=== PATIENT | female | born 1940 | race Caucasian/White ===

== ENCOUNTER 2023-08-23 18:06 | Emergency (ER) | payer OTHER, SELFPAY ==
[2023-08-23 18:08] VITALS: BP 171/94
--- NOTE | 2023-08-23 20:11 | ED.GENMED ---
History of Present Illness
General
Chief Complaint: Fall
Source: patient
Exam Limitations: none
Time Seen by Provider: 08/23/23 18:52
Nursing documentation reviewed up to this point in time: agreed with
Travel History
Have you had any contact with someone who has COVID-19?: No
Do you have any symptoms of coronavirus? Fever > 100 degrees, chills, cough, shortness of breath, sore throat, loss of taste or smell, muscle aches, or headache?: No
History of Present Illness
History of Present Illness:
83-year-old female with past ministry of hypertension hyperlipidemia presenting to the emergency department today after a trip and fall over a curb prior to arrival she did not lose consciousness but did hit the left side of her face and her left
wrist as well as in her right hand. Denies any current symptoms no neck pain no numbness weakness no chest pain no abdominal pain no low back pain. Patient is not on thinners.
Review of Systems
Review of Systems
Allergies reviewed?: Yes
All Other Systems: ROS reviewed and negative except as documented in HPI and ROS
Phy Exam
Physical Exam
Physical Exam:
GENERAL: Alert , in no apparent distress
EYE: pupils equal and reactive
NECK: Supple, no significant adenopathy.
ENT: Swelling to her left eye but otherwise normal appearing eye normal extraocular movements. Laceration to left upper lip is very superficial no gaping no foreign body seen normal posterior pharynx o/p clr, mmm.
CARDIAC: Regular rate and rhythm .
LUNGS: Clear breath sounds bilaterally, no acute respiratory distress, no wheezes/rales/rhonchi
ABDOMEN: Soft, without focal tenderness, no r/g, no cvat
NEUROLOGICAL: Alert and oriented, no focal neuro deficits 5-5 upper and lower extremity strength normal sensation were palpated bilaterally normal finger-nose and [id number] no pronator
SKIN: Warm and dry, skin intact. Superficial scrapes and abrasions throughout the hands bilaterally with a hematoma to the left wrist on the palmar aspect roughly 5 cm in diameter.
MUSCULOSKELETAL: No edema, well perfused.
PSYCH: Normal and appropriate interaction.
Course
Orders/Labs/Results
Orders:
Orders
08/23/23 18:18
[address] Bones wo Contrast CT [CT Facial Bones W/o Iv Contras] Urgent
Comment:
Reason For Exam: fall, head injury
Head wo Contrast CT [CT Head W/o Iv Contrast] Urgent
Comment:
Reason For Exam: fall with head injury
Vital Signs
Initial and Last Documented VS:
Initial Vital Signs
Temp Pulse Resp BP Pulse Ox
97.8 F 70 18 171/94 97
08/23/23 18:08 08/23/23 18:08 08/23/23 18:08 08/23/23 18:08 08/23/23 18:08
Last Documented Vital Signs
Temp Pulse Resp BP Pulse Ox
97.8 F 70 18 171/94 97
08/23/23 18:08 08/23/23 18:08 08/23/23 18:08 08/23/23 18:08 08/23/23 18:08
MDM/Problems Addressed
MDM/Problems Addressed:
83-year-old female presenting to the emergency department today with concerns of a fall where she did her face and her wrist bilaterally. Here had a CT scan of her head and face without signs of emergent findings. No signs of significant
lacerations requiring closure no signs of emergent injuries on exam from head to toe normal neurologic evaluation no neck pain. Patient appears stable for discharge return precautions given.
*Critical Care Note
Total Time (30-74mins, 75-104mins- exclusive of procedures): Not Applicable
ED Attending Note
-
Portions of this chart may have been created with voice recognition software.� Occasional wrong word or��sound alike� substitutions may have occurred due to the inherent limitations of voice recognition software.
Discharge Plan
Departure
Patient Disposition: Home (Routine Discharge)
Date of Disposition: 08/23/23
Time of Disposition: 20:11
Patient with high blood pressure during this ER visit?: No
Condition: Good
Covid-19: Not Applicable
Discharge Problem:
Fall, Laceration of lip, Abrasion of left eyebrow, Contusion of face, Hematoma of left wrist
Instructions: Wound Care (DC), Preventing falls in adults, Skin Abrasions (DC)
Activity Restrictions/Additional Instructions:
You came to the emergency department today after a fall. Here you had a reassuring examination and CT scans of the face and head without signs of emergent injury. Please rest and ice areas that are swollen and in pain over the next 2 to 3 days.
You can use warm compresses after this. Return to the emergency department immediately for any worsening, new or concerning symptoms.
Interventions
Interventions:
*Risk Screen - Suicide Last Done: 08/23/23 20:16
*General Assessment Last Done: 08/23/23 20:16
*Neglect/Abuse Screening Last Done: 08/23/23 20:16
ED- Fall Risk Assessment Last Done: 08/23/23 20:16
*ED COVID-19 Vaccine History Last Done: 08/23/23 19:25
*Nursing Disposition Last Done: 08/23/23 20:16
ED-Musculoskeletal Assessment Last Done: 08/23/23 19:25
ED- Neurological Assessment Last Done: 08/23/23 19:25
ED-Skin Assessment Last Done: 08/23/23 19:25
Discharge Date and Time
Discharge Date/Time: 08/23/23 20:18
== END 2023-08-23 20:18 | disposition home or self-care (01) ==
LOC: EMR 18:06
PROVIDERS: EMERGENCY PHYSICIAN Emergency Medicine; FAMILY PHYSICIAN Family Medicine
DX: S01.511A Laceration without foreign body of lip, initial encounter (principal); S60.812A Abrasion of left wrist, initial encounter; S60.212A Contusion of left wrist, initial encounter; W01.0XXA Fall on same level from slipping, tripping and stumbling without subsequent striking against object, initial encounter
CPT/HCPCS: 99284; 70450; 70486

== ENCOUNTER 2023-09-25 16:30 | Inpatient (IN) | payer OTHER, SELFPAY ==
[2023-09-25] VITALS (7 sets, daily range): BP systolic 138–191; BP diastolic 68–109; BMI 25.4; BMI 22.1
[2023-09-25 14:39] LABS: Glucose - Point of Care 92 mg/dl (70-99)
--- NOTE | 2023-09-25 14:43 | ED.CVA ---
History of Present Illness
General
Chief Complaint: CVA/TIA Symptoms
Source: patient and ambulance crew
Exam Limitations: none
Time Seen by Provider: 09/25/23 14:41
Onset of Stroke Symptoms
Onset of symptoms known: Yes
Date of onset of symptoms: 09/25/23
Time of onset of symptoms: 04:00
History of Present Illness
History of Present Illness:
83-year-old female got up at 3 AM for unknown reason. At 4 AM noted a change in mental status difficulty with speech and weakness. She collapsed to the floor at around noon time. No thinners.
Past History
Past History
ED Past Medical History: HTN and Hypothyroidism
Social History
Tobacco: Non-smoker
Personal:
Living: with family
Employment: Retired
Phy Exam
Physical Exam
Physical Exam:
GENERAL: Alert and oriented in no apparent distress
EYE: Orbits normal.
NECK: Supple
CARDIAC: Regular rate and rhythm without any obvious murmurs.
LUNGS: Clear breath sounds,normal
ABDOMEN: Soft, without focal tenderness or distention
NEUROLOGICAL: Alert and oriented , mild slurred speech. Mild right facial droop. Mild right arm drift. Mild lower right leg drift. Poor [id number] on the right.
SKIN: Warm and dry, no rash or lesion, no discoloration, skin intact.
MUSCULOSKELETAL: No edema,no deformity.Good color
PSYCH: Normal and appropriate interaction.
Course
Orders/Labs/Results
Orders:
Orders
09/25/23 14:37
Electrocardiogram (*1) Urgent
Reason for Study: Other
Other Reason for Exam: Possible Stroke
Bedside Glucose- Treatment ONCE
Cardiac Monitoring- Treatment ONCE
EKG- Treatment ONCE
IV Insert/Care/Rem.- Treatment PRN
Vital Signs As Directed
Frequency: Other
Weight As Directed
Frequency: Once
Comment: ZERO STRETCHER SCALE FOR ACCURATE WEIGHT
O2 Therapy [RESP] Urgent
Titrate/Wean O2 to maintain O2 sat greater than (%): 93
Special Instructions: MAINTAIN CONTINUOUS O2 SATS > OR = 93%
09/25/23 14:41
CT Head W/o Cont STROKE ALERT Urgent
Comment:
Reason For Exam: Right facial droop/slurred speech/right-sided weak
CT Head/Neck Ang STROKE ALERT Urgent
Comment:
Reason For Exam: Right facial droop/weakness/slurred speech
IV Insert/Care/Rem.- Treatment PRN
09/25/23 14:44
Complete Blood Count/With Diff Urgent
Comprehensive Metabolic Panel Urgent
PTT Urgent
Prothrombin Time Urgent
Troponin I Urgent
09/25/23 15:25
Aspirin Chewable [Low Strength Aspirin] 324 mg PO NOW STA
Clopidogrel Bisulfate [Plavix] 300 mg PO NOW STA
09/25/23 15:32
Clopidogrel Bisulfate [Plavix] 300 mg .ROUTE .STK-MED ONE
09/25/23 16:13
Admit/Transfer Patient As Directed
Co-Sign Provider:
Level of Care: Inpatient admission
Assign to:: Telemetry
Physician / Group: hospitalist-Andres
Diagnosis: cva
Reason for Telemetry: CVA/TIA
Date to Stop Telemetry: 09/28/23
Time to Stop Telemetry: 11:00
Reason for Hospitalization: needs neuro, asa/plavix, studies, therapy etc
Expected length of stay greater than two midnights?: Yes
ELOS- Estimated Length of Stay in days: 3
I certify the patient meets the requirements for IP care: Yes
09/25/23 16:20
Code Status As Directed
Resuscitation Status: Full Code
09/25/23 17:17
Acetaminophen [Tylenol/Feverall] 650 mg RECTAL Q4HPRN PRN
Acetaminophen [Tylenol] 650 mg PO Q4HPRN PRN
09/25/23 17:17
Echo 2D MMode Color/Doppler Routine
Reason for Study: stroke/TIA
Case Management Consult ONCE
Case Management Consult: Discharge Planning
Comment: stroke/tia
DIETARY CONSULT Routine
Reason for Consult: stroke/TIA
NEUROLOGY CONSULT Urgent
Consulting Provider: Aleksey Narayan
Was physician already notified: Yes
Medical Lab Technologist Urgent
Comprehensive Metabolic Panel Routine
MR Brain Without Contrast Routine
Comment:
Reason For Exam: stroke/TIA
Recent pill cam endoscopy?: No
Activity As Directed
Activity Level: As Tolerated
NIH Stroke Scale As Directed
Directions: Per protocol
Comment: every shift and with any change in condition or mental status
Neurological Checks As Directed
Frequency: q4h
Additional Instructions:: q4h x 24h upon admission to the floor, then qshift & with any change in condition
and mental status
Patient Education As Directed
Type: Stroke education packet
Comment: provide to patient and family
Pneumatic Compression Sleeves As Directed
Type: Knee high
Swallow Screening CVA/TIA ONLY As Directed
Comment: NPO until swallowing screening completed
If patient FAILS swallow screening:: NPO, Speech Therapy consult, Aspiration Precautions
If patient PASSES swallow screening, diet:: Cholesterol Lowering
Vital Signs As Directed
Frequency: Per unit guidelines
Ot Eval And Treat Routine
Pt Eval And Treat Routine
Activity Level: As Tolerated
Speech Therapy Eval & Treat Routine
US Cerebrovascular Routine
Comment:
Reason For Exam: stroke/TIA
DX Deep Vein Thrombosis Video Routine
09/25/23 18:00
Rosuvastatin Calcium [Crestor] 20 mg PO QPM
09/26/23 06:00
Cardiovascular Evaluation IN AM
Complete Blood Count/No Diff IN AM
Magnesium IN AM
Levothyroxine [Synthroid] 12.5 mcg PO DAILY @ 0600
Levothyroxine [Synthroid] 50 mcg PO DAILY@0600
09/26/23 08:00
Aspirin Chewable [Low Strength Aspirin] 81 mg PO DAILY
Citalopram [Celexa] 20 mg PO DAILY
Clopidogrel Bisulfate [Plavix] 75 mg PO DAILY
Losartan [Cozaar] 100 mg PO DAILY
Metoprolol Xl [Toprol Xl] 25 mg PO DAILY
09/28/23 11:00
DC Protocol for Telemetry ONCE
Abnormal Lab Results
09/25/23
14:44
Absolute Monos (auto) 0.7 H 10^3/uL
(0.1-0.6)
Lymphocytes % 16.1 L %
(20.5-51.1)
Sodium 132 L mmol/L
(135-145)
09/25/23 14:44
09/25/23 14:44
Vital Signs
Initial and Last Documented VS:
Initial Vital Signs
Pulse Resp
71 15
09/25/23 14:38 09/25/23 14:38
Last Documented Vital Signs
Temp Pulse Resp BP Pulse Ox
97.7 F 71 16 156/91 97
09/25/23 17:26 09/25/23 17:26 09/25/23 17:26 09/25/23 17:26 09/25/23 17:26
*Radiology
Radiology exam reviewed: radiology read reviewed (CT head negative. No retrievable clot. No M1 M2 70% left proximal internal carotid stenosis)
*Pulse Oximetry
Patient hypoxic: no
*EKG
Interpreted by ED Provider?: Yes
Interpretation: abnormal
Comparison EKG: no comparison EKG present
Heart Rate: 76
Rate: normal
Rhythm: sinus
[place]: normal axis
Interval: normal interval
QRS Pattern: left bundle branch block
Ischemia: no ischemia
*Bankruptcy Assistant Interpretation
Rate: normal
Interpretation: normal
Heart Rate: 77
Rhythm: sinus
*Critical Care Note
Total Time (30-74mins, 75-104mins- exclusive of procedures): 45
Update Note
Update Note:
1500... states that she was fine at 4 AM. He went back to bed. At 730 he came down she was in the chair and had inability to stand up or walk. She did try to walk after that was able to get up the stairs but had difficulties. She had
difficulties in the shower and difficulty moving after that. She then was placed into bed but tried to go to the bathroom and could not get off the floor. Clearly the symptoms started at the latest 7:30 in the morning at some point between 4 AM
and 730. Not a thrombolytic candidate. Discussed with neurology. If she has a retrievable clot we will send her for perfusion scan. Family updated.
1530.... Family updated. 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 No retrievable clot. CT head negative. Discussed with neurology. Dual antiplatelet therapy. Hospitalist notified.
ED Attending Note
-
Portions of this chart may have been created with voice recognition software.� Occasional wrong word or��sound alike� substitutions may have occurred due to the inherent limitations of voice recognition software.
Discharge Plan
Departure
Patient Disposition: Admit
Date of Disposition: 09/25/23
Time of Disposition: 15:28
Presentation/result/management discussed w/ accepting MD/DO: Neurology
Discharge Problem:
Acute CVA
Interventions
Interventions:
*Risk Screen - Suicide Last Done: 09/25/23 14:51
*General Assessment Last Done: 09/25/23 14:51
*Neglect/Abuse Screening Last Done: 09/25/23 14:51
ED- Fall Risk Assessment Last Done: 09/25/23 15:02
*ED COVID-19 Vaccine History Last Done: 09/25/23 14:49
*Nursing Disposition Last Done: 09/25/23 17:06
ED- Pulmonary Assessment Last Done: 09/25/23 15:02
ED- Neurological Assessment Last Done: 09/25/23 14:38
ED- Cardiac Assessment Last Done: 09/25/23 15:02
ED Swallowing Screen Last Done: 09/25/23 15:25
Discharge Date and Time
Discharge Date/Time: 09/25/23 17:10
[2023-09-25 14:56] LABS: % Basophils 0.9 % (0-2); % Eosinophils 0.7 % (0-6); % Immature Granulocytes 0.3 % (0-0.5); % Lymphocytes 16.1 % (20.5-51.1); % Monocytes 8.5 % (1.7-9.3); % Neutrophils 73.5 % (42.2-75.2); Absolute Basophils 0.1 10^3/uL (0-0.2); Absolute Eosinophils 0.1 10^3/uL (0-0.7); Absolute Lymphocytes 1.4 10^3/uL (1.2-3.4); Absolute Monocytes 0.7 10^3/uL (0.1-0.6); Absolute Neutrophils 6.4 10^3/uL (1.4-6.5); Hematocrit 39.2 % (37.0-47.0); Hemoglobin 13.6 g/dL (12.0-16.0); Mean Corp Hgb Conc. 34.7 g/dL (33.0-37.0); Mean Corpuscular Hgb 29.8 pg (27.0-31.0); Mean Corpuscular Volume 85.8 fL (81.0-99.0); Mean Platelet Volume 8.9 fL (7.4-10.4); Nucleated Red Blood Cells % 0 %; Platelet Count 179 10^3/uL (130-400); Red Blood Cell Count 4.57 10^6/uL (4.20-5.40); Red Cell Dist. Width 13.3 % (11.5-14.5); White Blood Cell Count 8.7 10^3/uL (4.8-10.8)
[2023-09-25 15:02] LABS: INR 1.02; PT 13.2 Sec (11.4-14.6)
[2023-09-25 15:03] LABS: ALT (SGPT) 19 U/L (0-35); APTT 29.4 Sec (23.4-35.0); AST (SGOT) 34 U/L (14-36); Albumin 4.2 g/dl (3.5-5.0); Alkaline Phosphatase 91 U/L (38-126); Blood Urea Nitrogen 15 mg/dl (7-17); Calcium 9.4 mg/dl (8.4-10.2); Carbon Dioxide 25 mmol/L (22-30); Chloride 103 mmol/L (98-107); Estimated Creatinine Clearance 48 ml/min; Glucose 99 mg/dl (70-99); Potassium 4.1 mmol/L (3.5-5.1); Sodium 132 mmol/L (135-145); Total Bilirubin 0.7 mg/dl (0.2-1.3); Total Protein 6.7 g/dl (6.3-8.2); eGFR > 60.00
[2023-09-25 15:15] LABS: Troponin I < 0.012 ng/ml
[2023-09-25] MEDS: PLAVIX 300 MG PO (15:30)
[2023-09-25] MEDS: LOW STRENGTH ASPIRIN 324 MG PO (15:33)
--- NOTE | 2023-09-25 16:24 | HPS.HSE ---
Family Physician
-
Family Physician: Brunilda Childress
Chief Complaint
-
found on floor, facial droop
History of Present Illness
Patient is an 83-year-old female who history has been obtained through her . Patient said she could not move her right leg earlier today approximately 7:30 in the morning so her gave her 2 Tylenol and Job wrap to the leg and she does
have chronic issues with that. She was doing okay and had no issues swallowing to Tylenol that he gave her and he put her or kept her in bed. Around 1130 he went upstairs and found her on the floor in the bathroom. He stated that she was sitting
on her but trying to scoot out from the bathroom. He he said she told him that she had trouble getting up from the toilet. He noticed a facial droop at that time. EMS was called and the patient was brought to the emergency room.
Medical History
Past Medical History
Past Medical History: Reports Other
Additional Past Medical History:
Essential hypertension
Hypothyroidism
Depression/anxiety
Past Surgical History: Reports Other
Additional Past Surgical History:
Total hysterectomy
Social History
Tobacco: Non-smoker
Alcohol: Daily (1 drink per day)
Drug: None
Personal:
Living: With Family
Family History
Family History: Not pertinent
Allergies / Home Medications
Allergies reflects when Allergies were last updated in [facility].
Home Medications with original date entered in [facility]
Allergy/Medication List:
Allergies
Allergy/AdvReac Type Severity Reaction Status Date / Time
No Known Allergies Allergy Verified 08/23/23 18:08
Home Medications
acetaminophen 325 mg tablet (Tylenol) 650 mg PO Q4HPRN PRN knee pains 09/25/23
citalopram 20 mg tablet (Celexa) 20 mg PO DAILY 09/25/23
levothyroxine 50 mcg tablet (Synthroid) 50 mcg PO DAILY 09/25/23 --in addition, patient takes 12.5 mcg of Synthroid along with the 50 daily
losartan 100 mg tablet 100 mg PO DAILY 09/25/23
metoprolol succinate 25 mg tablet,extended release 24 hr (Toprol XL) 25 mg PO DAILY 09/25/23
Review of Systems
-
History Source: Patient
A 12 point ROS was completed and negative except as noted: Yes
Constitutional: Denies Fever or Chills
EENT: Reports No Symptoms
Respiratory: Denies Cough or Trouble Breathing
Cardiac: Denies Chest Pain or Palpitations
Abdomen/GI: Denies Abdominal Pain, Nausea, Vomiting, Diarrhea or Constipated
: Reports No Symptoms
Musculoskeletal: Reports Other (Trouble moving right leg)
Neurological: Reports Weakness (Trouble moving right leg); Denies Dizzy, Headache or Numbness
Endocrine: Reports No Symptoms
Hematologic/Lymphatic: Reports No Symptoms
Psych: Reports No Symptoms
Physical Exam
Vital Signs
Vital Signs
Temp Pulse Resp BP Pulse Ox
98.2 F 66 20 164/82 97
09/25/23 15:07 09/25/23 16:15 09/25/23 16:15 09/25/23 16:00 09/25/23 16:15
Physical Exam
General: Well Developed, Well Nourished and No Apparent Distress
HEENT: NormoCephalic and Anicteric; No Oxygen
Respiratory: Clear; No Wheezes, Rales, Rhonchi or Crackles
Cardiac: S1/S2 and Regular Rhythm; No Murmur
GI: Soft, Non Tender, Non Distended and Normal Bowel Sounds
Musculoskeletal: No Clubbing, No Cyanosis and No Edema
Skin: Warm and Dry
Neuro: Awake, Alert, Oriented, Nonfocal/grossly intact and Facial Droop
Psych: Calm
Laboratory Results
-
09/25/23 14:44
09/25/23 14:44
Laboratory Results
PT 13.2 Sec (11.4-14.6) 09/25/23 14:44
INR 1.02 09/25/23 14:44
APTT 29.4 Sec (23.4-35.0) 09/25/23 14:44
Total Bilirubin 0.7 mg/dl (0.2-1.3) 09/25/23 14:44
AST 34 U/L (14-36) 09/25/23 14:44
ALT 19 U/L (0-35) 09/25/23 14:44
Alkaline Phosphatase 91 U/L (38-126) 09/25/23 14:44
Troponin I < 0.012 ng/ml 09/25/23 14:44
Impression/Plan
-
Patient is an 83-year-old female
Acute CVA--given her right facial droop and complaints of right leg trouble along with a 70% left proximal internal carotid artery stenosis, this is likely an acute stroke--ADMIT to tele--consult neurology--continue aspirin and Plavix--start 20 mg
Crestor--check lipids--check MRI--consult PT/OT/speech
Hypothyroidism--continue 62.5 mg of Synthroid--check TSH
Essential hypertension-- states blood pressure usually runs 120s over 70s or 80s--continue losartan and metoprolol to start tomorrow with parameters--permissive hypertension to be allowed today--keep systolic blood pressure less than
200/diastolic blood pressure less than 110
Depression/anxiety--continue Celexa
Alcohol use--patient drinks 1 drink per day--watch for DTs
DVT prophylaxis--sequential teds
CODE STATUS--full code
[2023-09-25] MEDS: CRESTOR 20 MG PO (18:41)
[2023-09-25 18:42] LABS: ALT (SGPT) 17 U/L (0-35); AST (SGOT) 33 U/L (14-36); Albumin 3.8 g/dl (3.5-5.0); Alkaline Phosphatase 87 U/L (38-126); Blood Urea Nitrogen 13 mg/dl (7-17); Calcium 9.2 mg/dl (8.4-10.2); Carbon Dioxide 24 mmol/L (22-30); Chloride 104 mmol/L (98-107); Estimated Creatinine Clearance 55 ml/min; Glucose 98 mg/dl (70-99); Potassium 3.7 mmol/L (3.5-5.1); Sodium 131 mmol/L (135-145); Total Bilirubin 0.7 mg/dl (0.2-1.3); Total Protein 6.3 g/dl (6.3-8.2); eGFR > 60.00
[2023-09-26 04:01] VITALS: BP 171/95
[2023-09-26] MEDS: SYNTHROID 12.5 MCG PO (06:13)
[2023-09-26] MEDS: SYNTHROID 50 MCG PO (06:15)
[2023-09-26 07:23] LABS: Hematocrit 39.5 % (37.0-47.0); Hemoglobin 13.7 g/dL (12.0-16.0); Mean Corp Hgb Conc. 34.7 g/dL (33.0-37.0); Mean Corpuscular Hgb 29.8 pg (27.0-31.0); Mean Corpuscular Volume 86.1 fL (81.0-99.0); Mean Platelet Volume 9.9 fL (7.4-10.4); Platelet Count 176 10^3/uL (130-400); Red Blood Cell Count 4.59 10^6/uL (4.20-5.40); Red Cell Dist. Width 13.2 % (11.5-14.5)
--- NOTE | 2023-09-26 08:09 | CON.NEURO4 ---
Addendum entered and electronically signed by Aleksey Narayan MD 09/26/23 11:00:
I saw and evaluated the patient I reviewed note by Funmilayo White and agree with the findings the following comments:
83-year-old right-handed woman with a past medical history of hypertension presented to hospital as a stroke alert due to right-sided arm and face weakness along with aphasia. She was outside the time window for thrombolytic symptoms seem to have
an onset by 730 at the latest, last known completely normal around 4 AM. No recent illnesses no history of TIA or stroke or taking any antithrombotics at baseline. CTA of the head neck shows no large vessel occlusion and patient was given aspirin
and clopidogrel loading doses and admitted for stroke work up.
Patient currently denies any pain or headache but has limited ability to give history due to aphasia. Spoke with over phone who related no history of neurologic deficits at baseline not taking any antithrombotics.
Neurologic examination shows a mild to moderate mixed expressive and receptive aphasia patient can obey two-step commands and can repeat simple phrases decreased fluency and decrease in spontaneous verbal output. Minor dysarthria is present, mild
right tongue deviation, mild right facial droop and right arm and leg drift.
CT head noncontrast not showing any acute infarct aspect score of 10 no hemorrhage or masses seen
CTA of the head and neck images reviewed no large vessel intracranial occlusion I do appreciate left-sided internal carotid stenosis in the range of 60 to 70%, no dissection seen in the carotids or vertebral arteries.
Carotid ultrasound supportive of 50 to 69% stenosis on the left
Assessment: High degree of suspicion for symptomatic left carotid stenosis given right face arm and leg weakness along with aphasia indicating a likely left MCA territory infarct.
Recommendations
-Pursue goal normotension would aim for systolic blood pressure less than 180
-Neurologic checks and NIH stroke scale
-Monitor on cardiac telemetry and check transthoracic echocardiogram
-Check MRI of the brain without contrast
-Continue aspirin and clopidogrel DAPT therapy for 21 days then aspirin 81 mg thereafter
-Continue rosuvastatin 20 mg daily
-Vascular surgery consultation given suspicion for symptomatic left carotid stenosis as cause of stroke
Discussed with patient, discussed with patient's over the phone
Will follow
Original Note:
Documented by User: Funmilayo Levy NP 09/26/23 10:45
Consultation - Neurology 4
-
CONSULTING PHYSICIAN: Tasia Narayan MD
REFERRING PHYSICIAN: Hospitalists/Dr. Campos
DICTATED BY: SHELL Hernandez
DATE/TIME OF REQUEST: 09/25/23
DATE/TIME OF CONSULTATION: 09/26/23
Reason for Consultation: CVA, carotid stenosis
History of Present Illness:
This is an 83-year-old right-handed female who has presented to the hospital on 09/25/23 with report of right-sided weakness, right facial drooping, and slurred speech. Patient is unable to provide a history and reports not remembering the events of
yesterday, so the majority of this information is obtained from medical records. Patient notes that yesterday morning (09/25/23) she woke up around 0400 to use the bathroom and seemed at her normal baseline, so her went back to sleep.
He woke up at 0730 and found her in a chair. She was unable to stand up or walk without assistance and had difficulty taking a shower. He attributed her right leg weakness to her chronic RLE issues and wrapped her leg in an blu wrap and gave her two
Tylenol. She laid back down in bed and around 1130 he went upstairs to check on her and found her on the floor in the bathroom. At that time he noticed that her right face was drooping and he called EMS. On arrival in the ER, CT head was obtained
and was negative for any acute abnormalities. CTA head/neck was also obtained and demonstrates L ICA 70% stenosis. She was not a candidate for TNK/IAT due to outside of the time window and no LVO. She was loaded with DAPT in the ER. Currently,
patient reports feeling 'funny.' She notes that her speech feels 'fuzzy.' She is unable to provide answers to questioning on if she has had any loss of vision or diplopia in the past. She denies any history of TIA, stroke, or symptoms similar to
this in the past and she was not taking any blood-thinning medications.
Past Medical History: HTN, hypothyroidism, depression, anxiety
Surgical History: DEREK
Family History: Reviewed and noncontributory.
Social History: Denies tobacco and illicit drug use. One alcoholic beverage daily.
Allergies: No known allergies.
Home Medications: See below.
Review of Symptoms:
Patient denies any fever, headache, chest pain, shortness of breath, GI or symptoms.
�Per the HPI.�All systems are reviewed negative except above.
Physical Exam:
The patient is afebrile, abdomen is nondistended, breathing is unlabored, skin is warm and dry, no edema.
NIH Stroke Scale:
I performed the NIH stroke scale on the patient on 09/26/23 at 0900. The patient scored 6 points on the NIH stroke scale assessment, which were assigned as follows: See below.
Neurologic Examination:
The patient is awake, alert and oriented x 3. She is able to follow two-step commands and answer simple questions appropriately. There is mild aphasia in attempting to provide answers to questions. There is mild dysarthria. On cranial nerve
assessment, pupils are 3 mm bilateral, round and reactive to light and accommodation. Visual johnson are full. Extraocular movements are intact. There is a right facial droop, tongue appears mildly deviated to the right. Hearing is intact bilaterally
to normal conversation volume. Motor strengths are 5/5 left upper, 5-/5 right upper, 5/5 left lower, and 5-/5 right lower extremities on medical research [place] scale. There is very slight drift in the RUE and RLE. No involuntary movement noted.
Deep tendon reflexes are 2+ bilateral upper and lower extremities and Babinski is absent bilaterally. Sensations of touch, temperature and vibration are intact and bilaterally symmetrical. There was no extinction noted on double simultaneous
stimulation. Coordination is ataxic in the RUE.
Lab Results: See below.
Neuro Imaging:
1. CT Head 09/25/23: No acute intracranial abnormality noted. Minimal nonacute sinusitis. Aspects score 10.
2. CTA Head/Neck 09/25/23: No evidence of M1 nor M2 occlusion. No carotid dissection. 70% left proximal internal carotid artery stenosis. 50% distal left common carotid artery stenosis.
3. Carotid ultrasound 09/26/23: RIGHT: Plaque is identified in the carotid bulb and internal carotid artery. Carotid velocity profile is consistent with less than 50% stenosis. Vertebral artery flow is antegrade. Low end-diastolic velocities may
indicate more distal occlusive disease. LEFT: Calcified plaque is identified in the proximal internal carotid artery. Acoustic shadowing limits complete evaluation of the proximal internal carotid artery. Carotid velocity profile is consistent 50
to 69% stenosis by IC/CCA ratio only (measured peak systolic velocity and end-diastolic velocity are consistent with less than 50% stenosis). Vertebral artery flow is antegrade
Differentials for the patient's presentation include:
1. Likely symptomatic left ICA stenosis causing an acute left-hemisphere ischemic infarct.
2. Left ICA stenosis.
3. Hyponatremia
Patient has the following risk factors for their symptoms: L ICA stenosis, HTN, HLD, age
IV Tenecteplase/IAT candidacy: She was not a candidate for TNK/IAT due to outside of the time window and no LVO.
Recommendations:
-Continue DAPT for 21 days. After 21 days, discontinue Plavix and continue aspirin 81mg daily only, indefinitely.
-Goal normotension as it is greater than 24 hours from symptom onset.
-MRI brain noncontrast ordered/pending.
-Vascular surgery consult placed.
-LDL goal <70. LDL is 106. Rosuvastatin 20mg daily initiated.
-Goal normoglycemia, hbA1c is pending.
-NIHSS and neurological checks per unit guidelines.
-Patient/family provided with a stroke education packet.
-PT/OT/ST evaluations.
-DVT prophylaxis.
-Will follow pending results.
Discussed patient care with: Dr. Narayan, the patient
Vital Signs and Labs
-
Vital Signs and Labs:
Vital Signs
Temp Pulse Resp BP Pulse Ox
98 F 73 14 175/96 98
09/26/23 08:26 09/26/23 08:26 09/26/23 08:26 09/26/23 08:26 09/26/23 08:26
Lab Results
09/26/23 06:27
09/25/23 18:00
PT 13.2 Sec (11.4-14.6) 09/25/23 14:44
INR 1.02 09/25/23 14:44
APTT 29.4 Sec (23.4-35.0) 09/25/23 14:44
Sodium 131 mmol/L (135-145) L 09/25/23 18:00
Potassium 3.7 mmol/L (3.5-5.1) 09/25/23 18:00
BUN 13 mg/dl (7-17) 09/25/23 18:00
Glucose 98 mg/dl (70-99) 09/25/23 18:00
Calcium 9.2 mg/dl (8.4-10.2) 09/25/23 18:00
LDL Cholesterol, Calc 106 mg/dl 09/26/23 06:27
Medications
-
Active Medications
Generic Name Dose Route Start Last Admin
Trade Name Freq PRN Reason Stop Dose Admin
Acetaminophen 650 mg 09/25/23 17:17
Acetaminophen 650 Mg Rectal Suppository RECTAL 10/23/23 17:16
Q4HPRN PRN
JOSEPH, mild pain, or temp >100.4F
Acetaminophen 650 mg 09/25/23 17:17
Acetaminophen 325 Mg Tablet PO 10/23/23 17:16
Q4HPRN PRN
JOSEPH, mild pain, or temp >100.4F
Aspirin 81 mg 09/26/23 08:00 09/26/23 09:28
Aspirin 81 Mg Chewable Tablet PO 10/24/23 07:59 81 mg
DAILY LUDMILA Administration
Citalopram Hydrobromide 20 mg 09/26/23 08:00 09/26/23 09:28
Citalopram 20 Mg Tablet PO 10/24/23 07:59 20 mg
DAILY LUDMILA Administration
Clopidogrel Bisulfate 75 mg 09/26/23 08:00 09/26/23 09:28
Clopidogrel 75 Mg Tablet PO 10/24/23 07:59 75 mg
DAILY LUDMILA Administration
Levothyroxine Sodium 50 mcg 09/26/23 06:00 09/26/23 06:15
Levothyroxine 50 Mcg Tablet PO 10/24/23 05:59 50 mcg
DAILY@0600 LUDMILA Administration
Levothyroxine Sodium 12.5 mcg 09/26/23 06:00 09/26/23 06:13
Levothyroxine 25 Mcg Tablet PO 10/24/23 05:59 12.5 mcg
DAILY @ 0600 LUDMILA Administration
Losartan Potassium 100 mg 09/26/23 08:00 09/26/23 09:28
Losartan 100 Mg Tablet PO 10/24/23 07:59 100 mg
DAILY LUDMILA Administration
Metoprolol Succinate 25 mg 09/26/23 08:00 09/26/23 09:28
Metoprolol 25 Mg Extended Release Tablet PO 10/24/23 07:59 25 mg
DAILY LUDMILA Administration
Rosuvastatin Calcium 20 mg 09/25/23 18:00 09/25/23 18:41
Rosuvastatin (Crestor) 20 Mg Tablet PO 10/23/23 17:59 20 mg
QPM LUDMILA Administration
Sodium Chloride 0 flush 09/25/23 18:00
Sodium Chloride 0.9% (Flush) Syringe IV 10/23/23 17:59
PER PROTOCOL LUDMILA
Home Medications
�Medication �Instructions �Recorded
acetaminophen 325 mg tablet 650 mg PO Q4HPRN PRN knee pains 09/25/23
(Tylenol)
citalopram 20 mg tablet (Celexa) 20 mg PO DAILY depression/anxiety 09/25/23
levothyroxine 50 mcg tablet 50 mcg PO DAILY Thyroid 09/25/23
(Synthroid)
losartan 100 mg tablet 100 mg PO DAILY Blood Pressure 09/25/23
metoprolol succinate 25 mg 25 mg PO DAILY Blood Pressure 09/25/23
tablet,extended release 24 hr
(Toprol XL)
NIH Stroke Score
Subsequent NIH Scale
Date of Subsequent NIH Scale: 09/26/23
Time of Subsequent NIH Scale: 09:00
NIH Stroke Score
Level of Consciousness: 0 - Alert
LOC Questions: 0-Answers both correctly
LOC Commands: 0-Performs both correctly
Best Horizontal Gaze: 0-Normal
Visual Johnson: 0=Normal, no visual loss
Facial Palsy: 1=Minor paralysis
Motor - Right Arm: 1=Drift < 10 seconds
Motor - Left Arm: 0=No drift 10 seconds
Motor - Right Le-Drift < 5 seconds
Motor - Left Le-No drift 5 seconds
Limb Ataxia: 1-Present in one limb
Sensation: 0-Normal
Best Language: 1-Mild aphasia
Dysarthria: 1-Mild slurring
Extinction and Inattention: 0-No abnormality
Total Score:: 6
Modified Moca (mRS) Score
Modified [place] Scale (mRS): Moderately severe disability. Unable to attend to bodily needs/walk.
Score: 4

Documented by User: Aleksey Narayan MD 09/26/23 10:56
NIH Stroke Score
NIH Stroke Score
Total Score:: 6
Modified Moca (mRS) Score
Score: 4
[2023-09-26 08:10] LABS: HDL Cholesterol 93 mg/dl; LDL Cholesterol, Calculated 106 mg/dl; Total Cholesterol 225 mg/dl (50-199); Triglyceride 131 mg/dl (10-149); Very Low Density Lipoprotein 26 mg/dl (0-30)
[2023-09-26 08:26] VITALS: BP 175/96
[2023-09-26] MEDS: PLAVIX 75 MG PO (09:28)
[2023-09-26] MEDS: COZAAR 100 MG PO (09:28)
[2023-09-26] MEDS: TOPROL XL 25 MG PO (09:28)
[2023-09-26] MEDS: CELEXA 20 MG PO (09:28)
[2023-09-26] MEDS: LOW STRENGTH ASPIRIN 81 MG PO (09:28)
[2023-09-26 12:15] LABS: Glycohemoglobin (HgbA1c) 5.9 % (4.0-5.6)
[2023-09-26 12:22] LABS: TSH Reflex To Free T4 2.57 uIU/ml (0.47-4.68)
[2023-09-26 12:43] VITALS: BP 145/72
[2023-09-26 12:57] LABS: Folate > 20.0 ng/ml (2.76-20); Vitamin B12 472 pg/ml (239-931)
--- NOTE | 2023-09-26 13:26 | W.PN.HOSP.TC ---
Today's Communication/Plan
-
Continue on dual antiplatelet therapy/continue support stroke protocol
Monitor BP is now past course of permissive hypertension
Statin therapy initiated although has history of statin induced myalgias unclear which specific
Consult vascular surgery in regards to internal carotid stenosis
Consult to physiatry for eventual rehab
Assessment / Plan
Assessment / Plan
Patient is an 83-year-old female who history has been obtained through her . Patient said she could not move her right leg earlier today approximately 7:30 in the morning so her gave her 2 Tylenol and Job wrap to the leg and she does
have chronic issues with that. She was doing okay and had no issues swallowing to Tylenol that he gave her and he put her or kept her in bed. Around 1130 he went upstairs and found her on the floor in the bathroom. He stated that she was sitting
on her but trying to scoot out from the bathroom. He he said she told him that she had trouble getting up from the toilet. He noticed a facial droop at that time. EMS was called and the patient was brought to the emergency room.
Patient is an 83-year-old female
Acute CVA--given her right facial droop and complaints of right leg trouble along with a 70% left proximal internal carotid artery stenosis, this is likely an acute stroke-
-also noted on carotid ultrasound
-ADMIT to tele-
-consult neurology--continue aspirin and Plavix--start 20 mg Crestor(describes prior statin induced myalgias)--check lipids-
-check MRI-focal nonhemorrhagic acute infarct in the left denson radiata.
-consult PT/OT/speech
-Consult placed to vascular surgery
-Also placed consult for PMNR
Hypothyroidism--continue 62.5 mg of Synthroid--check TSH
Essential hypertension-- states blood pressure usually runs 120s over 70s or 80s--continue losartan and metoprolol to start tomorrow with parameters--permissive hypertension to be allowed today--keep systolic blood pressure less than
200/diastolic blood pressure less than 110
Depression/anxiety--continue Celexa
Alcohol use--patient drinks 1 drink per day--watch for DTs
DVT prophylaxis--sequential teds
CODE STATUS--full code
Anticipated Discharge: 24 - 48 hours
Subjective/Interval History
-
Date of Service: September 26, 2023
Some return of function in right upper extremity and leg mild cough and tries to clear her throat. Speech slurred
Objective Data
-
Labs:
Laboratory Results
09/26/23
06:27
WBC 9.0
Hgb 13.7
Hct 39.5
Plt Count 176
Vital Signs:
Vital Signs
Temp Pulse Resp BP Pulse Ox
98.3 F 70 18 145/72 96
09/26/23 12:43 09/26/23 12:43 09/26/23 12:43 09/26/23 12:43 09/26/23 12:43
I&O
09/25/23 09/26/23 09/27/23
06:59 06:59 06:59
Intake Total 100 / 100
Balance 100 / 100
Review of Systems
-
History Source: Patient and Family
Constitutional: Reports Weakness
Respiratory: Reports No Symptoms
Cardiac: Reports No Symptoms
Abdomen/GI: Reports No Symptoms
Physical Exam
-
General: Well Developed
HEENT: Normocephalic and Other (Nasolabial droop)
Respiratory: Clear to Auscultation
Cardiac: Regular Rhythm
GI: Soft
Neuro: Awake and Slurred Speech; Negative No Motor Deficits (Right arm drift) or Nonfocal/Grossly Intact (Nasolabial droop/dysarthria)
Psych: Calm
Data Reviewed
-
Total Time Spent with Patient (in minutes): 56
CT Scan: Report Reviewed by me
Ultrasound: Report Reviewed by me
Medical Tests (Nuc Med, Echo etc): Image personally visualized and interpreted
--- NOTE | 2023-09-26 13:27 | CM ---
Addendum entered by Nicky Riley 09/26/23 14:50:
Plan; [place] [facility] at [facility] when stable.
Original Note:
guest house manager reviewed patient's chart and met with patient and patient lives with her spouse in a condo with 15 steps to enter, patient is independent with adl's and ambulation, no dme, patient drives, patient has a prescription plan and uses [facility]. guest house manager reviewed with spouse and patient possible discharge planning options and patient may require acute rehab, paateint and patient's spouse are agreeable to [place] [facility] at [facility], referral sent and PM&R consult
requested.
PCP: Brunilda Childress.
Plan [place] [facility] at [facility] when stable.
--- NOTE | 2023-09-26 13:46 | W.PN.UPDATE ---
Update Note
Progress Note Update
Seen and examined with MANUELITO Lim. Full consultation to follow. Briefly 83-year-old female who yesterday morning at 7:30 AM had acute episode of right leg (possible right arm as well) weakness as well as expressive aphasia. Her also noted
facial asymmetry. Was brought to emergency room and worked up. We were asked to evaluate regarding left carotid stenosis in the setting. Per patient and family, her symptoms have improved somewhat but have not resolved to baseline. She still
notes some expressive difficulty. She does not feel as bothered in terms of right upper or lower extremity weakness. Denies any prior antecedent episodes of weakness unilaterally or speech dysarthria/expressive aphasia or amaurosis. No prior
strokes. She does note family history of her father having undergone carotid endarterectomy. Denies any history of coronary disease. Denies any tobacco use.
On exam/she is awake and alert. Head is normocephalic and atraumatic. Eyes are anicteric. Neck is soft no jugular venous distention. Breathing is unlabored. Neurologically moves all extremities. Right upper and right lower extremity appears to
have 5 out of 5 strength, but may be 5 - versus 5 on the other side. Noted persistent mild facial asymmetry. She also does have slight persistent expressive difficulty.
MRI report reviewed. Nonhemorrhagic left denson radiata acute infarct.
CT angiogram images from yesterday reviewed. Carotid duplex reviewed from today. Consistent with greater than 70% left carotid stenosis. Mixed/soft plaque noted in proximal internal carotid artery.
Plan/ Symptomatic left carotid artery stenosis. Left hemispheric infarct is noted. Discussed with patient and her family (her and her granddaughter at bedside) findings and recommendations. Discussed management of symptomatic carotid
stenosis. Discussed recommendation for revascularization for further stroke prevention. Discussed revascularization modalities. Discussed alternatives of carotid endarterectomy versus carotid stenting (would favor TCAR if stenting pursued).
Discussed my recommendation for left carotid endarterectomy given reasonable anatomy and suitable candidacy. Discussed procedure as well as expected outcomes. Discussed risk including but not limited to bleeding, infection, cardiac
complications/MD, cranial nerve injury, stroke (on the order of about 2% in the symptomatic setting). She and her understand all and likely wish for us to proceed. Will schedule tentatively surgery for Tuesday (09/28/2023) LEFT carotid
endarterectomy. I had reached out to neurologist earlier. He was in agreement with timeline in terms of revascularization (felt should be fine to proceed by Tuesday).
--- NOTE | 2023-09-26 13:52 | CON.VAS ---
Consultation
Consultation Request
Performing Provider: Abdifatah
Reason for Consultation: Carotid stenosis
Medical History
-
Chief Complaint: Aphasia and right-sided weakness
History of Present Illness:
83-year-old female who yesterday morning at 7:30 AM had acute episode of right leg (possible right arm as well) weakness as well as expressive aphasia. Her also noted facial asymmetry. Was brought to emergency room and worked up. We were
asked to evaluate regarding left carotid stenosis in the setting. Per patient and family, her symptoms have improved somewhat but have not resolved to baseline. She still notes some expressive difficulty. She does not feel as bothered in terms of
right upper or lower extremity weakness. Denies any prior antecedent episodes of weakness unilaterally or speech dysarthria/expressive aphasia or amaurosis. No prior strokes. She does note family history of her father having undergone carotid
endarterectomy. Denies any history of coronary disease. Denies any tobacco use.
On exam/she is awake and alert. Head is normocephalic and atraumatic. Eyes are anicteric. Neck is soft no jugular venous distention. Breathing is unlabored. Neurologically moves all extremities. Right upper and right lower extremity appears to
have 5 out of 5 strength, but may be 5 - versus 5 on the other side. Noted persistent mild facial asymmetry. She also does have slight persistent expressive difficulty.
MRI report reviewed. Nonhemorrhagic left denson radiata acute infarct.
CT angiogram images from yesterday reviewed. Carotid duplex reviewed from today. Consistent with greater than 70% left carotid stenosis. Mixed/soft plaque noted in proximal internal carotid artery.
Past Medical History
Past Medical History: HTN, Hypothyroidism and Psychiatric (depression/anxiety)
Past Surgical History: None
Social History
Tobacco: Non-Smoker
Alcohol: None
Drug: None
Personal:
Living: With Family
Family History
Family History: Reviewed & Not Pertinent
Allergies / Home Medications
Allergy/AdvReac Type Severity Reaction Status Date / Time
No Known Allergies Allergy Verified 08/23/23 18:08
�Medication �Instructions �Recorded �Confirmed �Type
acetaminophen 325 mg tablet 650 mg PO Q4HPRN PRN knee pains 09/25/23 09/25/23 History
(Tylenol)
citalopram 20 mg tablet (Celexa) 20 mg PO DAILY depression/anxiety 09/25/23 09/25/23 History
levothyroxine 50 mcg tablet 50 mcg PO DAILY Thyroid 09/25/23 09/25/23 History
(Synthroid)
losartan 100 mg tablet 100 mg PO DAILY Blood Pressure 09/25/23 09/25/23 History
metoprolol succinate 25 mg 25 mg PO DAILY Blood Pressure 09/25/23 09/25/23 History
tablet,extended release 24 hr
(Toprol XL)
Review of Systems
-
History Source: Patient and Family
All other systems: Negative unless noted
Constitutional: Reports No Symptoms
EENT: Reports No Symptoms
Respiratory: Reports No Symptoms
Cardiac: Reports No Symptoms
Vascular: Denies Leg Pain / Claudication
Abdomen/GI: Reports No Symptoms
: Reports No Symptoms
Musculoskeletal: Reports No Symptoms
Skin: Reports No Symptoms
Neurological: Reports Weakness and Other (speaking difficulty)
Endocrine: Reports No Symptoms
Physical Exam
Vital Signs
Temp Pulse Resp BP Pulse Ox
98.3 F 70 18 145/72 96
09/26/23 12:43 09/26/23 12:43 09/26/23 12:43 09/26/23 12:43 09/26/23 12:43
Lab Results
09/26/23 06:27
09/25/23 18:00
Troponin I < 0.012 ng/ml 09/25/23 14:44
Physical Exam
General: No Apparent Distress
HEENT: Normocephalic and Atraumatic
Respiratory: Non Labored Respirations
Cardiac: Negative JVD
Breast: Deferred by me
GI: Soft and Non Tender
Musculoskeletal: No Clubbing, No Cyanosis and No Edema
Skin: Warm
Neuro: Awake, Alert, Oriented and Other (mild right sided weakness, mild facial asymmetry, slight persistent expressive difficulty)
Psych: Calm
Assessment / Plan
-
Plan/ Symptomatic left carotid artery stenosis. Left hemispheric infarct is noted.
-Will schedule tentatively surgery for Tuesday (09/28/2023)
-Team aware and in agreement
-NPO after midnight Tuesday
Data Reviewed
-
CT Scan: Discussed with Patient
Ultrasound: Discussed with Patient
[2023-09-26 16:07] VITALS: BP 163/80
[2023-09-26] MEDS: CRESTOR 20 MG PO (16:33)
--- NOTE | 2023-09-26 17:42 | CON.MD ---
Documented by User: Odalys Eid PA-C 09/27/23 16:50
Consultation - Medical
-
Referring Provider:
Chief Complaint: CVA wit right sided weakness and aphasia
History of Present Illness: 83-year-old right-handed woman with PMH of ( hypertension, depression, anxiety, hypothyroidism presented to hospital as a stroke alert due to right-sided arm and face weakness along with aphasia. She was outside the time
window for thrombolytic symptoms. No recent illnesses, no history of TIA or stroke. Not on any antithrombotics from home. CTA of the head neck shows no large vessel occlusion and patient was given aspirin and clopidogrel loading doses and admitted
for stroke work up.MRI of brain shows -a focal nonhemorrhagic acute infarct in the left denson radiata. Carotid ultrasound: 50 to 69% stenosis on the left and less than 50% on the right. Tentatively surgery for symptomatic stenosis is for Tuesday
(09/28/2023)
MRI of Head. Nonhemorrhagic left denson radiata acute infarct.
CT head noncontrast: no acute infarct, no hemorrhage or masses seen
CTA of the head and neck: no large vessel intracranial occlusion. left-sided internal carotid stenosis in the range of 60 to 70%, no dissection seen in the carotids or vertebral arteries.
Carotid ultrasound: 50 to 69% stenosis on the left and less than 50% on the right
Past Medical History: hypertension, depression, anxiety, hypothyroidism
Procedure History: Total hysterectomy
Family History: non contributory
Social History:
Functional Level Premorbidly: Independent with all activities
Functional Level Currently: Transfers�min assist, ambulated 40 feet with rolling walker and min assist,Lower extremity care�max assist, grooming�min assist, toileting�max assist.
Tobacco: Denies
Alcohol: Denies
Drug use: Denies
Lives with: Family
24-hour assistance available:
Number of floors:1 story home - condo
# steps to enter: 12-15
# steps to second floor: 0
Potential First floor set up:yes
Driving: yes
Occupation: retired
�
Allergies:
Allergy/AdvReac Type Severity Reaction Status Date / Time
No Known Allergies Allergy Verified 08/23/23 18:08
Review of Systems:
Constitutional: (x) Normal _
Eye: (x) Normal _
Ear/Nose/Throat: (x) Normal _
Respiratory: (x) Normal _
Cardiovascular: (x) carotid stenosis
Gastrointestinal: (x) Normal _
Genitourinary: (x) Normal _
Musculoskeletal: (x) Normal _
Integumentary: (x) Normal _
Neurologic: (x) CVA, Right leg and arm weakness, facial droop, aphasia
Psychiatric: (x) Normal _
Endocrine: (x) Normal _
Hematologic/Lymphatic: (x) Normal _
Allergic/Immunologic: (x) Normal _
Medications:
Active Current Visit Medication List
Category Date Time Status
Acetaminophen [Tylenol/Feverall] Med 09/25/23 17:17 Active
650 mg RECTAL Q4HPRN PRN
Acetaminophen [Tylenol] Med 09/25/23 17:17 Active
650 mg PO Q4HPRN PRN
Aspirin Chewable [Low Strength Aspirin] Med 09/26/23 08:00 Active
81 mg PO DAILY
CeFAZolin 2 GRAM [Ancef] Med 09/28/23 06:03 Active
2 grams in 10 ml IV PRE PROCEDURE
Chlorhexidine Oral Rinse 0.12% [Peridex 0.12% Oral Med 09/28/23 06:03 Once
Rinse]
15 ml PO ONCE ONE
Citalopram [Celexa] Med 09/26/23 08:00 Active
20 mg PO DAILY
Clopidogrel Bisulfate [Plavix] Med 09/26/23 08:00 Active
75 mg PO DAILY
Flush (0.9% Sodium Chloride) [Flush (Nss)] Med 09/25/23 18:00 Active
See Dose Instructions IV PER PROTOCOL
Levothyroxine [Synthroid] Med 09/26/23 06:00 Active
12.5 mcg PO DAILY @ 0600
Levothyroxine [Synthroid] Med 09/26/23 06:00 Active
50 mcg PO DAILY@0600
Losartan [Cozaar] Med 09/26/23 08:00 Active
100 mg PO DAILY
Metoprolol Xl [Toprol Xl] Med 09/26/23 08:00 Active
25 mg PO DAILY
Mupirocin [Bactroban 2% Ointment] Med 09/28/23 06:03 Once
See Dose Instructions NASAL ONCE ONE
Rosuvastatin Calcium [Crestor] Med 09/25/23 18:00 Active
20 mg PO QPM
Vitals:
Temp Pulse Resp BP Pulse Ox
98.3 F 75 18 159/94 98
09/27/23 08:02 09/27/23 08:02 09/27/23 08:02 09/27/23 08:02 09/27/23 08:02
Height 5 ft 5 in
Actual Weight 60.328 kg
Body Mass Index (BMI) 22.1
Physical Exam:
General Appearance/Observation: Well-developed, well-nourished individual in no apparent distress.
Pain/Comfort Assessment: Denies
Mood/Affect:flat affect
Integumentary/Operative Site:
�� Pressure Ulcer Evaluation: Did not assess
�� Other Type of Wound:
�
Eyes: Conjunctiva/Lids: normal ��� Pupils: pupils equal round
Ears/Nose/Throat: oral mucosa moist,� throat clear.������������ Lips/Teeth/Gums: normal
Neck: No muscle spasm or tenderness
Cardiovascular: Heart: regular, no murmur
Pulses: dorsalis pedis
Respiratory: Respiratory Effort/Chest Expansion: normal ������� Auscultation:
Gastrointestinal: abdomen not tender, no distension,
Genitourinary: No Hubbard
Extremities: Edema: None Cyanosis: None Trophic changes: None
Neurology Exam:
Orientation: Alert, Oriented to self, Not to Time, Place. Patient answered some questions then declined to continue interview or be examined
Memory: Impaired
Higher cortical function
Repetition:
Comprehension: Impaired
Two step command:Impaired
Naming: Impaired
Cranial Nerves:
�� CNII: Pupillary light reflex: �� Visual Field:
�� CN III, IV, : Extraocular muscles: Intact
�� CN V: Facial Sensation Forehead: Maxilla: Mandible: Not able to assess. Patient refuses to be examined
�� CN VII: Facial movement: Symmetric
�� CN VIII: Hearing: Normal
�� CN IX/X: Speech & swallow: dysarthria, hypophonia, aphasia Position of Uvula: Midline
�� CN XI: Shoulder shrug:
�� CN XII: Tongue protrusion:
Sensory:
�� Light touch: Refuses
Reflexes:
�� Biceps:
�� Brachioradialis:
�� Triceps:
�� Patellar:
�� Achilles:
�� Babinski:
�� Clonus:
�� Martir:
Cerebellar:
Musculoskeletal:
Motor
Sensory: Unable to assess. Refuses
Tone:
Range of Motion:
Lab Results
Labs
WBC 9.0 10^3/uL (4.8-10.8) 09/26/23 06:27
RBC 4.59 10^6/uL (4.20-5.40) 09/26/23 06:27
Hgb 13.7 g/dL (12.0-16.0) 09/26/23 06:27
Hct 39.5 % (37.0-47.0) 09/26/23 06:27
MCV 86.1 fL (81.0-99.0) 09/26/23 06:27
MCH 29.8 pg (27.0-31.0) 09/26/23 06:27
MCHC 34.7 g/dL (33.0-37.0) 09/26/23 06:27
RDW 13.2 % (11.5-14.5) 09/26/23 06:27
Plt Count 176 10^3/uL (130-400) 09/26/23 06:27
MPV 9.9 fL (7.4-10.4) 09/26/23 06:27
Abs Immat Gran (auto) 0.0 10^3/uL (0-0.05) 09/25/23 14:44
Absolute Neuts (auto) 6.4 10^3/uL (1.4-6.5) 09/25/23 14:44
Absolute Lymphs (auto) 1.4 10^3/uL (1.2-3.4) 09/25/23 14:44
Absolute Monos (auto) 0.7 10^3/uL (0.1-0.6) H 09/25/23 14:44
Absolute Eos (auto) 0.1 10^3/uL (0-0.7) 09/25/23 14:44
Absolute Basos (auto) 0.1 10^3/uL (0-0.2) 09/25/23 14:44
Immature Gran % 0.3 % (0-0.5) 09/25/23 14:44
Neutrophils % 73.5 % (42.2-75.2) 09/25/23 14:44
Lymphocytes % 16.1 % (20.5-51.1) L 09/25/23 14:44
Monocytes % 8.5 % (1.7-9.3) 09/25/23 14:44
Eosinophils % 0.7 % (0-6) 09/25/23 14:44
Basophils % 0.9 % (0-2) 09/25/23 14:44
Nucleated RBC % 0 % 09/25/23 14:44
PT 13.2 Sec (11.4-14.6) 09/25/23 14:44
INR 1.02 09/25/23 14:44
APTT 29.4 Sec (23.4-35.0) 09/25/23 14:44
Sodium 131 mmol/L (135-145) L 09/25/23 18:00
Potassium 3.7 mmol/L (3.5-5.1) 09/25/23 18:00
Chloride 104 mmol/L (98-107) 09/25/23 18:00
Carbon Dioxide 24 mmol/L (22-30) 09/25/23 18:00
BUN 13 mg/dl (7-17) 09/25/23 18:00
Creatinine 0.7 mg/dL (0.6-1.0) 09/25/23 18:00
Estimated Creat Clear 55 ml/min 09/25/23 18:00
eGFR > 60.00 09/25/23 18:00
Glucose 98 mg/dl (70-99) 09/25/23 18:00
Hemoglobin A1c 5.9 % (4.0-5.6) H 09/26/23 06:27
Calcium 9.2 mg/dl (8.4-10.2) 09/25/23 18:00
Magnesium 2.0 mg/dl (1.6-2.3) 09/26/23 06:27
Ferritin 190.0 ng/ml (11.1-264.0) 09/26/23 06:27
Total Bilirubin 0.7 mg/dl (0.2-1.3) 09/25/23 18:00
AST 33 U/L (14-36) 09/25/23 18:00
ALT 17 U/L (0-35) 09/25/23 18:00
Alkaline Phosphatase 87 U/L (38-126) 09/25/23 18:00
Troponin I < 0.012 ng/ml 09/25/23 14:44
Total Protein 6.3 g/dl (6.3-8.2) 09/25/23 18:00
Albumin 3.8 g/dl (3.5-5.0) 09/25/23 18:00
Triglycerides 131 mg/dl (10-149) 09/26/23 06:27
Total Cholesterol 225 mg/dl (50-199) H 09/26/23 06:27
LDL Cholesterol, Calc 106 mg/dl 09/26/23 06:27
VLDL Cholesterol, Calc 26 mg/dl (0-30) 09/26/23 06:27
HDL Cholesterol 93 mg/dl 09/26/23 06:27
Vitamin B12 472 pg/ml (239-931) 09/26/23 06:27
Folate > 20.0 ng/ml (2.76-20) H 09/26/23 06:27
TSH (Reflex) 2.57 uIU/ml (0.47-4.68) 09/26/23 06:27
POC Glucose 92 mg/dl (70-99) 09/25/23 14:38
Blood Type A POS 09/27/23 04:38
Blood Type Confirm A POS 09/27/23 07:36
Antibody Screen Negative (Negative) 09/27/23 04:38
�
Diagnostic Results: as per HPI
Assessment
83-year-old right-handed woman with PMH of ( hypertension, depression, anxiety, hypothyroidism presented to hospital as a stroke alert due to right-sided arm and face weakness along with aphasia. She was outside the time window for thrombolytic
symptoms.MRI of brain shows -a focal nonhemorrhagic acute infarct in the left denson radiata. Carotid ultrasound: 50 to 69% stenosis on the left and less than 50% on the right. Right carotid endarterectomy scheduled for Tuesday (09/28/2023)
Plan
PT/OT to increase independence with ADLs, improve balance, coordination, endurance, strength, mobility, community reintegration, decreased burden of care on others and family education.
CVA: Continue aspirin and clopidogrel DAPT therapy for 21 days then aspirin 81 mg thereafter. Continue aspirin, statin, and blood pressure control (SBP less than 180 and diastolic less than 100 to participate with therapy for ischemic stroke).
Continue to monitor neurologic status.
right dominant hemiparesis: High risk for falls and sliding out of chair/bed. Safety reinforced.
- Avoid using affected arm to help lift or pull patient as this will cause trauma to the shoulder.
Right Neglect: makes patient at increased risk for falls.� Will need therapy to work on scanning of environment for safe navigation.
Dysphagia: speech evaluation, oral care protocol, chlorhexidine rinse after meals and HS, aspiration precautions.� Advance diet as tolerated.
Dysarthria: speech evaluation
Aphasia: speech evaluation
HTN: , Metoprolol, Losartan 100 mg. monitor closely
HLD: Rosuvastatin
Hypothyroidism: levothyroxine 50mcg and 12.5mg
Psych: Psychology consult.�Celexa 20 mg daily. Monitor mood, adjust medications as needed.
Skin: monitor for pressure sores/rashes/lesions.
Pain: acetaminophen as needed.
Bowel: Colace and Senna, PRN bisacodyl.
Bladder: Time void, PVRs, PRN straight cath.
Alcohol use--patient drinks 1 drink per day--watch for DTs
GI Prophylaxis: Pantoprazole
DVT Prophylaxis: Mechanical.
Pulmonary: Incentive spirometry
Safety: Continue to reinforce assistance with all transfers.
Code Status:� Full code
Dispo (date/plan/equipment needs): Home with family care.� Social history reviewed.
Functional and Medical Goals: Modified Independent with ADL�s, ambulation, transfers
Discharge Destination:Acute inpatient rehabilitation
Summary of recommendations:Patient with right-sided weakness,right -sided inattention, expressive aphasia, dysarthria, carotid stenosis currently functioning at min assist for transfer, max assist for lower extremity dressing, toileting�max assist,
ambulates 40 feet with rolling walker with min assist, would benefit from acute inpatient rehabilitation for PT/OT to increase independence with ADLs, improve balance, coordination, endurance, strength, mobility, community reintegration, decreased
burden of care on others and family education Once Medically stable
CVA: Continue aspirin and clopidogrel DAPT therapy for 21 days then aspirin 81 mg thereafter. Continue aspirin, statin, and blood pressure control (SBP less than 180 and diastolic less than 100 to participate with therapy for ischemic stroke).
Continue to monitor neurologic status.
right dominant hemiparesis: High risk for falls and sliding out of chair/bed. Safety reinforced.
- Avoid using affected arm to help lift or pull patient as this will cause trauma to the shoulder.
Right Neglect: makes patient at increased risk for falls.� Will need therapy to work on scanning of environment for safe navigation.
Dysphagia: speech evaluation, oral care protocol, chlorhexidine rinse after meals and HS, aspiration precautions.� Advance diet as tolerated.
Dysarthria: speech evaluation
Aphasia: speech evaluation
HTN: , Metoprolol, Losartan 100 mg. monitor closely
Skin: monitor for pressure sores/rashes/lesions.
Pain: acetaminophen as needed.
Bowel: Colace and Senna, PRN bisacodyl.
Bladder: Time void, PVRs, PRN straight cath.
Alcohol use--patient drinks 1 drink per day--watch for DTs
GI Prophylaxis: Pantoprazole
DVT Prophylaxis: Mechanical.
Pulmonary: Incentive spirometry
Safety: Continue to reinforce assistance with all transfers.
Will re-evaluate patient after surgery.
Thank you for allowing me to care for your patient. Please contact me with any questions or concerns.
This note was dictated using a voice recognition system. Please excuse any typographical errors from [email or web address]. If you believe there are any discrepancies, please notify our office.

Documented by User: Herb Hudson MD 09/27/23 17:43
Consultation - Medical
-
Referring Provider:
Chief Complaint: CVA with right sided weakness and aphasia
History of Present Illness: 83-year-old right-handed woman with PMH of ( hypertension, depression, anxiety, hypothyroidism presented to hospital as a stroke alert due to right-sided arm and face weakness along with aphasia. She was outside the time
window for thrombolytic symptoms. No recent illnesses, no history of TIA or stroke. Not on any antithrombotics from home. CTA of the head neck shows no large vessel occlusion and patient was given aspirin and clopidogrel loading doses and admitted
for stroke work up.MRI of brain shows -a focal nonhemorrhagic acute infarct in the left denson radiata. Carotid ultrasound: 50 to 69% stenosis on the left and less than 50% on the right. Tentatively surgery for symptomatic stenosis is for Tuesday
(09/28/2023)
MRI of Head. Nonhemorrhagic left denson radiata acute infarct.
CT head noncontrast: no acute infarct, no hemorrhage or masses seen
CTA of the head and neck: no large vessel intracranial occlusion. left-sided internal carotid stenosis in the range of 60 to 70%, no dissection seen in the carotids or vertebral arteries.
Carotid ultrasound: 50 to 69% stenosis on the left and less than 50% on the right
Patient seen by me (Dr. Hudson) today on 09/26 at bedside. at bedside as well. Patient denies any pain or headache or dizziness. No other chest pain or SOB, no GI complaints. Denies any numbness or paresthesias in the upper or lower
limbs.
Past Medical History: hypertension, depression, anxiety, hypothyroidism
Procedure History: Total hysterectomy
Family History: non contributory
Social History:
Functional Level Premorbidly: Independent with all activities
Functional Level Currently: Transfers�min assist, ambulated 40 feet with rolling walker and min assist,Lower extremity care�max assist, grooming�min assist, toileting�max assist.
Tobacco: Denies
Alcohol: Denies
Drug use: Denies
Lives with: Family
24-hour assistance available:
Number of floors:1 story home - condo
# steps to enter: 12-15
# steps to second floor: 0
Potential First floor set up:yes
Driving: yes
Occupation: retired
�
Allergies:
Allergy/AdvReac Type Severity Reaction Status Date / Time
No Known Allergies Allergy Verified 08/23/23 18:08
Review of Systems:
Constitutional: (x) Normal _
Eye: (x) Normal _
Ear/Nose/Throat: (x) Normal _
Respiratory: (x) Normal _
Cardiovascular: (x) carotid stenosis
Gastrointestinal: (x) Normal _
Genitourinary: (x) Normal _
Musculoskeletal: (x) Normal _
Integumentary: (x) Normal _
Neurologic: (x) CVA, Right leg and arm weakness, facial droop, aphasia
Psychiatric: (x) Normal _
Endocrine: (x) Normal _
Hematologic/Lymphatic: (x) Normal _
Allergic/Immunologic: (x) Normal _
Medications:
Active Current Visit Medication List
Category Date Time Status
Acetaminophen [Tylenol/Feverall] Med 09/25/23 17:17 Active
650 mg RECTAL Q4HPRN PRN
Acetaminophen [Tylenol] Med 09/25/23 17:17 Active
650 mg PO Q4HPRN PRN
Aspirin Chewable [Low Strength Aspirin] Med 09/26/23 08:00 Active
81 mg PO DAILY
CeFAZolin 2 GRAM [Ancef] Med 09/28/23 06:03 Active
2 grams in 10 ml IV PRE PROCEDURE
Chlorhexidine Oral Rinse 0.12% [Peridex 0.12% Oral Med 09/28/23 06:03 Once
Rinse]
15 ml PO ONCE ONE
Citalopram [Celexa] Med 09/26/23 08:00 Active
20 mg PO DAILY
Clopidogrel Bisulfate [Plavix] Med 09/26/23 08:00 Active
75 mg PO DAILY
Flush (0.9% Sodium Chloride) [Flush (Nss)] Med 09/25/23 18:00 Active
See Dose Instructions IV PER PROTOCOL
Levothyroxine [Synthroid] Med 09/26/23 06:00 Active
12.5 mcg PO DAILY @ 0600
Levothyroxine [Synthroid] Med 09/26/23 06:00 Active
50 mcg PO DAILY@0600
Losartan [Cozaar] Med 09/26/23 08:00 Active
100 mg PO DAILY
Metoprolol Xl [Toprol Xl] Med 09/26/23 08:00 Active
25 mg PO DAILY
Mupirocin [Bactroban 2% Ointment] Med 09/28/23 06:03 Once
See Dose Instructions NASAL ONCE ONE
Rosuvastatin Calcium [Crestor] Med 09/25/23 18:00 Active
20 mg PO QPM
Vitals:
Temp Pulse Resp BP Pulse Ox
98.3 F 75 18 159/94 98
09/27/23 08:02 09/27/23 08:02 09/27/23 08:02 09/27/23 08:02 09/27/23 08:02
Height 5 ft 5 in
Actual Weight 60.328 kg
Body Mass Index (BMI) 22.1
Physical Exam:
General Appearance/Observation: Well-developed, well-nourished individual in no apparent distress.
Pain/Comfort Assessment: Denies
Mood/Affect:flat affect
Integumentary/Operative Site:
�� Pressure Ulcer Evaluation: Did not assess
�� Other Type of Wound:
�
Eyes: Conjunctiva/Lids: normal ��� Pupils: pupils equal round
Ears/Nose/Throat: oral mucosa moist,� throat clear.������������ Lips/Teeth/Gums: normal
Neck: No muscle spasm or tenderness
Cardiovascular: Heart: regular, no murmur
Pulses: dorsalis pedis
Respiratory: Respiratory Effort/Chest Expansion: normal ������� Auscultation:
Gastrointestinal: abdomen not tender, no distension,
Genitourinary: No Hubbard
Extremities: Edema: None Cyanosis: None Trophic changes: None
Neurology Exam:
Orientation: Alert, Oriented to self, Not to Time, Place. Patient answered some questions then declined to continue interview or be examined
Memory: Impaired
Higher cortical function
Repetition:
Comprehension: Impaired
Two step command:Impaired
Naming: Impaired
Cranial Nerves:
�
�� CN III, IV, : Extraocular muscles: decreased right attention and tracking
�� CN V: Facial Sensation Forehead: intact
�� CN VII: Facial movement: R sided facial weakness, droop
�� CN VIII: Hearing: some hard of hearing
�� CN IX/X: Speech & swallow: dysarthria, hypophonia, aphasia Position of Uvula: Midline
�� CN XI: Shoulder shrug:
�� CN XII: Tongue protrusion:
Sensory:
�� Light touch: intact to light touch hands and feet
Reflexes:
�� Biceps: 1+
�� Achilles: 1+
�� Babinski: negative
�� Clonus: negative
�� Martir: negaitve
Cerebellar: Negative pronator drift, but difficulty with rapid alternating movements right and with finger nose finger on the right
Musculoskeletal:
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 4/5 bilateral hip flexor, but 5/5 lower limbs elsewhere.
Tone: none
Range of Motion: mild shoulder limitation bilateral.
Lab Results
Labs
WBC 9.0 10^3/uL (4.8-10.8) 09/26/23 06:27
RBC 4.59 10^6/uL (4.20-5.40) 09/26/23 06:27
Hgb 13.7 g/dL (12.0-16.0) 09/26/23 06:27
Hct 39.5 % (37.0-47.0) 09/26/23 06:27
MCV 86.1 fL (81.0-99.0) 09/26/23 06:27
MCH 29.8 pg (27.0-31.0) 09/26/23 06:27
MCHC 34.7 g/dL (33.0-37.0) 09/26/23 06:27
RDW 13.2 % (11.5-14.5) 09/26/23 06:27
Plt Count 176 10^3/uL (130-400) 09/26/23 06:27
MPV 9.9 fL (7.4-10.4) 09/26/23 06:27
Abs Immat Gran (auto) 0.0 10^3/uL (0-0.05) 09/25/23 14:44
Absolute Neuts (auto) 6.4 10^3/uL (1.4-6.5) 09/25/23 14:44
Absolute Lymphs (auto) 1.4 10^3/uL (1.2-3.4) 09/25/23 14:44
Absolute Monos (auto) 0.7 10^3/uL (0.1-0.6) H 09/25/23 14:44
Absolute Eos (auto) 0.1 10^3/uL (0-0.7) 09/25/23 14:44
Absolute Basos (auto) 0.1 10^3/uL (0-0.2) 09/25/23 14:44
Immature Gran % 0.3 % (0-0.5) 09/25/23 14:44
Neutrophils % 73.5 % (42.2-75.2) 09/25/23 14:44
Lymphocytes % 16.1 % (20.5-51.1) L 09/25/23 14:44
Monocytes % 8.5 % (1.7-9.3) 09/25/23 14:44
Eosinophils % 0.7 % (0-6) 09/25/23 14:44
Basophils % 0.9 % (0-2) 09/25/23 14:44
Nucleated RBC % 0 % 09/25/23 14:44
PT 13.2 Sec (11.4-14.6) 09/25/23 14:44
INR 1.02 09/25/23 14:44
APTT 29.4 Sec (23.4-35.0) 09/25/23 14:44
Sodium 131 mmol/L (135-145) L 09/25/23 18:00
Potassium 3.7 mmol/L (3.5-5.1) 09/25/23 18:00
Chloride 104 mmol/L (98-107) 09/25/23 18:00
Carbon Dioxide 24 mmol/L (22-30) 09/25/23 18:00
BUN 13 mg/dl (7-17) 09/25/23 18:00
Creatinine 0.7 mg/dL (0.6-1.0) 09/25/23 18:00
Estimated Creat Clear 55 ml/min 09/25/23 18:00
eGFR > 60.00 09/25/23 18:00
Glucose 98 mg/dl (70-99) 09/25/23 18:00
Hemoglobin A1c 5.9 % (4.0-5.6) H 09/26/23 06:27
Calcium 9.2 mg/dl (8.4-10.2) 09/25/23 18:00
Magnesium 2.0 mg/dl (1.6-2.3) 09/26/23 06:27
Ferritin 190.0 ng/ml (11.1-264.0) 09/26/23 06:27
Total Bilirubin 0.7 mg/dl (0.2-1.3) 09/25/23 18:00
AST 33 U/L (14-36) 09/25/23 18:00
ALT 17 U/L (0-35) 09/25/23 18:00
Alkaline Phosphatase 87 U/L (38-126) 09/25/23 18:00
Troponin I < 0.012 ng/ml 09/25/23 14:44
Total Protein 6.3 g/dl (6.3-8.2) 09/25/23 18:00
Albumin 3.8 g/dl (3.5-5.0) 09/25/23 18:00
Triglycerides 131 mg/dl (10-149) 09/26/23 06:27
Total Cholesterol 225 mg/dl (50-199) H 09/26/23 06:27
LDL Cholesterol, Calc 106 mg/dl 09/26/23 06:27
VLDL Cholesterol, Calc 26 mg/dl (0-30) 09/26/23 06:27
HDL Cholesterol 93 mg/dl 09/26/23 06:27
Vitamin B12 472 pg/ml (239-931) 09/26/23 06:27
Folate > 20.0 ng/ml (2.76-20) H 09/26/23 06:27
TSH (Reflex) 2.57 uIU/ml (0.47-4.68) 09/26/23 06:27
POC Glucose 92 mg/dl (70-99) 09/25/23 14:38
Blood Type A POS 09/27/23 04:38
Blood Type Confirm A POS 09/27/23 07:36
Antibody Screen Negative (Negative) 09/27/23 04:38
�
Diagnostic Results: as per HPI
Assessment
83-year-old right-handed woman with PMH of ( hypertension, depression, anxiety, hypothyroidism presented to hospital as a stroke alert due to right-sided arm and face weakness along with aphasia. She was outside the time window for thrombolytic
symptoms.MRI of brain shows -a focal nonhemorrhagic acute infarct in the left denson radiata. Carotid ultrasound: 50 to 69% stenosis on the left and less than 50% on the right. Right carotid endarterectomy scheduled for Tuesday (09/28/2023)
Plan
PT/OT to increase independence with ADLs, improve balance, coordination, endurance, strength, mobility, community reintegration, decreased burden of care on others and family education.
CVA: Continue aspirin and clopidogrel DAPT therapy for 21 days then aspirin 81 mg thereafter. Continue aspirin, statin, and blood pressure control (SBP less than 180 and diastolic less than 100 to participate with therapy for ischemic stroke).
Continue to monitor neurologic status.
right dominant hemiparesis, apraxia: High risk for falls and sliding out of chair/bed. Safety reinforced.
- Avoid using affected arm to help lift or pull patient as this will cause trauma to the shoulder.
Right Neglect: makes patient at increased risk for falls.� Will need therapy to work on scanning of environment for safe navigation.
Dysphagia: speech evaluation, oral care protocol, chlorhexidine rinse after meals and HS, aspiration precautions.� Advance diet as tolerated.
Dysarthria: speech evaluation
Aphasia: speech evaluation
HTN: , Metoprolol, Losartan 100 mg. monitor closely
HLD: Rosuvastatin
Hypothyroidism: levothyroxine 50mcg and 12.5mg
Psych: Psychology consult.�Celexa 20 mg daily. Monitor mood, adjust medications as needed.
Skin: monitor for pressure sores/rashes/lesions.
Pain: acetaminophen as needed.
Bowel: Colace and Senna, PRN bisacodyl.
Bladder: Time void, PVRs, PRN straight cath.
Alcohol use--patient drinks 1 drink per day--watch for DTs
GI Prophylaxis: Pantoprazole
DVT Prophylaxis: Mechanical.
Pulmonary: Incentive spirometry
Safety: Continue to reinforce assistance with all transfers.
Code Status:� Full code
Dispo (date/plan/equipment needs): Home with family care.� Social history reviewed.
Functional and Medical Goals: Modified Independent with ADL�s, ambulation, transfers
Discharge Destination:Acute inpatient rehabilitation
Summary of recommendations:Patient with right-sided weakness,right -sided inattention, expressive aphasia, dysarthria, carotid stenosis currently functioning at min assist for transfer, max assist for lower extremity dressing, toileting�max assist,
ambulates 40 feet with rolling walker with min assist, would benefit from acute inpatient rehabilitation for PT/OT to increase independence with ADLs, improve balance, coordination, endurance, strength, mobility, community reintegration, decreased
burden of care on others and family education Once Medically stable
CVA: Continue aspirin and clopidogrel DAPT therapy for 21 days then aspirin 81 mg thereafter. Continue aspirin, statin, and blood pressure control (SBP less than 180 and diastolic less than 100 to participate with therapy for ischemic stroke).
Continue to monitor neurologic status.
right dominant hemiparesis: High risk for falls and sliding out of chair/bed. Safety reinforced.
- Avoid using affected arm to help lift or pull patient as this will cause trauma to the shoulder.
Right Neglect: makes patient at increased risk for falls.� Will need therapy to work on scanning of environment for safe navigation.
Dysphagia: speech evaluation, oral care protocol, chlorhexidine rinse after meals and HS, aspiration precautions.� Advance diet as tolerated.
Dysarthria: speech evaluation
Aphasia: speech evaluation
HTN: , Metoprolol, Losartan 100 mg. monitor closely
Skin: monitor for pressure sores/rashes/lesions.
Pain: acetaminophen as needed.
Bowel: Colace and Senna, PRN bisacodyl.
Bladder: Time void, PVRs, PRN straight cath.
Alcohol use--patient drinks 1 drink per day--watch for DTs
GI Prophylaxis: Pantoprazole
DVT Prophylaxis: Mechanical.
Pulmonary: Incentive spirometry
Safety: Continue to reinforce assistance with all transfers.
Will re-evaluate patient after surgery later this week to assess stability and continued appropriateness for acute rehabilitation.
Thank you for allowing me to care for your patient. Please contact me with any questions or concerns.
This note was dictated using a voice recognition system. Please excuse any typographical errors from meringuer. If you believe there are any discrepancies, please notify our office.
[2023-09-26 19:00] VITALS: BP 144/96
[2023-09-26 23:00] VITALS: BP 137/85
[2023-09-27] VITALS (7 sets, daily range): BP systolic 127–162; BP diastolic 61–94; PULSE 71; O2SAT 98
--- NOTE | 2023-09-27 05:32 | PTCARENOTE ---
20:00 [facility] [place] 9. 09/24 first NIH 6. Notified SHELL Willett and On-call Neurology. No new orders placed at this time. Plan of care ongoing.
[2023-09-27] MEDS: SYNTHROID 12.5 MCG PO (06:19)
[2023-09-27] MEDS: SYNTHROID 50 MCG PO (06:19)
--- NOTE | 2023-09-27 07:34 | PTCARENOTE ---
04:00 pt arousable and drowsy. neuro check unchanged. This RN asked pt to repeat themselves multiples times due to slurred speech but can't understand. Pt's slurred speech was understandable prior to 04:00 neuro check. NIH completed. Pt answered
month and age. This RN asked pt to repeat themselves 2 times to understand pt's answer. Pt answered month correct. Pt stopped answering any questions verbally after answering month and age. Pt followed verbal instructions. Notified On-call
Neurology. Per neurology, continue to monitor. Plan of care ongoing.
06:19 pt arousable and answering pt identifiers (name and ) to administer medications. Slurred speech but can understand. Notified On-call Neurology. Plan of care ongoing.
--- NOTE | 2023-09-27 08:47 | W.PN.NEURO.1 ---
Today's Communication / Plan
-
Recommendations
-Pursue goal normotension would aim for systolic blood pressure less than 180
-Neurologic checks and NIH stroke scale
-Monitor on cardiac telemetry and check transthoracic echocardiogram
-Continue aspirin and clopidogrel DAPT therapy for 21 days then aspirin 81 mg thereafter
-Continue rosuvastatin 20 mg daily
Neuro Assessment/Plan
Assessment
Assessment: High degree of suspicion for symptomatic left carotid stenosis given right face arm and leg weakness along with aphasia leading to left MCA territory infarct.
Plan
Recommendations
-Pursue goal normotension would aim for systolic blood pressure less than 180
-Neurologic checks and NIH stroke scale
-Monitor on cardiac telemetry and check transthoracic echocardiogram
-Continue aspirin and clopidogrel DAPT therapy for 21 days then aspirin 81 mg thereafter
-Continue rosuvastatin 20 mg daily
We will follow as needed
Subjective/Objective
Subjective Data
Date of Service: September 27, 2023
Speech difficulty last night. Continued word finding issues.
Objective Data
Vital Signs
Temp Pulse Resp BP Pulse Ox
36.8 C 75 18 159/94 98
09/27/23 08:02 09/27/23 08:02 09/27/23 08:02 09/27/23 08:02 09/27/23 08:02
Lab Results
09/26/23 06:27
09/25/23 18:00
PT 13.2 Sec (11.4-14.6) 09/25/23 14:44
INR 1.02 09/25/23 14:44
APTT 29.4 Sec (23.4-35.0) 09/25/23 14:44
Sodium 131 mmol/L (135-145) L 09/25/23 18:00
Potassium 3.7 mmol/L (3.5-5.1) 09/25/23 18:00
BUN 13 mg/dl (7-17) 09/25/23 18:00
Glucose 98 mg/dl (70-99) 09/25/23 18:00
Calcium 9.2 mg/dl (8.4-10.2) 09/25/23 18:00
LDL Cholesterol, Calc 106 mg/dl 09/26/23 06:27
Vitamin B12 472 pg/ml (239-931) 09/26/23 06:27
Patient Allergies
No Known Allergies Allergy (Verified 08/23/23 18:08)
Review of Systems
-
Unable to obtain full review of systems at this time due to: Aphasia
History Source: Patient
All other systems: Reviewed and negative
Musculoskeletal: Negative Back Pain or Neck Pain
Neuro: Negative Dizzy or Headache
Physical Exam
-
General: No Apparent Distress and Appears Stated Age
Eyes: Round OU, [place] Conjunctivae and No Ptosis
HEENT: Anicteric and Moist Mucous Membranes
Neck: Full Range of Motion
Respiratory: No Dyspnea
Cardiac: No JVD
GI: Non-distended
Skin: Unremarkable
Extremities: No Clubbing, No Cyanosis and No Edema
Psych: Intact Judgement/Insight
Extended Neurological Exam
Mood & Affect: Mood Unremarkable and Affect Unremarkable
Attention Span & Concentration: Awake, Alert and Interactive
Memory: Reduced (For events overnight)
Tremor: Hand Tremor Absent and Head Tremor Absent
Speech: Quality Unremarkable and Mildly Reduced Output
Cranial Nerve II: Left Eye: Pupillary Size Unremarkable and Visual Johnson Grossly Intact
Cranial Nerve II: Right Eye: Pupillary Size Unremarkable and Visual Johnson Grossly Intact
Cranial Nerves III, IV, : Extraocular Movement: Grossly Intact
Cranial Nerve VII: Facial Symmetry: Reduced (Right)
Cranial Nerve VIII: Hearing: Unremarkable Hearing to Normal Conversational Volume
Muscle Strength, Overall: Spontaneously Moves
Muscle Bulk & Tone: Bulk Unremarkable and Tone Unremarkable
Pronator Drift: Drift in Right Upper Extremity; Negative Drift in Left Upper Extremity
Coordination: [id number] Testing Unremarkable
Data Reviewed
-
MRI Head: Report Reviewed
Labs: Report Reviewed
Reviewed with: Physician, Nurse Practioner and Patient
Old Records: Summarized
Past History
Past History
ED Past Medical History: CVA, HTN, Hypothyroidism, Psychiatric (Major depression) and Other (left internal carotid stenosis)
Social History
Tobacco: Non-smoker
Personal:
Living: with family
Employment: Retired
Family History
Family History: Other (Reviewed and noncontributory)
Medications
-
Medications:
Generic Name Dose Route Start Last Admin
Trade Name Freq PRN Reason Stop Dose Admin
Acetaminophen 650 mg 09/25/23 17:17
Acetaminophen 650 Mg Rectal Suppository RECTAL 10/23/23 17:16
Q4HPRN PRN
JOSEPH, mild pain, or temp >100.4F
Acetaminophen 650 mg 09/25/23 17:17
Acetaminophen 325 Mg Tablet PO 10/23/23 17:16
Q4HPRN PRN
JOSEPH, mild pain, or temp >100.4F
Aspirin 81 mg 09/26/23 08:00 09/26/23 09:28
Aspirin 81 Mg Chewable Tablet PO 10/24/23 07:59 81 mg
DAILY LUDMILA Administration
Chlorhexidine Gluconate 15 ml 09/28/23 06:03
Chlorhexidine Oral Rinse 0.12% 15 Ml Cup PO 09/28/23 06:04
ONCE ONE
Citalopram Hydrobromide 20 mg 09/26/23 08:00 09/26/23 09:28
Citalopram 20 Mg Tablet PO 10/24/23 07:59 20 mg
DAILY LUDMILA Administration
Clopidogrel Bisulfate 75 mg 09/26/23 08:00 09/26/23 09:28
Clopidogrel 75 Mg Tablet PO 10/24/23 07:59 75 mg
DAILY LUDMILA Administration
Cefazolin Sodium 2 grams in 10 mls @ 120 mls/hr 09/28/23 06:03
Ancef IV 09/28/23 06:07
PRE PROCEDURE ONE
Levothyroxine Sodium 50 mcg 09/26/23 06:00 09/27/23 06:19
Levothyroxine 50 Mcg Tablet PO 10/24/23 05:59 50 mcg
DAILY@0600 LUDMILA Administration
Levothyroxine Sodium 12.5 mcg 09/26/23 06:00 09/27/23 06:19
Levothyroxine 25 Mcg Tablet PO 10/24/23 05:59 12.5 mcg
DAILY @ 0600 LUDMILA Administration
Losartan Potassium 100 mg 09/26/23 08:00 09/26/23 09:28
Losartan 100 Mg Tablet PO 10/24/23 07:59 100 mg
DAILY LUDMILA Administration
Metoprolol Succinate 25 mg 09/26/23 08:00 09/26/23 09:28
Metoprolol 25 Mg Extended Release Tablet PO 10/24/23 07:59 25 mg
DAILY LUDMILA Administration
Mupirocin 0 applic 09/28/23 06:03
Mupirocin 2% (Ointment) 22 Gram Tube NASAL 09/28/23 06:04
ONCE ONE
Rosuvastatin Calcium 20 mg 09/25/23 18:00 09/26/23 16:33
Rosuvastatin (Crestor) 20 Mg Tablet PO 10/23/23 17:59 20 mg
QPM LUDMILA Administration
Sodium Chloride 0 flush 09/25/23 18:00
Sodium Chloride 0.9% (Flush) Syringe IV 10/23/23 17:59
PER PROTOCOL LUDMILA
[2023-09-27] MEDS: TOPROL XL 25 MG PO (09:04)
[2023-09-27] MEDS: CELEXA 20 MG PO (09:04)
[2023-09-27] MEDS: PLAVIX 75 MG PO (09:05)
[2023-09-27] MEDS: LOW STRENGTH ASPIRIN 81 MG PO (09:05)
[2023-09-27] MEDS: COZAAR 100 MG PO (09:05)
--- NOTE | 2023-09-27 10:54 | PTOTSP ---
Speech Therapy Assessment
Patient presents with a moderate expressive greater than receptive language impairment characterized by sound distortions and paraphasias and dysfluency with increased length and complexity of utterances. Breakdown of receptive language noted with
complex yes/no question. Patient also presents with a moderate dysarthria. Oral/pharyngeal swallow deemed wfl.
Recommend
1. Maintain current diet of regular solids and thin liquids
2. Follow up speech therapy with comprehensive testing of all areas of language in next level of care.
3. Resume speech orders after planned endarterectomy 09/27.
--- NOTE | 2023-09-27 11:24 | W.PN.HOSP.TC ---
Today's Communication/Plan
-
For carotid endarterectomy in a.m.
N.p.o. after midnight
Continue dual antiplatelet therapy and statin
Present BPs acceptable on losartan and metoprolol
Assessment / Plan
Assessment / Plan
Patient is an 83-year-old female who history has been obtained through her . Patient said she could not move her right leg earlier today approximately 7:30 in the morning so her gave her 2 Tylenol and Job wrap to the leg and she does
have chronic issues with that. She was doing okay and had no issues swallowing to Tylenol that he gave her and he put her or kept her in bed. Around 1130 he went upstairs and found her on the floor in the bathroom. He stated that she was sitting
on her but trying to scoot out from the bathroom. He he said she told him that she had trouble getting up from the toilet. He noticed a facial droop at that time. EMS was called and the patient was brought to the emergency room.
Patient is an 83-year-old female
Acute CVA--given her right facial droop and complaints of right leg trouble along with a 70% left proximal internal carotid artery stenosis, this is likely an acute stroke-
-also noted on carotid ultrasound
-ADMIT to tele-
-consult neurology--continue aspirin and Plavix--start 20 mg Crestor(describes prior statin induced myalgias)--check lipids-
-check MRI-focal nonhemorrhagic acute infarct in the left denson radiata.
-consult PT/OT/speech
-Consult placed to vascular surgery/based on symptomatic left internal carotid stenosis and left-sided infarct will undergo CEA on September 27
-Also placed consult for PMNR
Hypothyroidism--continue 62.5 mg of Synthroid--check TSH
Essential hypertension-- states blood pressure usually runs 120s over 70s or 80s--continue losartan and metoprolol to/now past. Of permissive hypertension--keep systolic blood pressure less than 180/
Depression/anxiety--continue Celexa
Alcohol use--patient drinks 1 drink per day--watch for DTs
DVT prophylaxis--sequential teds
CODE STATUS--full code
Anticipated Discharge: 24 - 48 hours
Subjective/Interval History
-
Date of Service: September 27, 2023
Patient little emotionally labile this morning some persisting drift in her right arm and nasolabial droop no respiratory issues
Objective Data
-
Vital Signs:
Vital Signs
Temp Pulse Resp BP Pulse Ox
98.3 F 75 18 159/94 98
09/27/23 08:02 09/27/23 08:02 09/27/23 08:02 09/27/23 08:02 09/27/23 08:02
I&O
09/26/23 09/27/23 09/28/23
06:59 06:59 06:59
Intake Total 100 / 100
Balance 100 / 100
Review of Systems
-
History Source: Patient
EENT: Reports No Symptoms Reported
Respiratory: Reports No Symptoms
Cardiac: Reports No Symptoms
Physical Exam
-
General: Well Developed
HEENT: Normocephalic
Respiratory: Clear to Auscultation
Cardiac: Regular Rhythm
GI: Soft
Neuro: Awake, Alert, AO x 3, Slurred Speech and Facial Droop; Negative No Motor Deficits
Psych: Calm
Data Reviewed
-
Total Time Spent with Patient (in minutes): 56
CT Scan: Report Reviewed by me
Ultrasound: Report Reviewed by me
MRI: Report Reviewed by me
Medical Tests (Nuc Med, Echo etc): Report Reviewed by me
Labs: Labs Reviewed by me
[2023-09-27] MEDS: CRESTOR 20 MG PO (17:24)
[2023-09-28] VITALS (14 sets, daily range): BP systolic 115–167; BP diastolic 63–95; BMI 22.1
[2023-09-28] MEDS: SYNTHROID 50 MCG PO (05:54)
[2023-09-28] MEDS: SYNTHROID 12.5 MCG PO (05:54)
--- NOTE | 2023-09-28 08:45 | PTOTSP ---
Pt going to OR for CEA. Will hold PT. She will need new orders for PT and OT post-op, when stable to resume activity.
[2023-09-28] MEDS: BACTROBAN 2% OINTMENT 1 APPLIC NASAL (08:50)
[2023-09-28] MEDS: PERIDEX 0.12% ORAL RINSE 15 ML PO (10:08)
--- NOTE | 2023-09-28 10:29 | W.PN.HOSP.TC ---
Today's Communication/Plan
-
For CEA this morning
Will be transferred to ICU for postop management and vascular follow-up
Continue to monitor neurochecks
Continue dual antiplatelet therapy/statin watch for prior history of myalgias on statins
BP is stabilized continue losartan and metoprolol
Assessment / Plan
Assessment / Plan
Patient is an 83-year-old female who history has been obtained through her . Patient said she could not move her right leg earlier today approximately 7:30 in the morning so her gave her 2 Tylenol and Job wrap to the leg and she does
have chronic issues with that. She was doing okay and had no issues swallowing to Tylenol that he gave her and he put her or kept her in bed. Around 1130 he went upstairs and found her on the floor in the bathroom. He stated that she was sitting
on her but trying to scoot out from the bathroom. He he said she told him that she had trouble getting up from the toilet. He noticed a facial droop at that time. EMS was called and the patient was brought to the emergency room.
Patient is an 83-year-old female
Acute CVA--given her right facial droop and complaints of right leg trouble along with a 70% left proximal internal carotid artery stenosis, this is likely an acute stroke-
-also noted on carotid ultrasound
-ADMIT to tele-
-consult neurology--continue aspirin and Plavix--start 20 mg Crestor(describes prior statin induced myalgias)--check lipids-
-check MRI-focal nonhemorrhagic acute infarct in the left denson radiata.
-consult PT/OT/speech
-Consult placed to vascular surgery/based on symptomatic left internal carotid stenosis and left-sided infarct will undergo CEA on Tuesday, September 27
-Also placed consult for PMNR/candidate for acute inpatient rehab but will be reevaluated after carotid surgery
Hypothyroidism--continue 62.5 mg of Synthroid--check TSH
Essential hypertension-- states blood pressure usually runs 120s over 70s or 80s--continue losartan and metoprolol to/now past. Of permissive hypertension--keep systolic blood pressure less than 180/
Depression/anxiety--continue Celexa
Alcohol use--patient drinks 1 drink per day--watch for DTs
DVT prophylaxis--sequential teds
CODE STATUS--full code
Anticipated Discharge: 24 - 48 hours
Subjective/Interval History
-
Date of Service: September 28, 2023
Patient was somewhat somnolent on morning rounds and overnight continues to exhibit expressive and receptive aphasia continued slurred speech but intelligible
Objective Data
-
Vital Signs:
Vital Signs
Temp Pulse Resp BP Pulse Ox
98.2 F 61 16 160/84 100
09/28/23 09:23 09/28/23 09:23 09/28/23 09:23 09/28/23 09:23 09/28/23 09:23
I&O
09/27/23 09/28/23 09/29/23
06:59 06:59 06:59
Intake Total 100 / 100
Balance 100 / 100
Review of Systems
-
Constitutional: Reports Fatigue and Weakness
Respiratory: Reports No Symptoms
Cardiac: Reports No Symptoms
Abdomen/GI: Reports No Symptoms
Neuro: Reports Weakness
Physical Exam
-
General: No Apparent Distress
HEENT: Normocephalic
Respiratory: Clear to Auscultation
Cardiac: Regular Rhythm
Neuro: Awake and Other (Side right arm drift/ongoing receptive and expressive aphasia/right-sided neglect)
Psych: Calm and Confused
Data Reviewed
-
Total Time Spent with Patient (in minutes): 56
Labs: Labs Reviewed by me
--- NOTE | 2023-09-28 10:49 | W.SUR.PREOP ---
Pre-Operative Surgical Note
-
I have examined this patient prior to the performance of the scheduled procedure.
The patient's condition is unchanged from the time of the current History and
Physical and the patient is able to undergo the scheduled procedure.
--- NOTE | 2023-09-28 10:52 | PTCARENOTE ---
Received patient this am, awake and alert. Family in to visit. Report called to cardiac services .
--- NOTE | 2023-09-28 12:34 | CM ---
gravity manager reviewed patient's chart and plan is for [facility] when stable, patient will PM&R evaluation. Patient for possible CEA today.
Plan; [facility].
--- NOTE | 2023-09-28 13:11 | W.SUR.POST ---
Surgical Immediate Post Op
Note
Pre Op Diagnosis: carotid stenosis
Post Op Diagnosis: carotid stenosis
Procedure Performed: Left carotid endarterectomy with bovine pericardial patch angioplasty and eeg monitoring
Primary Surgeon: Abdifatah
Assist: Jonathan GOFF
Anesthesia: general
Estimated Blood Loss: 200cc
Fluids: see anesthesia flow sheet
Drains/Shunts: none
Specimens/Cultures: carotid plaque
Doppler/Duplex/Angio (Y/N): Y
Complications: none
Operative Findings: woke from anesthesia and transferred to pacu
--- NOTE | 2023-09-28 13:13 | W.PV.INTER ---
VPI Note
Pre Admission Note
Functional Status: Assisted Care
Ambulation: Ambulate with Assistance
Pre Op Medications
Pre Op ASA: Yes
Pre Op Statin: Yes
Pre Op REBECCA Inhibitor/ARB: Yes
Pre Op P2y12 Antagonist: None
Pre Op Beta Blockers: Chronic > 30 Days
Pre Op Chronic Anticoagulant: None
Pre Op Cilostazol: No
Post Op Medications
Post Op ASA: Yes
Post Op Statin: Yes
Post Op REBECCA Inhibitor/ARB: Yes
Post Op P2y12 Antagonist: Clopidogrel
Post Op Beta Blockers: Chronic > 30 Days
Post Op Chronic Anticoagulant: None
Post Op Cilostazol: No
Modified [place]
Pre Op: 4
Post Op: 4
--- NOTE | 2023-09-28 14:25 | OR.RPT ---
Operative Report
Operative Report
PROCEDURE DATE: 09/28/2023
Preoperative diagnosis: Symptomatic critical left carotid artery stenosis.
Postoperative diagnosis: Same
Procedure: Left carotid endarterectomy with bovine pericardial patch angioplasty and intraoperative EEG/SSEP monitoring.
Surgeon: Abdifatah
Compensation Analyst: Elma Castillo, SIGN WRITER HAND required for all aspects of procedure including traction/countertraction, assistance with following suture line, assistance with closure.
Complications: None
Anesthesia: General
Indications for procedure:
Symptomatic left carotid stenosis with recent stroke. Risk/benefits/alternatives of revascularization with carotid endarterectomy were all extensively discussed with the patient/family/neurology team. All were in agreement with proceeding with
revascularization. Timing was discussed with neurology and they felt appropriate.
Description of procedure:
Patient was identified brought to the operating room placed on the table in supine position. After the adequate administration of anesthesia and perioperative antibiotics she was prepped and draped in the standard surgical fashion. A standard
preoperative timeout was undertaken and everybody was in agreement the plan. A standard longitudinal incision was made in the left neck that was carried through the skin subcutaneous tissue. Using the electrocautery dissection was carried through
the platysma muscle layer and then alongside the anterior medial border of the sternocleidomastoid muscle. Then using a combination of sharp dissection with the Metzenbaum scissors and electrocautery I dissected along the anterior medial border of
the internal jugular vein. The common facial vein branch was ligated between silk ties and then divided. I then deepened my retraction. The common carotid artery was identified and carefully dissected away from the surrounding structures take
great care to avoid any injury to the structures. A vessel loop was passed around it which was double looped, but not yet tightened. Note the vagus nerve was noted in its usual course posterior lateral to the common carotid artery, and care was
taken to avoid any dissection/injury to it. I then continued my dissection up the common carotid artery to the bulb staying only on the anterior surface of the carotid artery. Then I carried the dissection up to the internal carotid artery and
then to the distal internal carotid artery. I identified where it was soft and carefully circumferentially dissected the internal carotid artery with minimal mobilization and passed a vessel loop around it. Note the hypoglossal nerve was not
directly visualized in her field and was felt to be further cephalad. The patient was given an appropriate dose of heparin 6000 units. Next I dissected the anterior surface of the external carotid artery and superior thyroid branches. These were
then carefully circumferentially dissected with minimal mobilization and vessel loops passed around these which were double looped but not yet tightened. After 3 minutes of heparin circulation time and confirmation of optimization of the blood
pressure with my anesthesiology colleagues, I clamped the distal internal carotid artery where it was soft. There was no immediate EEG or SSEP changes. After 1 minute of test clamp time there was no changes noted. However, the patient was in and
out of burst suppression. Though the EEG's and SSEPs were able to be interpreted and did not show any changes. Initially I felt I likely would place a shunt regardless due to this fact. Therefore at this point, the vessel loops on the external
carotid artery and superior thyroid branches were tightened and the common carotid artery was clamped where it was soft proximally. An arteriotomy was made on the common carotid artery with an 11 blade and extended using a Marks scissor. I
extended the arteriotomy onto the mid to distal internal carotid artery. There was mixed plaque with soft central component noted at the proximal internal carotid artery/distal bulb. Resulted in severe stenosis. Butler likely to be the source of
her recent stroke. A Hazen was then used to endarterectomized the plaque. An endarterectomy plane was created, and the plaque was then endarterectomized. Distally I feathered the plaque out to a nice clean endpoint in the distal internal carotid
artery. Next I endarterectomized the intima back to normal intima in the common carotid artery, and the intima was cut flush there. I then grasped the plaque and everted plaque out of the origin of the external carotid artery. The plaque was then
sent off for specimen. However, I noted that the intima proximally on the common carotid artery initially appeared nicely adherent, and now appeared somewhat folded over. I therefore then grasped this and pulled out a donut like ring of intima.
This then extended near to the clamp and I could not see the endpoint. I therefore then had to move my clamp more proximally. I then reclamped more proximally and then extended my arteriotomy. Again the intima here looked somewhat from
the deeper layers. However, I could see the true lumen I elected at this point that I could place a shunt as I had originally planned. However, I tried to pass the [place] shunt distally in the internal carotid artery, but it only passed about a
centimeter. There was tortuosity noted on CT scan I felt that this was hitting the area of tortuosity. In addition, given the stability of EEG/SSEP tracings at this point, and better interpretability, I felt that the risk of shunting here
outweighed the benefit. At this point I had to extend my incision more proximally, and expose the common carotid artery more proximally and move my clamp. I then was able to extend my arteriotomy proximally and get to much better adherent intima.
It was just a very fragile intima and therefore I handled with great care. It looks nicely adherent at this point. The origin of the external carotid artery was carefully visualized and any fine debris were removed with fine forceps. Proximal
and distal endpoints were then carefully inspected. Any fine debris was removed with fine forceps, and the intima was noted to be nicely adherent proximally and distally. Next any fine debris were removed throughout the endarterectomy bed with
fine forceps. I then flushed heparinized saline. I was very satisfied. Then, I used a bovine pericardial patch to sew a patch angioplasty with a running 6-0 Prolene suture. This proved to be a long patch secondary to the extent of the
arteriotomy onto the common carotid artery. Prior to completing and tying down my suture line, I backbled sequentially each branch and reclamped each branch prior to unclamping the next branch. I then irrigated with heparinized saline. Then I
completed and tied down my suture line. We then restored flow in the common carotid and external carotid arteries. Finally, we released flow in the internal carotid artery. There was excellent pulsatile flow in all 3 vessels. There was an
excellent Doppler signal in the internal carotid artery distal to the patch with a good normal low resistance Doppler signal. There was a good Doppler signal in the external carotid artery as well. A few 6-0 Prolene [id number] sutures were
placed along any bleeding points along the suture line. Protamine was given to reverse the heparin. There was still a couple suture line bleeders that were initially repaired with [id number] type sutures. However the needle holes continue to
bleed. I noted that the patient's blood pressure was significantly high again. The anesthesiology team was having difficulty with lability of the blood pressure (either too high or too low). Therefore I meticulously achieved hemostasis. The
blood pressure was better stabilized. Now I was satisfied with full hemostasis and confirmed. I irrigated and again confirmed full hemostasis. I then closed in layers with 2-0 Vicryl layer to reapproximate the sternocleidomastoid muscle,
followed by 3-0 Vicryl platysma muscle running layer, followed by 4 Monocryl subcuticular stitch. Dermabond was applied. The patient tolerated procedure well. She was slow to emerge from anesthesia, but she awoke moving all extremities at
baseline to command with tongue in the midline.
[2023-09-28 14:29] LABS: Hematocrit 37.7 % (37.0-47.0); Mean Corp Hgb Conc. 34.5 g/dL (33.0-37.0); Mean Corpuscular Hgb 30.4 pg (27.0-31.0); Mean Corpuscular Volume 88.3 fL (81.0-99.0); Mean Platelet Volume 9.5 fL (7.4-10.4); Platelet Count 164 10^3/uL (130-400); Red Blood Cell Count 4.27 10^6/uL (4.20-5.40); Red Cell Dist. Width 13.2 % (11.5-14.5); White Blood Cell Count 10.3 10^3/uL (4.8-10.8)
[2023-09-28 14:42] LABS: Blood Urea Nitrogen 16 mg/dl (7-17); Calcium 8.1 mg/dl (8.4-10.2); Carbon Dioxide 22 mmol/L (22-30); Chloride 107 mmol/L (98-107); Estimated Creatinine Clearance 64 ml/min; Glucose 151 mg/dl (70-99); Potassium 3.7 mmol/L (3.5-5.1); Sodium 134 mmol/L (135-145); eGFR > 60.00
[2023-09-28 14:47] LABS: INR 1.13; PT 14.5 Sec (11.4-14.6)
[2023-09-28 14:48] LABS: APTT 27.2 Sec (23.4-35.0)
[2023-09-28] MEDS: NSS 1000 IV (14:59)
--- NOTE | 2023-09-28 16:03 | SUR.PHASEI ---
difficult neuro assess - changes each assess, speech at some times clear and appropriate, other times garbled. repeats ' all his kids' repeats. Moves all extremities now, gives , denies pain facial droop on right and tongue deviates to right.
echymosis unchanged, await ultrasound of left forearm - discharge to [facility] - hand off at bedside.
--- NOTE | 2023-09-28 16:15 | PTCARENOTE ---
Assumed care of patient. Pt rec'd drowsy but arousable to verbal stimuli. Pupils 2/brisk. Able to ROSAS's...varying levels of strength noted. NIHSS 10...see intervention. Able to let needs be known but occasionally difficult to understand.
Follows commands. Anxious at times. Denies pain. S1 S2 reg w/ NSR/BBC/1st degree AVB and prolonged QT on monitor. +DP/PT/RP's by doppler. Left wrist ultrasound done at bedside. 2L N/C...sats 99%. Lungs clear...diminished in bases. Abdomen
round...+BS. Incontinent of yellow urine. Bladder scan done....700mls post void noted. Hubbard placed for acute retention. Skin pale in color....scattered forearm ecchymosis. Left forearm w/ purple ecchymosis and +1 edema....blu wrap applied.
Left neck w/ approximated incision...ASHELY w/ glue. 18P RFA w/ IVF's infusing. Right radial gómez...flushed and zeroed...positional. (2) LFA INT's noted. VS documented. Goal to maintain SBP b/t 100-160. Able to take sips of water w/o issue.
Call polk within reach. Will continue to monitor closely.
[2023-09-28] MEDS: COZAAR PO (16:17)
[2023-09-28] MEDS: CELEXA PO (16:17)
[2023-09-28] MEDS: LOW STRENGTH ASPIRIN PO (16:17)
[2023-09-28] MEDS: PLAVIX PO (16:18)
[2023-09-28] MEDS: TOPROL XL PO (16:18)
--- NOTE | 2023-09-28 16:20 | CON.INTV ---
Consultation
Consultation Request
Date/Time Consultation Requested: 09/28/2023
Date/Time Consultation Performed: 09/28/2023
Requesting Provider: Dr. Gardiner
Performing Provider: Dr. Giovani Marin
Reason for Consultation: Status post carotic endarterectomy
Medical History
-
History of Present Illness:
83-year-old woman with past medical history significant for type pretension, hypothyroidism, depression anxiety initially admitted to the hospital on 09/25/2023 with facial droop and right leg weakness.
Diagnosed with acute CVA., Found to have a 70% left proximal internal carotid artery stenosis.
Subsequent MRI showed focal nonhemorrhagic acute infarct of the left denson radiata. Evaluated by vascular surgery and deemed candidate for carotic endarterectomy.
Surgery underwent on 09/28/2023.
Now transferred to the critical care unit for further care
Past Medical History
Past Medical History: Other (See assessment and plan section)
Family History
Family History: Reviewed & Not Pertinent
Allergies / Home Medications
Allergies
Allergy/AdvReac Type Severity Reaction Status Date / Time
No Known Allergies Allergy Verified 08/23/23 18:08
Home Medications
�Medication �Instructions �Recorded �Confirmed �Last Taken �Type
acetaminophen 325 mg tablet 650 mg PO Q4HPRN PRN knee pains 09/25/23 09/25/23 09/25/23 History
(Tylenol)
citalopram 20 mg tablet (Celexa) 20 mg PO DAILY depression/anxiety 09/25/23 09/25/23 Unknown History
levothyroxine 50 mcg tablet 50 mcg PO DAILY Thyroid 09/25/23 09/25/23 Unknown History
(Synthroid)
losartan 100 mg tablet 100 mg PO DAILY Blood Pressure 09/25/23 09/25/23 Unknown History
metoprolol succinate 25 mg 25 mg PO DAILY Blood Pressure 09/25/23 09/25/23 Unknown History
tablet,extended release 24 hr
(Toprol XL)
Review of Systems
-
History Source: Patient
All other systems: Negative unless noted
Vitals / Labs / Diagnostic Testing
Vital Signs
Temp Pulse Resp BP Pulse Ox
98 F 86 15 135/89 99
09/28/23 15:15 09/28/23 15:55 09/28/23 15:55 09/28/23 14:43 09/28/23 15:55
Lab Data
09/28/23 14:14
09/28/23 14:14
Laboratory Results
09/28/23
14:14
PT 14.5
INR 1.13
APTT 27.2
Diagnostic Testing:
Physical Exam
-
HEENT: Normocephalic
Cardiovascular: S1/S2
Respiratory: Clear and Non-Labored Respirations
GI: Soft and Non Distended
Neurology: Awake, Other (Facial drooping.) and Other (Alert, following commands. Dysarthria noted)
Skin: Warm and Other (Left wrist bruised. Pulses are present. Discoloration of fingers distally, not tender. Feels warm)
General: Respiratory Distress (n)
Assessment
-
83-year-old woman with history of hypertension, hypothyroidism, admitted with right facial drooping and right leg weakness. Diagnosed with acute CVA. Found to have significant left carotid artery stenosis. Underwent left carotid endarterectomy
and transferred to the critical care unit on 09/28/2023.
Status post Left carotid endarterectomy with bovine pericardial patch angioplasty and intraoperative EEG/SSEP monitoring. 09/28/2023
Acute CVA: Right facial droop/right leg weakness.
70% left proximal internal carotid artery stenosis.
Left wrist bruising: Post arterial line attempts-strong radial pulse present.
Conditions present prior admission:
Hypothyroidism
Hypertension
Depression/anxiety
Alcohol use-1 drink per day
Assessment and plan:
Postoperative surgical intensive care unit monitoring
Supplemental oxygen as needed
Incentive spirometry encouraged.
Aspiration precautions
Left cervical incision is intact.
No stridor on exam per
No hematoma
Continue with analgesia: Monitor respiratory status closely
Neuro and vascular checks per protocol
Vascular surgery following-correspondence and operative notes reviewed
Antiplatelet
Monitor blood pressure
Arterial line on right wrist.
Cardene drip if needed
Restart outpatient antihypertensive.
Left wrist/hand bruising: Likely from arterial line placement.
Distal pulse present.
Continue to monitor.
Postoperative anemia.
Follow hemoglobin-will transfused as necessary.
Hubbard will be placed overnight. Patient has some degree of urinary retention.
Follow blood sugars
Insulin supplementation as needed
DVT prophylaxis-SCDs for now.
[2023-09-28] MEDS: CRESTOR 20 MG PO (17:54)
--- NOTE | 2023-09-28 20:16 | PTCARENOTE ---
Pt received at 19:00. Handoff NIH = 12. Pt drowsy but easily arousable. Ox2--disoriented to time. Pupils 2mm and brisk. R UE & LE weak. R sided facial droop. Expressive aphasia noted intermittently, slurred speech. SR w/ 1st degree AVB, BBB,
prolonged QT. +1 edema to L FA, bruising noted--unchanged. L radial and ulnar pulses present w/ doppler. R radial pulse palpable. B/L DP and PT pulses present with doppler. R radial a-line zeroed and transduced, correlating with cuff pressure.
A-line previously positional, redressed--wave form improved. 2L NC, pulse ox 96%, breath sounds diminished at the bases. Occasional weak, dry, non productive cough. Abdomen soft/non-tender, +BS, poor PO intake at this time. No BM noted at this time.
Hubbard in place for retention, clear yellow urine. 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 Small amount of ecchymosis around incision--no change. Pt denies pain, requesting ice for incision--iced as per order. Safe environment
maintained, call polk within reach.
[2023-09-29] VITALS (9 sets, daily range): BP systolic 117–173; BP diastolic 55–82; PULSE 65–70; O2SAT 96–97; BMI 22.4
--- NOTE | 2023-09-29 00:11 | PTCARENOTE ---
Speech intermittently more clear. Remains disoriented to time, forgetful. L radial and ulnar pulses present with doppler, L FA bruising unchanged. Pt repositioned q2h.
[2023-09-29 03:25] LABS: Hematocrit 33.5 % (37.0-47.0); Hemoglobin 11.2 g/dL (12.0-16.0); Mean Corp Hgb Conc. 33.4 g/dL (33.0-37.0); Mean Corpuscular Hgb 30.3 pg (27.0-31.0); Mean Corpuscular Volume 90.5 fL (81.0-99.0); Mean Platelet Volume 9.7 fL (7.4-10.4); Platelet Count 154 10^3/uL (130-400); Red Cell Dist. Width 13.2 % (11.5-14.5); White Blood Cell Count 12.5 10^3/uL (4.8-10.8)
[2023-09-29 03:35] LABS: INR 1.11; PT 14.4 Sec (11.4-14.6)
[2023-09-29 03:36] LABS: APTT 27.3 Sec (23.4-35.0)
[2023-09-29 03:40] LABS: Blood Urea Nitrogen 19 mg/dl (7-17); Calcium 8.4 mg/dl (8.4-10.2); Carbon Dioxide 23 mmol/L (22-30); Chloride 109 mmol/L (98-107); Estimated Creatinine Clearance 55 ml/min; Glucose 148 mg/dl (70-99); Magnesium 1.9 mg/dl (1.6-2.3); Sodium 137 mmol/L (135-145); eGFR > 60.00
[2023-09-29] MEDS: NSS 1000 IV (03:55)
--- NOTE | 2023-09-29 05:55 | PTCARENOTE ---
Pt more alert. Improved strength noted to RLE, able to lift R leg against some resistance. Safe environment maintained, pt bathed and repositioned.
[2023-09-29] MEDS: SYNTHROID 12.5 MCG PO (06:16)
[2023-09-29] MEDS: SYNTHROID 50 MCG PO (06:16)
--- NOTE | 2023-09-29 06:50 | W.PN.HOSP.TC ---
Today's Communication/Plan
-
Advance diet as per vascular surgery
Increase activity out of bed
Encourage incentive spirometry
Continue to monitor neurologic status
Continue dual antiplatelet therapy and prior antihypertensives
PMNR to reevaluate after out of ICU for acute rehab placement
Assessment / Plan
Assessment / Plan
Patient is an 83-year-old female who history has been obtained through her . Patient said she could not move her right leg earlier today approximately 7:30 in the morning so her gave her 2 Tylenol and Job wrap to the leg and she does
have chronic issues with that. She was doing okay and had no issues swallowing to Tylenol that he gave her and he put her or kept her in bed. Around 1130 he went upstairs and found her on the floor in the bathroom. He stated that she was sitting
on her but trying to scoot out from the bathroom. He he said she told him that she had trouble getting up from the toilet. He noticed a facial droop at that time. EMS was called and the patient was brought to the emergency room.
Patient is an 83-year-old female
Acute CVA--given her right facial droop and complaints of right leg trouble along with a 70% left proximal internal carotid artery stenosis, this is likely an acute stroke-
-also noted on carotid ultrasound
-ADMIT to tele-
-consult neurology--continue aspirin and Plavix--start 20 mg Crestor(describes prior statin induced myalgias)--check lipids-
-check MRI-focal nonhemorrhagic acute infarct in the left denson radiata.
-consult PT/OT/speech
-PM and R consultation noted and awaiting postop recovery
Underwent left carotid endarterectomy/September 27
-symptomatic left internal carotid stenosis and left-sided infarct/appreciate vascular surgery input
-Left forearm ecchymosis presumed from arterial line placement/distal pulses noted/no signs of bleeding or pseudoaneurysm on arterial Doppler imaging.
-Advancing diet as per vascular presently on clears
-Encourage incentive spirometry
-Postop urine retention had Hubbard catheter inserted overnight with postvoid residuals of 700 cc/see how she does with increase activity and eventual void trial
-Also placed consult for PMNR/candidate for acute inpatient rehab but will be reevaluated after carotid surgery
Hypothyroidism--continue 62.5 mg of Synthroid--check TSH
Essential hypertension-- states blood pressure usually runs 120s over 70s or 80s--continue losartan and metoprolol to/now past. Of permissive hypertension--keep systolic blood pressure less than 180/
Depression/anxiety--continue Celexa
Alcohol use--patient drinks 1 drink per day--watch for DTs
DVT prophylaxis--sequential teds
CODE STATUS--full code
Anticipated Discharge: Within 24 hours
Subjective/Interval History
-
Date of Service: September 29, 2023
Is some increased slurring and right-sided weakness after surgery and then postop but now with improved speech also noted to have ecchymosis of the left forearm denies any pain at rest or throughout arm and able to move it
Objective Data
-
Labs:
Laboratory Results
09/29/23
03:16
WBC 12.5 H
Hgb 11.2 L
Hct 33.5 L
Plt Count 154
PT 14.4
INR 1.11
APTT 27.3
Sodium 137
Potassium 4.0
Chloride 109 H
Carbon Dioxide 23
BUN 19 H
Creatinine 0.7
Glucose 148 H
Calcium 8.4
Vital Signs:
Vital Signs
Temp Pulse Resp BP Pulse Ox
97.0 F 72 17 133/62 96
09/29/23 03:29 09/29/23 05:30 09/29/23 05:30 09/29/23 02:27 09/29/23 05:30
I&O
09/27/23 09/28/23 09/29/23
06:59 06:59 06:59
Intake Total 100 / 100 1630 / 1630
Output Total 1005 / 1005
Balance 100 / 100 625 / 625
Review of Systems
-
History Source: Patient
Constitutional: Reports Fatigue and Weakness
EENT: Reports No Symptoms Reported
Respiratory: Reports No Symptoms
Cardiac: Reports No Symptoms
Abdomen/GI: Reports No Symptoms
Physical Exam
-
General: Well Developed
HEENT: Neck Non Tender (Left neck incision well opposed/)
Respiratory: Clear to Auscultation
Cardiac: Regular Rhythm
GI: Soft
Musculoskeletal: Edema, Left Upper Extrem (Some ecchymosis in the forearm left radialis site intact)
Skin: Warm
Neuro: Awake, Alert, Oriented (Oriented to time place and person this morning) and No Motor Deficits (Right-sided weakness but able to elevate right arm and right/slurred speech back to her baseline prior to surgery)
Psych: Calm
Data Reviewed
-
Total Time Spent with Patient (in minutes): 67
Labs: Labs Reviewed by me (White count up to 12.5/hemoglobin stable at 11.2/BMP stable glucose 148/platelets 154,000)
--- NOTE | 2023-09-29 07:26 | W.PN.VS ---
Addendum entered and electronically signed by Dennis Gardiner MD 09/29/23 08:55:
Seen and examined with PURCHASING INTERN. Agree with findings as noted below. Left neck incision is clean dry and intact, no hematoma. Neurologically moves all extremities. Speech and facial asymmetry at baseline preoperatively. Plan/as discussed and noted
below.
Original Note:
Today's Communication / Plan
-
Seen and assessed with Dr. Gardiner
Assessment/Plan
-
POD1 left CEA
Plan:
-DC A-line
-DC Hubbard, void trial
-Out of bed/ambulate as tolerated
-PT/OT
-Okay to downgrade later today
Subjective Data
-
Date of Service: September 29, 2023
Patient seen at bedside this a.m. with Dr. Gardiner. Patient offers no complaints at this time. She states she feels better than preop. No events overnight. No drips needed.
Objective Data
-
Vital Signs
Temp Pulse Resp BP Pulse Ox
97.0 F 72 17 133/62 96
09/29/23 03:29 09/29/23 05:30 09/29/23 05:30 09/29/23 02:27 09/29/23 05:30
Intake and Output
09/28/23 09/29/23 09/30/23
06:59 06:59 06:59
Intake Total 1630 / 1630
Output Total 1005 / 1005
Balance 625 / 625
Intake:
Oral fluids 100 / 100
IV fluids (Total) 1530 / 1530
Nss 1,000 ml @ 80 mls/hr IV . 1280 / 1280
[id number] [id number] Rx#:[id number]
nss 250 / 250
Output:
Urine, Hubbard 1005 / 1005
Other:
Number of approximated MODERATE 1
amounts of urine
How many times incontinent 1
SMALL amount urine
How many times incontinent 2 1
MODERATE amount urine
Lab Results
09/29/23 03:16
09/29/23 03:16
Calcium 8.4 mg/dl (8.4-10.2) 09/29/23 03:16
Magnesium 1.9 mg/dl (1.6-2.3) 09/29/23 03:16
Total Bilirubin 0.7 mg/dl (0.2-1.3) 09/25/23 18:00
AST 33 U/L (14-36) 09/25/23 18:00
ALT 17 U/L (0-35) 09/25/23 18:00
Alkaline Phosphatase 87 U/L (38-126) 09/25/23 18:00
Total Protein 6.3 g/dl (6.3-8.2) 09/25/23 18:00
Albumin 3.8 g/dl (3.5-5.0) 09/25/23 18:00
Physical Exam
-
Alert, awake
No tachypnea
No tachycardia
Neck site clean dry and intact, soft, no drainage
Moves all extremities
Continues with facial asymmetry, same as preop
Moderate expressive aphasia
--- NOTE | 2023-09-29 07:48 | PTCARENOTE ---
Right Patricia removed, pressure dressing applied no bleeding at site
[2023-09-29] MEDS: TOPROL XL 25 MG PO (07:59)
[2023-09-29] MEDS: LOW STRENGTH ASPIRIN 81 MG PO (07:59)
--- NOTE | 2023-09-29 08:00 | PTCARENOTE ---
Handoff NIH = 7 Pt drowsy but easily arousable. Ox2--disoriented to time. Pupils 2mm and brisk. R UE & LE weak. R sided facial droop. Expressive aphasia noted intermittently, slurred speech. SR w/ 1st degree AVB, BBB, prolonged QT. +1 edema to L
FA, bruising noted. L radial and ulnar pulses present w/ doppler. R radial pulse palpable. B/L DP and PT pulses present with doppler Room air pulse ox 96%, breath sounds diminished at the bases. Occasional weak, dry, non productive cough. Abdomen
soft/non-tender, +BS Hubbard in place for retention, clear yellow urine. L neck incision sealed w/ glue, well approximated, ASHELY. Small amount of ecchymosis around incision Pt denies pain, requesting ice for incision, Safe environment maintained, call
polk within reach.
[2023-09-29] MEDS: PLAVIX 75 MG PO (08:01)
[2023-09-29] MEDS: COZAAR 100 MG PO (08:01)
--- NOTE | 2023-09-29 08:21 | W.PN.NEURO.1 ---
Today's Communication / Plan
-
-DAPT therapy with aspirin and clopidogrel total of 21 days then aspirin alone, end date of Plavix 10/13
-Rosuvastatin 20 mg monitor for myalgias
-NIH and neurologic checks
-Goal normotension would pursue SBP less than 180 maximum
-PT/OT speech therapies
-Evaluating for rehab candidacy
Will sign off call with questions and concerns
Neuro Assessment/Plan
Assessment
symptomatic left carotid stenosis given right face arm and leg weakness along with aphasia leading to left MCA territory infarct.
s/p left carotid endarterectomy 09/27
Subjective/Objective
Subjective Data
Date of Service: September 29, 2023
No acute events, this morning she is not having pain in the neck no headache, discussed the stroke, surgery and medications for prevention, recovery from stroke
Objective Data
Vital Signs
Temp Pulse Resp BP Pulse Ox
97.6 F 75 18 138/63 98
09/29/23 07:43 09/29/23 08:15 09/29/23 08:15 09/29/23 08:01 09/29/23 08:15
Lab Results
09/29/23 03:16
09/29/23 03:16
PT 14.4 Sec (11.4-14.6) 09/29/23 03:16
INR 1.11 09/29/23 03:16
APTT 27.3 Sec (23.4-35.0) 09/29/23 03:16
Sodium 137 mmol/L (135-145) 09/29/23 03:16
Potassium 4.0 mmol/L (3.5-5.1) 09/29/23 03:16
BUN 19 mg/dl (7-17) H 09/29/23 03:16
Glucose 148 mg/dl (70-99) H 09/29/23 03:16
Calcium 8.4 mg/dl (8.4-10.2) 09/29/23 03:16
LDL Cholesterol, Calc 106 mg/dl 09/26/23 06:27
Vitamin B12 472 pg/ml (562-101) 09/26/23 06:27
Patient Allergies
No Known Allergies Allergy (Verified 08/23/23 18:08)
LDL Level: >70, statin ordered
Review of Systems
-
History Source: Patient
All other systems: Reviewed and negative
Constitutional: No Symptoms
Respiratory: No Symptoms
Cardiac: No Symptoms
Abdomen/GI: No Symptoms
Genitourinary: No Symptoms
Musculoskeletal: No Symptoms
Skin: No Symptoms
Neuro: Speech Problem
Endocrine: No Symptoms
Hematologic / Lymphatic: No Symptoms
Allergy / Immunology: No Symptoms
Physical Exam
-
General: Comfortable
Eyes: No Ptosis
HEENT: Other (Left CEA clean dry intact no masses)
Neck: Full Range of Motion
Respiratory: No Dyspnea; Negative Wheezes
Cardiac: No Murmur
GI: Non-tender
Extremities: No Edema
Extended Neurological Exam
Attention Span & Concentration: Awake, Alert, Interactive and Mild Difficulty with 2 Step Request
Memory: Able to Recall
Tremor: Hand Tremor Absent
Involuntary Movement: None
Speech: Expressive Aphasia, Receptive Aphasia and Dysarthric
Cranial Nerve II: Left Eye: Pupillary Reactivity Unremarkable and Pupillary Size Unremarkable
Cranial Nerve II: Right Eye: Pupillary Reactivity Unremarkable and Pupillary Size Unremarkable
Cranial Nerves III, IV, : Extraocular Movement: Extraocular Movement Full in all Directions
Muscle Strength, Overall: Full Throughout
Pronator Drift: No Drift in Upper Extremities
Deep Tendon Reflexes: Trace Throughout
Data Reviewed
-
CT-A: Report Reviewed and Image Reviewed
CT Head: Report Reviewed and Image Reviewed
MRI Head: Report Reviewed and Image Reviewed
Echocardiogram: Report Reviewed
Labs: Report Reviewed
Lipid Profile: Report Reviewed
HgbA1C: Report Reviewed
--- NOTE | 2023-09-29 08:21 | PTOTSP ---
Pt status post L CEA on 09/28/23. Will need new OT and PT orders to resume therapy when stable for activity.
--- NOTE | 2023-09-29 08:50 | PTOTSP ---
Chart reviewed. Patient underwent CEA on 09/28/23. As per rehab protocol; PT/OT will require restart orders when patient is appropriate to participate. Will discuss with RN.
--- NOTE | 2023-09-29 08:58 | PTCARENOTE ---
2 person OOB assist to chair, PT set up and assisted, however PT brushed teeth and washed face independently after being set up, PT remains OOB in chair
[2023-09-29] MEDS: CELEXA 20 MG PO (09:33)
--- NOTE | 2023-09-29 09:53 | W.PN.UPDATE ---
Update Note
Progress Note Update
Patient during ST evaluation noted to have coughing with liquids and after dry solids. Recommendation is for VSE and L6 soft and bite-size diet
--- NOTE | 2023-09-29 10:06 | PTOTSP ---
Dysphagia Therapy
Patient presents with signs concerning for at least mild oral/pharyngeal dysphagia after stroke and POD #1 s/p L CEA. Intermittent signs concerning for aspiration noted with thin liquids. Objective swallowing assessment warranted. See patient
care note for details.
Recommend:
1. IDDSI Level 6 Soft and Bite Sized, IDDSI Level 0 Thin Liquids
2. Medications - in puree
3. Full supervision
4. Strategies - small single sips/bites, slow rate, take break if coughing
5. Oral care 3-5x daily
6. Video swallow study if patient willing
--- NOTE | 2023-09-29 10:38 | W.PN.INTV ---
Today's Communication / Plan
Recommendations
Continue postoperative care
Physical therapy/Occupational Therapy
Modified diet, will need barium swallow at some point
Continue antiplatelets
Analgesia
Hopefully can transfer out of the ICU later today.
Assessment
-
83-year-old woman with history of hypertension, hypothyroidism, admitted with right facial drooping and right leg weakness. Diagnosed with acute CVA. Found to have significant left carotid artery stenosis. Underwent left carotid endarterectomy
and transferred to the critical care unit on 09/28/2023.
Status post Left carotid endarterectomy with bovine pericardial patch angioplasty and intraoperative EEG/SSEP monitoring. 09/28/2023
Acute CVA: Right facial droop/right leg weakness.
70% left proximal internal carotid artery stenosis.
Left wrist bruising: Post arterial line attempts-strong radial pulse present.
Conditions present prior admission:
Hypothyroidism
Hypertension
Depression/anxiety
Alcohol use-1 drink per day
Assessment and plan:
Doing well postoperative day 1
Sitting out of the chair.
Following commands.
Continue to encourage incentive spirometry
Continue aspiration precautions
Speech evaluation noted. Recommending video barium swallow
Left cervical incision is intact.
No stridor on exam
No hematoma
Continue with analgesia: Monitor respiratory status closely
Neuro and vascular checks per protocol
Vascular surgery following
Continue antiplatelets
Arterial line discontinue
Monitor blood pressure
Restart outpatient antihypertensive.
Left wrist/hand bruising: Likely from arterial line placement.
On physical exam is stable
Pulses distally are present
Follow hemoglobin. Currently stable.
Discontinue Hubbard
Physical therapy/Occupational Therapy
Physiatry consultation
Follow blood sugars
Insulin supplementation as needed
DVT prophylaxis-SCDs for now.
-
Hopefully can transfer to telemetry later today.
If transferred to telemetry critical care team will sign off.
Subjective Dataa
Subjective Data
Date of Service:
Date of Service: September 29, 2023
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
Subjective:
Offers no complaints this morning.
Hemodynamically stable overnight
Denies blurry vision or headache.
Denies nausea or vomiting.
Review of Systems
GI: Abdominal Pain (n) and Nausea (n)
Neuro: Headache (n)
Objective Data
Data Reviewed
Vital Signs / I&O / Oxygen:
Vital Signs
Temp Pulse Resp BP Pulse Ox
97.6 F 75 18 138/63 96
09/29/23 07:43 09/29/23 08:15 09/29/23 08:15 09/29/23 08:01 09/29/23 08:22
Intake and Output
09/28/23 09/29/23 09/30/23
06:59 06:59 06:59
Intake Total 1630 / 1710 400 / 400
Output Total 1005 / 1005 60 / 60
Balance 625 / 705 340 / 340
SaO2 96
Nasal Cannula flow liters per 2
minute
Physical Exam
General: Respiratory Distress (n) and Comfortable
HEENT: Normocephalic
Cardiovascular: S1-S2
Respiratory: Clear and Non-Labored Respirations
GI: Soft and Non Distended
Neurology: Awake, Alert and Other (Facial drooping)
Skin: Other (Radial pulses present bilaterally) and Other (Left hand bruising-improved.)
Labs/Micro/Reports
Lab Data
09/29/23 03:16
09/29/23 03:16
Laboratory Results
09/28/23 09/29/23
14:14 03:16
PT 14.5 14.4
INR 1.13 1.11
APTT 27.2 27.3
--- NOTE | 2023-09-29 12:14 | PTCARENOTE ---
PT remains OOB in chair after PT/OT, family at bedside, denies any complaints at this time, assessment remains unchanged
--- NOTE | 2023-09-29 13:36 | PTCARENOTE ---
Assessment remains unchanged, PT continues with inability to track, right sided weakness/neglect, right sided gaze, PT/OT and nursing had long explanation with family to purposefully make PT use her neglected hand and sit on her right side to make
her use them, family verbalizes understanding, PT returned from Swallow Eval, no signs of aspiration noted, although noted that PT should take a break after chewing before next bite
--- NOTE | 2023-09-29 14:45 | PTCARENOTE ---
NO urine output since removal of Hubbard, bladder scanned, urine in bladder 22 ml, will continue to monitor, call polk in reach, bed in lowest position, safe environment provided
--- NOTE | 2023-09-29 15:03 | PTOTSP ---
Video Swallow Study
Summary: Patient presents with at least mild-moderate oral and mild pharyngeal dysphagia felt to be secondary to her CVA. No aspiration occurred. There was upper laryngeal penetration with thin liquids due to delay in swallow onset and which
persisted in upper laryngeal vestibule with cup sips (but did not progress) due to decreased laryngeal vestibule closure. There was significant esophageal retention which was only minimally reduced with a thin liquid wash. Please see patient care
note for full details of penetration/aspiration and swallowing physiology.
Recommend:
1. Regular (pick soft/moist foods), Thin Liquids
2. Medications - as best tolerated
3. Strategies: upright to 90 degrees, small single sips/bites, slow rate, alternate solids and liquids (to try and reduce esophageal residue), remain upright for 30 minutes after meals as a reflux precaution
4. Supervision with PO intake
5. Oral care 3x daily
6. Dysphagia therapy for patient education and instruction in compensations. Continue speech/language therapy for aphasia, dysphonia, dysarthria.
--- NOTE | 2023-09-29 15:56 | W.PN.UPDATE ---
Update Note
Progress Note Update
Stable hemodynamically.
Hubbard catheter has been discontinued
No acute complaints. Neurologically stable.
Transfer to telemetry.
Critical care team will sign off.
Please call pulmonary if any respiratory issues arise.
[2023-09-29] MEDS: CRESTOR 20 MG PO (17:21)
--- NOTE | 2023-09-29 17:25 | PTCARENOTE ---
Per son PT is prone to UTI's I explained that I understand and will pass on to the following nurse, however if there isnt at least 400 ml's we will not bladder scan, PT is feeding self in bed using weaker of 2 arms
--- NOTE | 2023-09-29 20:00 | PTCARENOTE ---
Received patient in bed, AAOx3, following commands, denying pain. Impulsive, bed alarm on, instructed not to get up without help from nursing staff. PEERLA 3 mm. Right facial droop and mild right sided weakness present, mild aphasia. NIH 7. Left
hand +1 edema, ecchymotic. Normal sinus with first degree block and BBB, 70s-80s. BP stable, 150s/80s. Pedal and doppler pulses weak on palpation bilaterally, radial pulses normal bilaterally. 97% on room air, diminished at the bases. No BM yet this
shift. Voids in bathroom/commode with assistance. Incision on left neck ecchymotic, surgiglue in place. PIVs WNL, intact, no gtt. Call polk within reach, able to make needs known.
--- NOTE | 2023-09-29 23:20 | PTCARENOTE ---
cannot verify vitals prior to 1900, previous shift.
--- NOTE | 2023-09-29 23:42 | PTCARENOTE ---
Addendum entered by Mindy Varma RN 09/30/23 00:17:
Neurology also aware of fall.
Original Note:
Patient bed alarm going off, this RN came into the room to help patient to the commode and instructed patient to use the call polk rather than attempting to get out of bed by herself. Patient verbalized understanding. Transferred patient to commode
without any issues, gave patient call polk and instructed her to call when she was finished so this RN could help her get cleaned up and back into bed. Patient verbalized understanding she should not attempt to get off the commode without assistance
and verbalized she will call when she's finished. This RN stepped out of the room, heard patient fall and found patient on the ground with the commode on the ground next to her and urine around her. Patient reports she hit her head and elbow. Skin
tear bleeding, held pressure and cleaned, foam on top. CHG bath done, gown changed, sheets changed. House provider notified of fall, stat head CT taken, no acute intracranial hemorrhage or extra-axial collection. Asked the patient if she is
forgetful, patient stated 'no, I thought it was close enough that I could get back to bed myself'. Patient education about falls and calling for assistance reinforced. Call polk within reach, safe environment maintained.
[2023-09-30] VITALS (9 sets, daily range): BP systolic 121–159; BP diastolic 52–87; PULSE 71; O2SAT 97; BMI 22.7
[2023-09-30 04:40] LABS: Hematocrit 32.3 % (37.0-47.0); Hemoglobin 11.1 g/dL (12.0-16.0); Mean Corp Hgb Conc. 34.4 g/dL (33.0-37.0); Mean Corpuscular Hgb 30.1 pg (27.0-31.0); Mean Corpuscular Volume 87.5 fL (81.0-99.0); Mean Platelet Volume 9.5 fL (7.4-10.4); Platelet Count 157 10^3/uL (130-400); Red Blood Cell Count 3.69 10^6/uL (4.20-5.40); Red Cell Dist. Width 13.2 % (11.5-14.5); White Blood Cell Count 12.5 10^3/uL (4.8-10.8)
[2023-09-30 05:08] LABS: Blood Urea Nitrogen 20 mg/dl (7-17); Carbon Dioxide 24 mmol/L (22-30); Chloride 107 mmol/L (98-107); Estimated Creatinine Clearance 55 ml/min; Glucose 101 mg/dl (70-99); Sodium 136 mmol/L (135-145); eGFR > 60.00
[2023-09-30] MEDS: SYNTHROID 12.5 MCG PO (06:08)
[2023-09-30] MEDS: SYNTHROID 50 MCG PO (06:09)
--- NOTE | 2023-09-30 07:18 | W.PN.HOSP.TC ---
Addendum entered and electronically signed by Carlos A Sheehan MD 09/30/23 13:41:
Spoke to patient's daughter and updated her on status and wanted to have some kind of treatment options offered after it was explained to her that patient changes in mental status today may be in relation to the fall she incurred overnight and did
explain that we have obtained [address] scans of the head since the fall without any evidence of any intracranial hemorrhage hematoma or changes from those noted at time of MRI noting her left-sided subacute infarct that remains unchanged and
probably changes at this time are related to concussive syndrome. She did relate to me that several weeks ago patient also fell and struck her head on a curb and may have been suffering from effects of a concussion at that time this was of course
predating her presentation of a CVA. She is concerned over the lack of sleep with the patient but I did explain to her my reticence to give the patient any sedating medications in the setting of her probable concussion in less than 24 hours will
take up this concern tomorrow with neurology otherwise. Probably best at this time not to transfer her out of her present location of care.
Original Note:
Today's Communication/Plan
-
Continue with PT/OT and ST
Okay for transition to telemetry
Awaiting PMNR reeval for acceptance to [facility]
Assessment / Plan
Assessment / Plan
Patient is an 83-year-old female who history has been obtained through her . Patient said she could not move her right leg earlier today approximately 7:30 in the morning so her gave her 2 Tylenol and Job wrap to the leg and she does
have chronic issues with that. She was doing okay and had no issues swallowing to Tylenol that he gave her and he put her or kept her in bed. Around 1130 he went upstairs and found her on the floor in the bathroom. He stated that she was sitting
on her but trying to scoot out from the bathroom. He he said she told him that she had trouble getting up from the toilet. He noticed a facial droop at that time. EMS was called and the patient was brought to the emergency room.
Patient is an 83-year-old female
Acute CVA--given her right facial droop and complaints of right leg trouble along with a 70% left proximal internal carotid artery stenosis, this is likely an acute stroke-
-also noted on carotid ultrasound
-ADMIT to tele-
-consult neurology--continue aspirin and Plavix--start 20 mg Crestor(describes prior statin induced myalgias)--check lipids-
-check MRI-focal nonhemorrhagic acute infarct in the left denson radiata.
-consult PT/OT/speech
-PM and R consultation noted and awaiting postop recovery
Underwent left carotid endarterectomy/September 27
-symptomatic left internal carotid stenosis and left-sided infarct/appreciate vascular surgery input
-Left forearm ecchymosis presumed from arterial line placement/distal pulses noted/no signs of bleeding or pseudoaneurysm on arterial Doppler imaging.
-Advancing diet as per vascular presently on clears
-Encourage incentive spirometry
-Postop urine retention had Hubbard catheter inserted overnight with postvoid residuals of 700 cc/see how she does with increase activity and eventual void trial
-Also placed consult for PMNR/candidate for acute inpatient rehab but will be reevaluated after carotid surgery
Dysphagia
-Initial question of aspiration component
-Video swallow eval did show mild penetration with thin liquids
-No significant dyspnea or respiratory congestion
-Transition from IDDSI 6 to regular diet
Night of September 28 had Fall trying to get off commode
-Mild head trauma and elbow
-No evidence of any intracranial bleed or skull fracture on CT imaging
-Evidence of cytotoxic edema from prior denson radiata ischemic infarct noted
Hypothyroidism--continue 62.5 mg of Synthroid--check TSH
Essential hypertension-- states blood pressure usually runs 120s over 70s or 80s--continue losartan and metoprolol to/now past. Of permissive hypertension--keep systolic blood pressure less than 180/
Depression/anxiety--continue Celexa
-May also be exhibiting some signs and symptoms of ICU delirium/lack of sleep
Alcohol use--patient drinks 1 drink per day--watch for DTs
DVT prophylaxis--sequential teds
CODE STATUS--full code
Anticipated Discharge: Within 24 hours
Subjective/Interval History
-
Date of Service: September 30, 2023
Noted to be impulsive and overnight nursing took the patient to the bedside commode and was instructed to seek help when getting back up did not and chose to try and get up on her own and fell to the floor striking her elbow and head she denies any
present headache but is exhibiting some confusion and impulsiveness still.
Objective Data
-
Labs:
Laboratory Results
09/30/23
04:28
WBC 12.5 H
Hgb 11.1 L
Hct 32.3 L
Plt Count 157
Sodium 136
Potassium 4.0
Chloride 107
Carbon Dioxide 24
BUN 20 H
Creatinine 0.7
Glucose 101 H
Calcium 9.0
Vital Signs:
Vital Signs
Temp Pulse Resp BP Pulse Ox
98.7 F 89 16 151/74 95
09/30/23 04:50 09/30/23 06:08 09/30/23 06:08 09/30/23 06:08 09/30/23 06:08
I&O
09/29/23 09/30/23 10/01/23
06:59 06:59 06:59
Intake Total 1630 / 1710 880 / 880
Output Total 1005 / 1005 510 / 510
Balance 625 / 705 370 / 370
Review of Systems
-
History Source: Patient
Constitutional: Reports Fatigue and Weakness
EENT: Reports Other (Droop)
Respiratory: Reports No Symptoms
Cardiac: Reports No Symptoms
Psych: Reports Depressed
Physical Exam
-
General: Well Developed
HEENT: Normocephalic
Respiratory: Clear to Auscultation
Cardiac: Regular Rhythm
GI: Soft and Nontender
Genito-urinary: Other (Void trial today catheter out)
Musculoskeletal: Edema, Right Upper Extrem (3-4 out of 5 strength)
Skin: Lesions (Skin tears ecchymoses) and IV Access / Catheter Site
Neuro: Awake
Psych: Confused
Data Reviewed
-
Total Time Spent with Patient (in minutes): 45
CT Scan: Report Reviewed by me (Head CT after fall last night noted no signs of hemorrhage or change from prior/did show evidence of cytotoxic edema from prior left periventricular denson radiata CVA), Discussed with Physician, Discussed with Nurse
and Discussed with Patient
Labs: Labs Reviewed by me (Leukocytosis 12.5 unchanged/chemistries okay)
--- NOTE | 2023-09-30 07:31 | W.PN.NEURO.1 ---
Addendum entered and electronically signed by Aleksey Narayan MD 09/30/23 10:00:
More dysarthria, not as brisk as yesterday. At this point it is highly likely these are effects of a mild concussion from the fall last night in addition to existing ischemic stroke. 2 CT head non contrast studies with no bleeding and stable area
of ischemic infarct.
Symptomatic care treating any headache, continued stroke rehabilitation care
Would continue the existing medication plan as below
Original Note:
Today's Communication / Plan
-
-Goal normotension
-NIH and neurologic checks
-DAPT therapy 21 days then aspirin alone
-Rosuvastatin 20 mg daily
Will sign off call with questions and concerns reconsult as needed
Neuro Assessment/Plan
Assessment
symptomatic left carotid stenosis given right face arm and leg weakness along with aphasia leading to left MCA territory infarct.
s/p left carotid endarterectomy 09/27
Fall the night of 09/29 without loss of consciousness, CT head non contrast no bleeding, saw the known ischemic stroke
Stable neurologic exam morning of 09/29
Subjective/Objective
Subjective Data
Date of Service: September 30, 2023
Had fall last night in trying to get off toilet on her own, did stroke her head and had elbow scrape, no loss of consciousness, CT head obtaindd showed no new findings, no hemorrhage
Objective Data
Vital Signs
Temp Pulse Resp BP Pulse Ox
98.7 F 89 16 151/74 95
09/30/23 04:50 09/30/23 06:08 09/30/23 06:08 09/30/23 06:08 09/30/23 06:08
Lab Results
09/30/23 04:28
09/30/23 04:28
PT 14.4 Sec (11.4-14.6) 09/29/23 03:16
INR 1.11 09/29/23 03:16
APTT 27.3 Sec (23.4-35.0) 09/29/23 03:16
Sodium 136 mmol/L (135-145) 09/30/23 04:28
Potassium 4.0 mmol/L (3.5-5.1) 09/30/23 04:28
BUN 20 mg/dl (7-17) H 09/30/23 04:28
Glucose 101 mg/dl (70-99) H 09/30/23 04:28
Calcium 9.0 mg/dl (8.4-10.2) 09/30/23 04:28
LDL Cholesterol, Calc 106 mg/dl 09/26/23 06:27
Vitamin B12 472 pg/ml (239-931) 09/26/23 06:27
Patient Allergies
No Known Allergies Allergy (Verified 08/23/23 18:08)
Review of Systems
-
History Source: Patient
All other systems: Reviewed and negative
Constitutional: No Symptoms
EENT: No Symptoms Reported
Respiratory: No Symptoms
Abdomen/GI: No Symptoms
Genitourinary: No Symptoms
Musculoskeletal: No Symptoms
Skin: No Symptoms
Neuro: Negative Headache
Endocrine: No Symptoms
Hematologic / Lymphatic: No Symptoms
Allergy / Immunology: No Symptoms
Physical Exam
-
General: Comfortable and Appears Stated Age
Eyes: No Ptosis
HEENT: Other (Left CEA incision clean dry intact)
Neck: No Bruits Bilaterally
Respiratory: Clear to Auscultation
Cardiac: Regular Rhythm
GI: Normal Bowel Sounds
Skin: Unremarkable
Extremities: No Clubbing
Psych: Unremarkable
Extended Neurological Exam
Mood & Affect: Mood Unremarkable
Attention Span & Concentration: Awake, Alert and Interactive
Memory: Unremarkable
Tremor: Hand Tremor Absent
Involuntary Movement: None
Speech: Expressive Aphasia, Receptive Aphasia and Dysarthric
Cranial Nerve II: Left Eye: Pupillary Reactivity Unremarkable and Pupillary Size Unremarkable
Cranial Nerve II: Right Eye: Pupillary Reactivity Unremarkable
Cranial Nerves III, IV, : Extraocular Movement: Extraocular Movement Full in all Directions
Cranial Nerve VIII: Hearing: Unremarkable Hearing to Normal Conversational Volume
Muscle Strength, Overall: Other (Right arm 4/5 arm flexion and shoulder abduction)
Pronator Drift: Drift in Right Upper Extremity
Deep Tendon Reflexes: Trace Throughout
Coordination: [id number] Testing Unremarkable
Data Reviewed
-
CT-A: Report Reviewed and Image Reviewed
CT Head: Report Reviewed and Image Reviewed
MRI Head: Report Reviewed and Image Reviewed
Carotid Ultrasound: Report Reviewed
Echocardiogram: Report Reviewed
[2023-09-30] MEDS: TOPROL XL 25 MG PO (07:54)
[2023-09-30] MEDS: PLAVIX 75 MG PO (07:57)
[2023-09-30] MEDS: LOW STRENGTH ASPIRIN 81 MG PO (07:57)
[2023-09-30] MEDS: COZAAR 100 MG PO (07:57)
[2023-09-30] MEDS: CELEXA 20 MG PO (07:57)
--- NOTE | 2023-09-30 11:08 | PTCARENOTE ---
PT received in bed drowsy, arousable to verbal stimuli, PT is disoriented to place and time, slurred speech, mild aphasia, ROSAS, right side weaker than left, NSR with BBBC, pulse + Doppler, room air 97%, B/L BS diminished, shallow effort, abdomen
soft NT, +BS, Pure wick in place and PT saturated, PT received full CHG bath, linen change, new purewick placed, PT repositioned, NIH at bedside 12, compare to yesterday's 7, notified Neurology, received order for CT scan, PT back in room and
repositioned for comfort, family at bedside, bed alarm on, call polk in place, safe environment provided
[2023-09-30] MEDS: TYLENOL 650 MG PO (13:13)
[2023-09-30] MEDS: ZOFRAN 4 MG IV (13:14)
--- NOTE | 2023-09-30 13:24 | PTCARENOTE ---
PT worked with PT/OT, assisted OOB to chair, chair alarm in place, PT c/o headache and also nausea, notified DR Sheehan, received order for Zofran, administered as ordered, Tylenol given for headache, lights dimmed and PT reclined in chair
attempting to nap, assessment remains unchanged from previous
--- NOTE | 2023-09-30 14:34 | CM ---
CM following rte: discharge planning.
Reviewed pt's chart, met with pt.
PT and OT continue to recommend acute rehab. A referral to [facility] noted. CM spoke to [facility] rehab manager and she confirmed that pt will be accepted as early as Tuesday
[facility]
Dr. King
D/C plan: [facility]. Pt will need an auth from [facility]
CM will follow to assist pt with discharge to [facility].
--- NOTE | 2023-09-30 15:55 | PTCARENOTE ---
Assessment remains unchanged, PT assisted x2 back to bed, incontinent of large amount of urine, Pure wick placed and PT cleaned and brief changed, long discussion with daughters concerning concussion and treatments for symptoms, ex headache, nausea,
explained in detail what a concussion is and steps to alleviate the symptoms of, PT resting in a dark room, no communications, no interactions, family verbalizes understanding
[2023-09-30] MEDS: CRESTOR 20 MG PO (16:35)
--- NOTE | 2023-09-30 16:46 | W.PN.UPDATE ---
Update Note
Progress Note Update
Seen and evaluated. Events of last night noted. Per family - patient with slight waning of overall status (she was more vibrant and lucid yesterday and today less vibrant, slightly confused, and possibly slightly weaker on right side). On exam/
patient is awake, alert, oriented to person/place (i didn't ask time). She was able to answer appropriately questions. Mild expressive aphasia/dysarthria at baseline. Slightly more lethargic. Moves all extremities. Raises right arm/hand to
level of head without assistance. Able to raise right leg off the bed, but perhaps slight weakness (4+/5-).
CT head x 2 negative for bleed.
Plan/ Slight waning of overall status following fall and injury to head overnight. Neurology note reviewed and discussed now via phone with Dr. Narayan. Agree likely a component of concussive injury. No gross/caty neurologic change -- still
intact overall -- to suggest occlusive event. Continue close monitoring. Repeat non contrast CT head in AM. If any further neurologic change, stat CTA head/neck. Discussed with patient family and with neurologist.
[2023-10-01] VITALS (19 sets, daily range): BP systolic 82–162; BP diastolic 49–89; BMI 21.5
[2023-10-01] MEDS: SYNTHROID 50 MCG PO (05:56)
[2023-10-01] MEDS: SYNTHROID 12.5 MCG PO (05:56)
--- NOTE | 2023-10-01 06:48 | W.PN.HOSP.TC ---
Addendum entered and electronically signed by Carlos A Sheehan MD 10/01/23 08:58:
Patient developed A-fib with RVR up to 180s with stable BP still/will give dose of metoprolol 5 mg IV now and then placed on diltiazem drip and await cardiology input had echocardiogram on 25 September was due for a CT of the head probably need to
stabilize rate prior to doing that but given improvement in her neurologic status and mentation this morning doubt CT imaging will be of any change from 2 done yesterday
Original Note:
Today's Communication/Plan
-
Continue with PT/OT
For repeat CT of the head this morning/concussive symptoms seem to be waning
Avoid significant stimulation and allow hours of sleep
Updated family members yesterday and explained concussive syndrome
Spoke to PMNR Dr. Bowers this morning and hope to have bed at [facility] Tuesday
Assessment / Plan
Assessment / Plan
Patient is an 83-year-old female who history has been obtained through her . Patient said she could not move her right leg earlier today approximately 7:30 in the morning so her gave her 2 Tylenol and Job wrap to the leg and she does
have chronic issues with that. She was doing okay and had no issues swallowing to Tylenol that he gave her and he put her or kept her in bed. Around 1130 he went upstairs and found her on the floor in the bathroom. He stated that she was sitting
on her but trying to scoot out from the bathroom. He he said she told him that she had trouble getting up from the toilet. He noticed a facial droop at that time. EMS was called and the patient was brought to the emergency room.
Patient is an 83-year-old female
Acute CVA--given her right facial droop and complaints of right leg trouble along with a 70% left proximal internal carotid artery stenosis, this is likely an acute stroke-
-also noted on carotid ultrasound
-ADMIT to tele-
-consult neurology--continue aspirin and Plavix--start 20 mg Crestor(describes prior statin induced myalgias)--check lipids-
-check MRI-focal nonhemorrhagic acute infarct in the left denson radiata.
-consult PT/OT/speech
-PM and R consultation noted and awaiting postop recovery
Underwent left carotid endarterectomy/September 27
-symptomatic left internal carotid stenosis and left-sided infarct/appreciate vascular surgery input
-Left forearm ecchymosis presumed from arterial line placement/distal pulses noted/no signs of bleeding or pseudoaneurysm on arterial Doppler imaging.
-Advancing diet as per vascular presently on clears
-Encourage incentive spirometry
-Postop urine retention had Hubbard catheter inserted overnight with postvoid residuals of 700 cc/see how she does with increase activity and eventual void trial
-Also placed consult for PMNR/candidate for acute inpatient rehab but will be reevaluated after carotid surgery
Dysphagia
-Initial question of aspiration component
-Video swallow eval did show mild penetration with thin liquids
-No significant dyspnea or respiratory congestion
-Transition from IDDSI 6 to regular diet
Night of September 2 had Fall trying to get off commode/mild concussion clinically
-AM of September 4 seems to be significantly better after some sleep
-Mild head trauma and elbow
-No evidence of any intracranial bleed or skull fracture on CT imaging X2
-Evidence of cytotoxic edema from prior denson radiata ischemic infarct noted
-Vascular surgery ordered another CT of the head this morning/should there be any new abnormality will obtain CTA of the head and neck
Hypothyroidism--continue 62.5 mg of Synthroid--check TSH
Essential hypertension-- states blood pressure usually runs 120s over 70s or 80s--continue losartan and metoprolol to/now past. Of permissive hypertension--keep systolic blood pressure less than 180/
Depression/anxiety--continue Celexa
-May also be exhibiting some signs and symptoms of ICU delirium/lack of sleep
Alcohol use--patient drinks 1 drink per day--watch for DTs
DVT prophylaxis--sequential teds
CODE STATUS--full code
Anticipated Discharge: 24 - 48 hours
Subjective/Interval History
-
Date of Service: October 01, 2023
Looks significantly better this morning she is oriented to time and place and speech is clear presently denies headache
Objective Data
-
Vital Signs:
Vital Signs
Temp Pulse Resp BP Pulse Ox
97.5 F 74 18 162/82 98
09/30/23 19:45 10/01/23 00:36 10/01/23 00:36 10/01/23 00:37 10/01/23 00:36
I&O
09/29/23 09/30/23 10/01/23
06:59 06:59 06:59
Intake Total 1630 / 1710 880 / 880 100 / 100
Output Total 1005 / 1005 510 / 510 1100 / 1100
Balance 625 / 705 370 / 370 -1000 / -1000
Review of Systems
-
History Source: Patient and Family
Constitutional: Reports Sleep Disturbance
Respiratory: Reports No Symptoms
Cardiac: Reports No Symptoms
Abdomen/GI: Reports No Symptoms
Neuro: Reports Headache (Improved)
Physical Exam
-
General: No Apparent Distress and Comfortable
HEENT: Normocephalic
Respiratory: Clear to Auscultation
Cardiac: Regular Rhythm
GI: Soft and Nontender
Neuro: Awake, Oriented, No Motor Deficits (Right arm drift 4 out of 5 strength) and Facial Droop
Psych: Calm and Intact Judgement/Insight
Data Reviewed
-
Total Time Spent with Patient (in minutes): 56
Diagnostic Radiology: Report Reviewed by me (Repeat CT scans of the head x 2 yesterday no evidence of an intracranial bleeding repeat CT head scheduled for this morning)
Labs: Labs Reviewed by me
--- NOTE | 2023-10-01 07:00 | PTCARENOTE ---
VS prior to 0700 cannot not be verified by this RN
--- NOTE | 2023-10-01 07:41 | W.PN.VS ---
Addendum entered and electronically signed by Dennis Gardiner MD 10/01/23 10:58:
Seen and examined. Agree with findings as noted below. Patient with her son-in-law at the bedside. She is without significant complaints this morning. Appears comfortable and more vibrant/awake. Left neck incision clean dry and intact. No
hematoma. Neurologically stable. Dysarthria improved compared to yesterday. Right upper and right lower extremity slightly weaker than left, appear stable overall. Plan/as discussed and noted below. CT scan still not completed.
Original Note:
Today's Communication / Plan
-
Discussed with Dr. Gardiner-he is operating at another hospital this morning and agrees with plan
Assessment/Plan
-
POD3 left CEA
Plan:
-CT noncontrast this morning to follow-up from fall/CVA
-Doing well overall
Subjective Data
-
Date of Service: October 01, 2023
Patient seen at bedside this a.m. currently with no complaints. Patient states she slept through the night and feels much better this morning. Denies nausea, headache, photosensitivity, and fatigue. She is having less trouble finding words this
morning. She was able to tell me where she is and who she is this morning.
Objective Data
-
Vital Signs
Temp Pulse Resp BP Pulse Ox
97.9 F 74 18 162/82 98
10/01/23 07:16 10/01/23 00:36 10/01/23 00:36 10/01/23 00:37 10/01/23 00:36
Intake and Output
09/30/23 10/01/23 10/02/23
06:59 06:59 06:59
Intake Total 880 / 880 100 / 100
Output Total 510 / 510 1100 / 1100
Balance 370 / 370 -1000 / -1000
Intake:
Oral fluids 720 / 720 100 / 100
IV fluids (Total) 160 / 160
Nss 1,000 ml @ 80 mls/hr IV . 160 / 160
[id number] [facility] Rx#:[id number]
Output:
Urine, Hubbard 60 / 60
Urine, Voided 450 / 450 1100 / 1100
Other:
Number of approximated MODERATE 1
amounts of urine
How many times incontinent 1
MODERATE amount urine
How many times incontinent 1
SATURATED amount urine
Lab Results
09/30/23 04:28
09/30/23 04:28
Calcium 9.0 mg/dl (8.4-10.2) 09/30/23 04:28
Magnesium 1.9 mg/dl (1.6-2.3) 09/29/23 03:16
Total Bilirubin 0.7 mg/dl (0.2-1.3) 09/25/23 18:00
AST 33 U/L (14-36) 09/25/23 18:00
ALT 17 U/L (0-35) 09/25/23 18:00
Alkaline Phosphatase 87 U/L (38-126) 09/25/23 18:00
Total Protein 6.3 g/dl (6.3-8.2) 09/25/23 18:00
Albumin 3.8 g/dl (3.5-5.0) 09/25/23 18:00
Physical Exam
-
AAOx3
No tachypnea
No tachycardia
Neck site stable, soft
Moving all extremities, right arm and leg mildly weaker than left
Following all commands easily
--- NOTE | 2023-10-01 08:00 | PTCARENOTE ---
PT received in bed sleeping, PT arousable to voice, slow to wake, once awake AAOx3 pleasant and cooperative, follows all commands, NIH-5, neurovascular checks equal strength, tongue deviated to right, however improved from yesterday, NSR on monitor,
+pulses by Doppler, room air, O2 95%, B/L BS diminished but clear an occasional dry hacking cough, abdomen soft NT, +BS, PT has been incontinent at times of urine and has purewick attached to suction, right FA INT flushed and patent
[2023-10-01] MEDS: TOPROL XL 25 MG PO ×2 (08:38→20:07)
[2023-10-01] MEDS: CELEXA 20 MG PO (08:39)
[2023-10-01] MEDS: LOW STRENGTH ASPIRIN 81 MG PO (08:39)
[2023-10-01] MEDS: COZAAR 100 MG PO (08:39)
[2023-10-01] MEDS: PLAVIX 75 MG PO (08:39)
[2023-10-01] MEDS: CARDIZEM 125 IV (09:13)
[2023-10-01] MEDS: LOPRESSOR 5 MG IV (09:13)
--- NOTE | 2023-10-01 09:43 | PTCARENOTE ---
PT spontaneously went into rapid Afib after getting OOB to Chair, HR as high as 194, notified Dr Guzman, received order Metoprolol % mg IV Now and Cardizem initial rate @ 5 mg/hr, PT denies any complaints at this time, no dizziness, CP,
Lightheadedness, Cardiology consult placed, PT remains OOB eating breakfast
--- NOTE | 2023-10-01 10:44 | CON.CAR ---
Addendum entered and electronically signed by Tiago Verdin MD 10/01/23 13:14:
Patient presented with change in mental status and was diagnosed with left CVA. She was found to have left internal carotid artery stenosis felt to be etiology of her stroke and underwent left CEA by vascular 09/28/2023. She had a fall the evening
of 09/28 with clinical mild concussion. She underwent head CT on 09/29 which did not show acute findings. On 09/30 AM around 8:30 AM patient went into atrial fibrillation with rapid ventricular response which is a new diagnosis for the patient.
Cardiology consulted for evaluation.
She was placed on intravenous Cardizem for heart rate control. Subsequently as she stood she became semiunresponsive, not following commands and with a fixed gaze. It was noted that she became hypotensive with systolic blood pressure of 85/45 and
a heart rate of 120. Subsequently improved to blood pressure of 97/55 in the supine position. Mental status slowly improved to where she was following commands again. Stat CT of the of the head found decreased attenuation in the left denson
radiata new in the interval since recent prior study suggesting late acute versus subacute nonhemorrhagic infarct. Reviewed this with neurology and there is no contraindication to initiating DOAC.
-[id number] score of at least 5 for age, female, HTN, vascular disease (7 if we include CVA). Discussed with vascular and neurology, okay to stop Plavix and start OAC. Continue aspirin. Will add Eliquis 2.5 mg twice daily given age, weight.
-Remains in A-fib with rapid ventricular response at this time.
Continue intravenous Cardizem as blood pressure tolerates, increase Toprol dose from 25 mg daily to 25 mg twice daily as well and follow blood pressure closely
If blood pressure remains an issue, may consider amiodarone instead of intravenous Cardizem.
She may benefit from IV fluids.
Original Note:
Consultation
Consultation Request
Date/Time Consultation Performed: 10/01/23
Requesting Provider: Dr. Sheehan
Performing Provider: Cora Hu PA-C for Dr. Yo Verdin
Reason for Consultation: afib with rvr
Medical History
-
Chief Complaint: change in mental status
History of Present Illness:
Patient is an 83-year-old female with past medical history of chronic left bundle branch block, hypertension, hyperlipidemia with history of statin intolerance, PACs/PVCs, mitral regurgitation who presented due to altered mental status noted by her
. She was found to have evidence of an acute left-sided stroke. By imaging was noted to have significant left internal carotid artery stenosis felt to be culprit of her stroke. She underwent left CEA by vascular on 09/28/2023. On 09/28 had
fall getting off commode with clinical signs of mild concussion. She is for repeat brain imaging this morning. She is on aspirin and Plavix. This morning around 830 she was noted to go into atrial fibrillation with rapid ventricular response,
which is a new diagnosis for patient. She had undergone outpatient awake overnight monitor 05/2022 with no arrhythmia of significance. Cardiology consulted for evaluation. She was started on IV Cardizem gtt. She does not feel palpitations, chest pain,
shortness of breath.
PMH:
Chronic left bundle branch block
Hypertension
Hyperlipidemia with history of statin intolerance
PACs/PVCs
Mitral regurgitation
Asthma
History of hyponatremia
History of DEREK, oophorectomy 2020
Past Medical History
Past Medical History: Other (in HPI)
Social History
Tobacco: Non-Smoker
Personal:
Living: With Family
Employment: Retired
Family History
Family History: Other (CVA)
Allergies / Home Medications
Allergy/AdvReac Type Severity Reaction Status Date / Time
No Known Allergies Allergy Verified 08/23/23 18:08
�Medication �Instructions �Recorded �Confirmed �Type
acetaminophen 325 mg tablet 650 mg PO Q4HPRN PRN knee pains 09/25/23 09/25/23 History
(Tylenol)
citalopram 20 mg tablet (Celexa) 20 mg PO DAILY depression/anxiety 09/25/23 09/25/23 History
levothyroxine 50 mcg tablet 50 mcg PO DAILY Thyroid 09/25/23 09/25/23 History
(Synthroid)
losartan 100 mg tablet 100 mg PO DAILY Blood Pressure 09/25/23 09/25/23 History
metoprolol succinate 25 mg 25 mg PO DAILY Blood Pressure 09/25/23 09/25/23 History
tablet,extended release 24 hr
(Toprol XL)
Review of Systems
-
History Source: Patient and Family
All other systems: Negative unless noted
Physical Exam
Vital Signs
Temp Pulse Resp BP Pulse Ox
97.9 F 133 28 154/82 96
10/01/23 07:16 10/01/23 09:45 10/01/23 09:45 10/01/23 09:13 10/01/23 09:00
Lab Results
09/30/23 04:28
09/30/23 04:28
Troponin I < 0.012 ng/ml 09/25/23 14:44
Physical Exam
General: No Apparent Distress, Comfortable and Other (sitting in chair)
HEENT: Normocephalic, Anicteric, Moist Mucous Membranes and Other (L CEA incision c/d/i with some ngozi incisional ecchymoses in various stages of healing)
Respiratory: Clear and Non Labored Respirations
Cardiac: S1/S2, Irregular Rhythm and Murmur
GI: Soft, Non Tender, Non Distended and Normal Bowel Sounds
Musculoskeletal: No Clubbing, No Cyanosis and No Edema
Skin: Warm and Dry
Neuro: AO x 3
Impression / Plan
-
Primary Subeditor: Dr. Cielo Verdin
Assessment:
Presentation with change in mental status
L CVA
LICA stenosis s/p L CEA 09/28/23
Fall / with clinical mild concussion
Atrial fibrillation with RVR, new diagnosis
Chronic left bundle branch block
Hypertension
Hyperlipidemia with history of statin intolerance
PACs/PVCs
Mitral regurgitation
Asthma
History of hyponatremia
History of DEREK, oophorectomy 2020
Anemia
Prediabetes, hgbA1c 5.9%
Lexiscan nuclear stress test 01/03/23: Probably normal sestamibi perfusion imaging complicated by left breast soft tissue attenuation, EF 75%, no significant change compared to prior study from 2017
ECHO 09/26/23: EF 60 to 65%, mild LVH more prominent at basal septum, mild to moderate MR, MAC, aortic sclerosis, mild AR, mild TR, PAP 20 to 25 mmHg, no significant change compared to prior from 05/2022
Plan:
-Patient presented with change in mental status and was diagnosed with left CVA. She was found to have left internal carotid artery stenosis felt to be etiology of her stroke and underwent left CEA by vascular 09/28/2023. She had a fall the evening
of 09/28 with clinical mild concussion. She underwent head CT on 09/29 which did not show acute findings. On 09/30 AM around 8:30 AM patient went into atrial fibrillation with rapid ventricular response which is a new diagnosis for the patient.
Cardiology consulted for evaluation
-Remains in A-fib with rapid ventricular response at this time. Continue IV Cardizem gtt, uptitrate as blood pressure allows for better heart rate control. Will increase Toprol dose from 25 mg daily to 25 mg twice daily as well
-[id number] score of 5 for age, female, HTN, vascular disease. Discussed with vascular and neurology, okay to stop Plavix and start OAC. Continue aspirin. Will add Eliquis 2.5 mg twice daily given age, weight. Hemoglobin 11.1 on 09/30
-Echocardiogram with results as above
-TSH within normal limits
-She is noted to have history of statin intolerance. We discussed importance of statin acutely. She never started previously prescribed Zetia as OP. Discussed with patient and , could consider for PCSK9 inhibitor as an outpatient
-Discussed with nursing
Data Reviewed
-
EKG: Tracing Personally Visualized and interpreted
CT Scan: Report Reviewed by me
Medical Tests (Nuc Med, Echo etc): Report Reviewed by me
Labs: Labs Reviewed by me
Old Records: Reviewed
--- NOTE | 2023-10-01 11:13 | W.PN.NEURO.1 ---
Today's Communication / Plan
-
-Pursue goal normotension would aim for systolic blood pressure less than 180
Follow orthostatic blood pressures
-Continue aspirin and clopidogrel DAPT therapy for 21 days then aspirin 81 mg thereafter; initial day of symptom onset was 09/25/2023
-Continue rosuvastatin 20 mg daily
We will follow as needed
Neuro Assessment/Plan
Assessment
symptomatic left carotid stenosis given right face arm and leg weakness along with aphasia leading to left MCA territory infarct.
s/p left carotid endarterectomy 09/27
Fall the night of 09/29 without loss of consciousness, CT head non contrast no bleeding, saw the known ischemic stroke
Recurrent episode of change in mental status with the patient upright and working with physical therapy 10/01/2023 most likely secondary to significant blood pressure variability; resultant stroke alert
Plan
Recommendations
-Pursue goal normotension would aim for systolic blood pressure less than 180
Follow orthostatic blood pressures
-Continue aspirin and clopidogrel DAPT therapy for 21 days then aspirin 81 mg thereafter; initial day of symptom onset was 09/25/2023
-Continue rosuvastatin 20 mg daily
We will follow as needed
Subjective/Objective
Subjective Data
Date of Service: October 01, 2023
Patient unable to provide own medical history
Objective Data
Vital Signs
Temp Pulse Resp BP Pulse Ox
36.6 C 133 28 154/82 96
10/01/23 07:16 10/01/23 09:45 10/01/23 09:45 10/01/23 09:13 10/01/23 09:00
Lab Results
09/30/23 04:28
09/30/23 04:28
PT 14.4 Sec (11.4-14.6) 09/29/23 03:16
INR 1.11 09/29/23 03:16
APTT 27.3 Sec (23.4-35.0) 09/29/23 03:16
Sodium 136 mmol/L (135-145) 09/30/23 04:28
Potassium 4.0 mmol/L (3.5-5.1) 09/30/23 04:28
BUN 20 mg/dl (7-17) H 09/30/23 04:28
Glucose 101 mg/dl (70-99) H 09/30/23 04:28
Calcium 9.0 mg/dl (8.4-10.2) 09/30/23 04:28
LDL Cholesterol, Calc 106 mg/dl 09/26/23 06:27
Vitamin B12 472 pg/ml (239-931) 09/26/23 06:27
Patient Allergies
No Known Allergies Allergy (Verified 08/23/23 18:08)
Review of Systems
-
Unable to obtain full review of systems at this time due to: Lethargy
History Source: Patient
All other systems: Reviewed and negative
Physical Exam
-
General: No Apparent Distress and Appears Stated Age
Eyes: No Ptosis
HEENT: Other (Left CEA incision clean dry intact)
Respiratory: Negative Accessory Resp Muscle Use
Cardiac: No JVD
GI: Non-distended
Skin: Other (Ecchymotic changes over left neck)
Extremities: No Clubbing and No Cyanosis
Psych: Unable to Assess
Extended Neurological Exam
Mood & Affect: Mood Unremarkable
Attention Span & Concentration: Awake, Interactive and Closes Eyes after Stimulation (After approximately 5 seconds); Negative Alert
Memory: Unable to Recall Personal History
Tremor: Hand Tremor Absent and Head Tremor Absent
Involuntary Movement: None
Speech: Severely Reduced Output
Cranial Nerve II: Left Eye: Pupillary Size Unremarkable and Visual Johnson Grossly Intact
Cranial Nerve II: Right Eye: Pupillary Size Unremarkable and Visual Johnson Grossly Intact
Cranial Nerves III, IV, : Extraocular Movement: Grossly Intact
Cranial Nerve VIII: Hearing: Unremarkable Hearing to Normal Conversational Volume
Muscle Strength, Overall: Other (Right arm 4/5 arm flexion and shoulder abduction)
Pronator Drift: Drift in Right Upper Extremity; Negative Drift in Left Upper Extremity
Cold Sensation: Unable to Assess
Vibration Sensation: Unable to Assess
Coordination: [id number] Testing Unremarkable
Gait & Station: Unable to Assess
Data Reviewed
-
CT Head: Report Reviewed and Image Reviewed
Labs: Report Reviewed
Reviewed with: Physician and Nurse
Old Records: Summarized
Past History
Past History
ED Past Medical History: CVA, HTN, Hypothyroidism, Psychiatric (Major depression) and Other (left internal carotid stenosis)
ED Past Surgical History: Other (left CEA)
Social History
Tobacco: Non-smoker
Personal:
Living: with family
Employment: Retired
Family History
Family History: Other (Reviewed and noncontributory)
Medications
-
Medications:
Generic Name Dose Route Start Last Admin
Trade Name Freq PRN Reason Stop Dose Admin
Acetaminophen 650 mg 09/25/23 17:17
Acetaminophen 650 Mg Rectal Suppository RECTAL 10/23/23 17:16
Q4HPRN PRN
JOSEPH, mild pain, or temp >100.4F
Acetaminophen 650 mg 09/25/23 17:17 09/30/23 13:13
Acetaminophen 325 Mg Tablet PO 10/23/23 17:16 650 mg
Q4HPRN PRN Administration
JOSEPH, mild pain, or temp >100.4F
Aspirin 81 mg 09/26/23 08:00 10/01/23 08:39
Aspirin 81 Mg Chewable Tablet PO 10/24/23 07:59 81 mg
DAILY LUDMILA Administration
Bisacodyl 10 mg 09/28/23 13:07
Bisacodyl 10 Mg Rectal Suppository RECTAL 10/26/23 13:06
DAILYPRN PRN
constipation
Citalopram Hydrobromide 20 mg 09/26/23 08:00 10/01/23 08:39
Citalopram 20 Mg Tablet PO 10/24/23 07:59 20 mg
DAILY LUDMILA Administration
Clopidogrel Bisulfate 75 mg 09/26/23 08:00 10/01/23 08:39
Clopidogrel 75 Mg Tablet PO 10/24/23 07:59 75 mg
DAILY LUDMILA Administration
Diltiazem HCl 125 mg in 125 mls @ 0 mls/hr 10/01/23 09:00 10/01/23 09:13
Cardizem IV 125 mls
PER PROTOCOL LUDMILA Administration
Protocol
Per Protocol
Levothyroxine Sodium 50 mcg 09/26/23 06:00 10/01/23 05:56
Levothyroxine 50 Mcg Tablet PO 10/24/23 05:59 50 mcg
DAILY@0600 LUDMILA Administration
Levothyroxine Sodium 12.5 mcg 09/26/23 06:00 10/01/23 05:56
Levothyroxine 25 Mcg Tablet PO 10/24/23 05:59 12.5 mcg
DAILY @ 0600 LUDMILA Administration
Losartan Potassium 100 mg 09/26/23 08:00 10/01/23 08:39
Losartan 100 Mg Tablet PO 10/24/23 07:59 100 mg
DAILY LUDMILA Administration
Metoprolol Succinate 25 mg 09/26/23 08:00 10/01/23 08:38
Metoprolol 25 Mg Extended Release Tablet PO 10/24/23 07:59 25 mg
DAILY LUDMILA Administration
Morphine Sulfate 2 mg 09/28/23 13:07
Morphine 2 Mg/Ml Syringe IV 10/12/23 13:06
Q2HPRN PRN
severe pain
Ondansetron HCl 4 mg 09/30/23 13:00 09/30/23 13:14
Ondansetron 4 Mg/2 Ml Vial IV 10/28/23 12:59 4 mg
Q6HPRN PRN Administration
NAUSEA/VOMITING
Oxycodone HCl 5 mg 09/28/23 13:07
Oxycodone 5 Mg Regular Release Tablet PO 10/12/23 13:06
Q4HPRN PRN
moderate pain
Rosuvastatin Calcium 20 mg 09/25/23 18:00 09/30/23 16:35
Rosuvastatin (Crestor) 20 Mg Tablet PO 10/23/23 17:59 20 mg
QPM LUDMILA Administration
Sodium Chloride 0 flush 09/25/23 18:00
Sodium Chloride 0.9% (Flush) Syringe IV 10/23/23 17:59
PER PROTOCOL LUDMILA
--- NOTE | 2023-10-01 11:15 | W.PN.UPDATE ---
Update Note
Progress Note Update
Came to see emergently this patient at the nursing request.
Record reviewed.
Patient developed rapid atrial fibrillation, has been on Cardizem at 15. Heart rate is rapid.
While working with physical therapy after standing up, patient became semi-unresponsive. Not following commands. Fixed gaze.
Her oxygenation throughout was normal.
Blood pressure was as low as 85/45. Heart rate was in the 120s. BP improved to 97/55 with improvement on MS on supine position
Patient was transferred to the bed, placed in the supine position.
Slowly mental status improved. She was following commands. Coughing on demand. Nodding yes and no.
No significant change on her motor deficit compared to prior.
Stat CT chest will be obtained.
Cardizem drip decreased to 10
Bolus of 500 mL of normal saline were given.
bed rest.
Continue with frequent neurological checks
Neurology was informed.
Primary team was informed.
Critical care time 30min
--- NOTE | 2023-10-01 11:45 | PTCARENOTE ---
PT OOB in chair, PT/OT working with PT, Therpist called out for help, PT was obtunded, eyes open, blank stare, not responding to any stimuli, BP 83/64, DR Marin to see PT, Stroke alert called DR Maldonado at bedside, Per Dr Marin, titrate Cardizem
from 15 mg to 10 mg, 500 ml NS bolus, Stat CT head, PT was transferred to CT with [address] Maldonado at bedside, PT's BP increased to 92/75 then 106/78, upon return to room, PT is AAOx3, follows commands, NIH stroke scale 5, as previous
[2023-10-01] MEDS: ELIQUIS 2.5 MG PO ×2 (12:02→20:07)
--- NOTE | 2023-10-01 13:49 | PTCARENOTE ---
PT remains on Cardizem, see work list for titrations, no complaints at this time, assessment remains unchanged, family at bedside
[2023-10-01] MEDS: CRESTOR 20 MG PO (17:25)
--- NOTE | 2023-10-01 21:02 | PTCARENOTE ---
Assumed care of pt at 1900. Pt A/O x2-3--during NIHSS assessment, pt was unsure of the month. Pt with expressive aphasia as well. Able to follow commands and make most needs known. No c/o pain. Able to move all extremities, some weakness noted in
right arm when compared to left arm. See NIHSS and neuro assessment for full details. Pt has been SR/SB on monitor, high 50s-60s. SpO2 spot checked, was 100% on RA. Pt able to take pills whole with sips of gingerale without any issue. Pt has been
favoring her left side (grabbing with left side, holding things with left side, etc), but is able to use right hand and is right handed. Encouraged use of right hand and explained the need for her to try to use her right hand and arm when she can.
Pt then held her cup of gingerale with her right hand. Bedside table placed on right side as well. Pt's in room at beginning of shift (left around 2029), and is also encouraging the use of her right arm. Physical assessment completed, see
nursing shift assessment flowsheet for full details. Pt wanted to go to sleep after left, lights turned out at her request. Door is open and bed alarm is on. Educated pt about the importance of fall precautions, especially now that she is on
Eliquis, was also at bedside during this discussion. Call polk and personal items within reach.
[2023-10-02] VITALS (22 sets, daily range): BP systolic 94–147; BP diastolic 47–85; PULSE 66–69; O2SAT 98–99; BMI 21.6
[2023-10-02] MEDS: SYNTHROID 50 MCG PO (05:04)
[2023-10-02] MEDS: SYNTHROID 12.5 MCG PO (05:04)
[2023-10-02 05:30] LABS: Hematocrit 30.4 % (37.0-47.0); Hemoglobin 10.3 g/dL (12.0-16.0); Mean Corp Hgb Conc. 33.9 g/dL (33.0-37.0); Mean Corpuscular Hgb 30.1 pg (27.0-31.0); Mean Corpuscular Volume 88.9 fL (81.0-99.0); Mean Platelet Volume 9.8 fL (7.4-10.4); Platelet Count 166 10^3/uL (130-400); Red Blood Cell Count 3.42 10^6/uL (4.20-5.40); Red Cell Dist. Width 12.9 % (11.5-14.5); White Blood Cell Count 9.1 10^3/uL (4.8-10.8)
[2023-10-02 05:59] LABS: Blood Urea Nitrogen 13 mg/dl (7-17); Calcium 8.9 mg/dl (8.4-10.2); Carbon Dioxide 26 mmol/L (22-30); Chloride 104 mmol/L (98-107); Estimated Creatinine Clearance 55 ml/min; Glucose 106 mg/dl (70-99); Potassium 3.8 mmol/L (3.5-5.1); Sodium 134 mmol/L (135-145); eGFR > 60.00
--- NOTE | 2023-10-02 06:54 | W.PN.HOSP.TC ---
Today's Communication/Plan
-
Continue metoprolol XL 25 mg twice a day
Dual antiplatelet therapy discontinued in favor of apixaban after PAF
Need to assess PT OT performance now back in sinus rhythm
Continue to monitor neurochecks and NIH score /if can remain stable consideration for [facility] early next week
Assessment / Plan
Assessment / Plan
Patient is an 83-year-old female who history has been obtained through her . Patient said she could not move her right leg earlier today approximately 7:30 in the morning so her gave her 2 Tylenol and Job wrap to the leg and she does
have chronic issues with that. She was doing okay and had no issues swallowing to Tylenol that he gave her and he put her or kept her in bed. Around 1130 he went upstairs and found her on the floor in the bathroom. He stated that she was sitting
on her but trying to scoot out from the bathroom. He he said she told him that she had trouble getting up from the toilet. He noticed a facial droop at that time. EMS was called and the patient was brought to the emergency room.
Patient is an 83-year-old female
Acute CVA--given her right facial droop and complaints of right leg trouble along with a 70% left proximal internal carotid artery stenosis, this is likely an acute stroke-
-also noted on carotid ultrasound
-ADMIT to tele-
-consult neurology--continue aspirin and Plavix--start 20 mg Crestor(describes prior statin induced myalgias)--check lipids-
-check MRI-focal nonhemorrhagic acute infarct in the left denson radiata.
-consult PT/OT/speech
-PM and R consultation noted and awaiting postop recovery
Underwent left carotid endarterectomy/September 27
-symptomatic left internal carotid stenosis and left-sided infarct/appreciate vascular surgery input
-Left forearm ecchymosis presumed from arterial line placement/distal pulses noted/no signs of bleeding or pseudoaneurysm on arterial Doppler imaging.
-Advancing diet as per vascular presently on clears
-Encourage incentive spirometry
-Postop urine retention had Hubbard catheter inserted overnight with postvoid residuals of 700 cc/see how she does with increase activity and eventual void trial
-Also placed consult for PMNR/candidate for acute inpatient rehab but will be reevaluated after carotid surgery
Paroxysmal atrial fibrillation/morning of September 30
-Placed on diltiazem drip>> back in sinus rhythm that evening
-Dual antiplatelet therapy discontinued in favor of anticoagulation with apixaban
-Metoprolol XL dose increased to 25 mg twice daily
-Had episode of unresponsiveness while still in RVR yesterday and presumed from hypotension and continuing diltiazem infusion now off
Dysphagia
-Initial question of aspiration component
-Video swallow eval did show mild penetration with thin liquids
-No significant dyspnea or respiratory congestion
-Transition from IDDSI 6 to regular diet
Night of September 28 had Fall trying to get off commode/mild concussion clinically/resolving and headache on
-AM of September 30 seems to be significantly better after some sleep
-Mild head trauma and elbow(skin tear from fall)
-No evidence of any intracranial bleed or skull fracture on CT imaging X2
-Evidence of cytotoxic edema from prior denson radiata ischemic infarct noted
-Vascular surgery ordered another CT of the head this morning/should there be any new abnormality will obtain CTA of the head and neck
Hypothyroidism--continue 62.5 mg of Synthroid--check TSH
Essential hypertension-- states blood pressure usually runs 120s over 70s or 80s--continue losartan and metoprolol to/now past. Of permissive hypertension--keep systolic blood pressure less than 180/
Depression/anxiety--continue Celexa
-May also be exhibiting some signs and symptoms of ICU delirium/lack of sleep
Alcohol use--patient drinks 1 drink per day--watch for DTs
DVT prophylaxis--sequential teds
CODE STATUS--full code
Anticipated Discharge: 24 - 48 hours
Subjective/Interval History
-
Date of Service: October 02, 2023
Events of yesterday morning and afternoon reviewed discussed with Dr. Marin she had a restful night and actually slept from 9 PM to about 1 AM to 2 AM and presently asleep she converted to sinus rhythm presently denying any headache still some
dysarthria and disorientation
Objective Data
-
Labs:
Laboratory Results
10/02/23
05:16
WBC 9.1
Hgb 10.3 L
Hct 30.4 L
Plt Count 166
Sodium 134 L
Potassium 3.8
Chloride 104
Carbon Dioxide 26
BUN 13
Creatinine 0.7
Glucose 106 H
Calcium 8.9
Vital Signs:
Vital Signs
Temp Pulse Resp BP Pulse Ox
97.0 F 62 20 127/64 100
10/02/23 03:22 10/02/23 06:15 10/02/23 06:15 10/02/23 06:00 10/01/23 20:10
I&O
09/30/23 10/01/23 10/02/23
06:59 06:59 06:59
Intake Total 880 / 880 100 / 100 240 / 240
Output Total 510 / 510 1100 / 1100 600 / 600
Balance 370 / 370 -1000 / -1000 -360 / -360
Review of Systems
-
History Source: Patient and Family
Constitutional: Reports Fatigue
Respiratory: Reports No Symptoms
Cardiac: Reports No Symptoms
Neuro: Reports Weakness (Right side compared to left); Denies Headache
Physical Exam
-
General: No Apparent Distress and Slurred Speech; Negative Fever
HEENT: Normocephalic and Other (Nasolabial droop)
Respiratory: Clear to Auscultation
Cardiac: Regular Rhythm (Back in sinus rhythm) and S1/S2
GI: Soft and Nontender
Neuro: Awake, Alert and Oriented
Psych: Calm
Data Reviewed
-
Total Time Spent with Patient (in minutes): 56
CT Scan: Report Reviewed by me (Repeat CT scan yesterday morning showed decreased attenuation in the left denson radiata which is new compared to prior CT imaging)
Labs: Labs Reviewed by me
[2023-10-02] MEDS: CELEXA 20 MG PO (07:34)
[2023-10-02] MEDS: LOW STRENGTH ASPIRIN 81 MG PO (07:34)
[2023-10-02] MEDS: COZAAR 100 MG PO (07:34)
[2023-10-02] MEDS: ELIQUIS 2.5 MG PO ×2 (07:35→20:47)
[2023-10-02] MEDS: TOPROL XL 25 MG PO ×2 (07:35→20:47)
--- NOTE | 2023-10-02 08:25 | PTCARENOTE ---
Addendum entered by Rin Sandhu RN 10/02/23 18:34:
pt left neck cea site- c/d/i with surgiglue open to air. pt with generalized bruising.
Addendum entered by Rin Sandhu RN 10/02/23 08:34:
pt in nsr with bbb and 1st degree
Original Note:
pt received nih of 5 - completed with off going rn. aox3, able to make needs known. placed on room air sats 98%. all safety precautions in place- bed alarm on and tested for proper function. pt set up with breakfast and oral care. call polk within
reach.
--- NOTE | 2023-10-02 10:43 | W.PN.CARDCBS ---
Today's Communication / Plan
-
Eliquis 2.5 mg twice daily (dose adjusted for age and weight) was initiated October 01, 2023 and she is also maintained on aspirin 81 mg daily
Continue statin and if she develops an intolerance strong consideration for moving towards PCSK9 inhibitor
Impression / Plan
-
Primary Candy Cutter Hand: Dr. Cielo Verdin
Assessment:
Presentation with change in mental status
L CVA
LICA stenosis s/p L CEA 09/28/23
Fall 09/28 with clinical mild concussion
Atrial fibrillation with RVR, new diagnosis
Chronic left bundle branch block
Hypertension
Hyperlipidemia with history of statin intolerance
PACs/PVCs
Mitral regurgitation
Asthma
History of hyponatremia
History of DEREK, oophorectomy 2020
Anemia
Prediabetes, hgbA1c 5.9%
Lexiscan nuclear stress test 01/03/23: Probably normal sestamibi perfusion imaging complicated by left breast soft tissue attenuation, EF 75%, no significant change compared to prior study from 2017
ECHO 09/26/23: EF 60 to 65%, mild LVH more prominent at basal septum, mild to moderate MR, MAC, aortic sclerosis, mild AR, mild TR, PAP 20 to 25 mmHg, no significant change compared to prior from 05/2022
Plan:
She presented with change in mental status, right facial droop and right lower extremity weakness. She was diagnosed with acute left CVA and was diagnosed with significant left internal carotid artery stenosis felt to be the etiology of her stroke.
- Left CEA by vascular 09/28/2023 and neurologically recovering well
Paroxysmal atrial fibrillation diagnosed on October 01, 2023, initially with rapid ventricular rates treated with intravenous Cardizem subsequently spontaneously converting to sinus rhythm. [id number] score of 7 for age, female, HTN, CVA, vascular
disease.
Discussed with vascular surgery as well as neurology and primary service regarding anticoagulation strategy
- Eliquis 2.5 mg twice daily (dose adjusted for age and weight) was initiated October 01, 2023 and she is also maintained on aspirin 81 mg daily
She had a fall the evening of 09/28 with clinical mild concussion. She underwent head CT on 09/29 which did not show acute findings.
As an outpatient patient expressed possible statin intolerance and there was discussion regarding consideration for PCSK9 inhibitor. However present she has been initiated on rosuvastatin 20 mg daily and is tolerating thus far.
-Continue statin and if she develops an intolerance strong consideration for moving towards PCSK9 inhibitor
Total time spent today was 53 minutes in preparing to see the patient, seeing the patient and coordination of care. This included review of recent laboratory evaluations, cardiac testing, imaging studies, primary care records, specialty
consultations, hospital records, as well as personally interviewing and examining the patient, which included discussion of their tests, review/ordering medications, and communicating with other healthcare professionals and also treatment planning
as well as counseling.
Progress Note - Candy Cutter Hand
Subjective
Date of Service: October 02, 2023
She tells me she feels well this morning. No chest pain shortness of breath palpitations or dizziness
Objective
Labs:
10/02/23 05:16
10/02/23 05:16
Labs
Hgb 10.3 g/dL (12.0-16.0) L 10/02/23 05:16
Hct 30.4 % (37.0-47.0) L 10/02/23 05:16
Plt Count 166 10^3/uL (130-400) 10/02/23 05:16
PT 14.4 Sec (11.4-14.6) 09/29/23 03:16
INR 1.11 09/29/23 03:16
APTT 27.3 Sec (23.4-35.0) 09/29/23 03:16
Sodium 134 mmol/L (135-145) L 10/02/23 05:16
Potassium 3.8 mmol/L (3.5-5.1) 10/02/23 05:16
BUN 13 mg/dl (7-17) 10/02/23 05:16
Creatinine 0.7 mg/dL (0.6-1.0) 10/02/23 05:16
Glucose 106 mg/dl (70-99) H 10/02/23 05:16
Vital Signs and I&O:
Vital Signs
Temp Pulse Resp BP Pulse Ox
98.0 F 66 19 130/62 98
10/02/23 07:30 10/02/23 08:00 10/02/23 08:00 10/02/23 08:00 10/02/23 08:00
Vital Signs
Temp Pulse Resp BP Pulse Ox
98.0 F 66 19 130/62 98
10/02/23 07:30 10/02/23 08:00 10/02/23 08:00 10/02/23 08:00 10/02/23 08:00
Intake & Output
09/30/23 10/01/23 10/02/23 10/03/23
06:59 06:59 06:59 06:59
Intake Total 880 / 880 100 / 100 240 / 240
Output Total 510 / 510 1100 / 1100 600 / 600
Balance 370 / 370 -1000 / -1000 -360 / -360
Physical Exam
Physical Exam
On physical exam she appears well, she sitting in the chair smiling.
Heart is regular rate and rhythm with normal S1 and S2, no S3 no S4 3 1/6 apical holosystolic murmur no rubs.
Lungs are clear to auscultation bilaterally without wheezes or rhonchi
Abdomen soft nontender nondistended with normoactive bowel sounds
Extremities no clubbing cyanosis or edema
[2023-10-02] MEDS: SENOKOT-S 1 TABLET PO (11:41)
[2023-10-02] MEDS: CRESTOR 20 MG PO (17:00)
--- NOTE | 2023-10-02 18:34 | PTCARENOTE ---
unlocking brakes on recliner- educated about importance and safety of locks and to not touch. verbalized understanding. pt remains on chair alarm.
[2023-10-02] MEDS: COLACE 100 MG PO (20:47)
[2023-10-03] VITALS (17 sets, daily range): BP systolic 113–163; BP diastolic 54–93; PULSE 61–62; O2SAT 97; BMI 21.9
--- NOTE | 2023-10-03 00:20 | PTCARENOTE ---
Rec'd care of patient at 1915. Patient oob in chair. NIH completed with previous RN. NIH- 3. Oriented x3. MAEx4. Weak in RUE. Right facial droop. Aphasia. NSR with BBB and PACs on tele monitor. Lung sounds cta on RA. Voiding via purewick. No BM.
Left neck incision approximated and lauren. VSS.
[2023-10-03] MEDS: SYNTHROID 12.5 MCG PO (04:28)
[2023-10-03] MEDS: SYNTHROID 50 MCG PO (04:29)
[2023-10-03] MEDS: LOW STRENGTH ASPIRIN 81 MG PO (07:47)
[2023-10-03] MEDS: COLACE 100 MG PO ×2 (07:48→20:44)
[2023-10-03] MEDS: CELEXA 20 MG PO (07:48)
[2023-10-03] MEDS: TOPROL XL 25 MG PO ×2 (07:48→20:44)
[2023-10-03] MEDS: ELIQUIS 2.5 MG PO ×2 (07:49→20:44)
[2023-10-03] MEDS: COZAAR 100 MG PO (07:49)
--- NOTE | 2023-10-03 08:43 | W.PN.VS ---
Today's Communication / Plan
-
- Continue ASA/statin, eliquis per cardiology
- Continue home antihypertensives
- PRN pain control
- OOB, PT/OT
Assessment/Plan
-
POD5 left CEA
Plan:
- Continue ASA/statin, eliquis per cardiology
- Continue home antihypertensives
- PRN pain control
- OOB, PT/OT
Subjective Data
-
Date of Service: October 03, 2023
No acute events overnight. She feels well this morning without any new complaints.
Objective Data
-
Vital Signs
Temp Pulse Resp BP Pulse Ox
98.6 F 66 27 150/71 97
10/03/23 07:24 10/03/23 08:00 10/03/23 08:00 10/03/23 08:00 10/03/23 08:00
Intake and Output
10/02/23 10/03/23 10/04/23
06:59 06:59 06:59
Intake Total 240 / 240
Output Total 600 / 600 625 / 625
Balance -360 / -360 -625 / -625
Intake:
Oral fluids 240 / 240
Output:
Urine, Voided 600 / 600 625 / 625
Other:
Number of approximated MODERATE 1
amounts of urine
How many times incontinent 1
SMALL amount urine
How many times incontinent 2
MODERATE amount urine
Lab Results
10/02/23 05:16
10/02/23 05:16
Calcium 8.9 mg/dl (8.4-10.2) 10/02/23 05:16
Magnesium 2.0 mg/dl (1.6-2.3) 10/02/23 05:16
Total Bilirubin 0.7 mg/dl (0.2-1.3) 09/25/23 18:00
AST 33 U/L (14-36) 09/25/23 18:00
ALT 17 U/L (0-35) 09/25/23 18:00
Alkaline Phosphatase 87 U/L (38-126) 09/25/23 18:00
Total Protein 6.3 g/dl (6.3-8.2) 09/25/23 18:00
Albumin 3.8 g/dl (3.5-5.0) 09/25/23 18:00
Physical Exam
-
Awake, alert, NAD
Regular rate and rhythm
Nonlabored respirations
Left neck incision c/d/i. neck soft without bleeding or hematoma
ROSAS, follows commands, Slight RUE weakness
--- NOTE | 2023-10-03 08:46 | PTCARENOTE ---
pt received from previous rn- aox3, forgetful at times. nih 4. on room air. sinus with bbb and 1st degree on monitor. able to make needs known. bed alarm on tested and functioning. call polk within reach. demonstrated proper use of call polk. no
complaints at this time. left cea site lauren. cdi. pt with generalized bruising. poc discussed with Dr. Campos, all safety precautions in place.
--- NOTE | 2023-10-03 09:19 | W.PN.HOSP.TC ---
Today's Communication/Plan
-
cont PT/OT
consult PM&R for [facility]
Assessment / Plan
Assessment / Plan
Patient is an 83-year-old female
Acute CVA--presenting as right facial droop and complaints of right leg trouble along with a 70% left proximal internal carotid artery stenosis--apprec neuro/vascular--s/p left CEA--MRI focal nonhemorrhagic acute infarct in the left denson
radiata--consult PM&R for Cecil eval--cont PT/OT--cont crestor (describes prior statin induced myalgias)
s/p left carotid endarterectomy/September 27 for symptomatic left internal carotid stenosis and left-sided infarct/appreciate-- vascular surgery input--Left forearm ecchymosis presumed from arterial line placement/distal pulses noted/no signs of bleeding
or pseudoaneurysm on arterial Doppler imaging--Encourage incentive spirometry--Postop urine retention had Hubbard catheter inserted with postvoid residuals of 700 cc --eventual void trial
Paroxysmal atrial fibrillation/morning of September 30--Placed on diltiazem drip>> back in sinus rhythm that evening--Dual antiplatelet therapy discontinued in favor of anticoagulation with apixaban--Metoprolol XL dose increased to 25 mg twice daily--Had
episode of unresponsiveness while in RVR and presumed from hypotension and diltiazem infusion now off
Dysphagia--Initial question of aspiration component--Video swallow eval did show mild penetration with thin liquids--No significant dyspnea or respiratory congestion--Transition from IDDSI 6 to regular diet
Night of September 28 had Fall trying to get off commode/mild concussion clinically/resolving--Mild head trauma and elbow(skin tear from fall)--No evidence of any intracranial bleed or skull fracture on CT imaging X2--Evidence of cytotoxic edema from prior
denson radiata ischemic infarct noted--third CT of the head showed late vs acute nonhemorrhagic infarct
Hypothyroidism--continue 62.5 mg of Synthroid
Essential hypertension-- states blood pressure usually runs 120s over 70s or 80s--continue losartan and metoprolol--keep systolic blood pressure less than 180
Depression/anxiety--continue Celexa--May also be exhibiting some signs and symptoms of ICU delirium/lack of sleep
Alcohol use--patient drinks 1 drink per day--watch for DTs
DVT prophylaxis--sequential teds
CODE STATUS--full code
Anticipated Discharge: > 48 hours
Subjective/Interval History
-
Date of Service: October 03, 2023
pt with right facial droop and post op changes to left neck
Objective Data
-
Vital Signs:
max temp for 24 hours
10/03/23
07:24
Temp 98.6 F
Vital Signs
Temp Pulse Resp BP Pulse Ox
98.6 F 66 27 150/71 97
10/03/23 07:24 10/03/23 08:00 10/03/23 08:00 10/03/23 08:00 10/03/23 08:00
I&O
10/02/23 10/03/23 10/04/23
06:59 06:59 06:59
Intake Total 240 / 240
Output Total 600 / 600 625 / 625
Balance -360 / -360 -625 / -625
Review of Systems
-
All other systems: Reviewed and negative
Physical Exam
-
General: Appears Chronically Ill
HEENT: Normocephalic; Negative Atraumatic (bruising with healing scar left neck from CEA)
Respiratory: Clear to Auscultation; Negative Wheezes or Rhonchi
Cardiac: Regular Rhythm and S1/S2; Negative Murmur
GI: Soft, Nontender, Nondistended and Normal Bowel Sounds
Musculoskeletal: No Clubbing, No Cyanosis and No Edema
Skin: Warm
Neuro: Awake and Alert
Psych: Calm
--- NOTE | 2023-10-03 10:21 | W.PN.CARDCBS ---
Today's Communication / Plan
-
Cardiac stable with no further A-fib
From a cardiac point of view continue Eliquis
Lipid-lowering with goal LDL less than 70
Blood pressure control continue current medicines
Impression / Plan
-
Primary Hydrate Thickener Operator: Dr. Cielo Verdin
Assessment:
Presentation with change in mental status
L CVA
LICA stenosis s/p L CEA 09/28/23
Fall 09/28 with clinical mild concussion
Atrial fibrillation with RVR, new diagnosis
Chronic left bundle branch block
Hypertension
Hyperlipidemia with history of statin intolerance
PACs/PVCs
Mitral regurgitation
Asthma
History of hyponatremia
History of DEREK, oophorectomy 2020
Anemia
Prediabetes, hgbA1c 5.9%
Lexiscan nuclear stress test 01/03/23: Probably normal sestamibi perfusion imaging complicated by left breast soft tissue attenuation, EF 75%, no significant change compared to prior study from 2017
ECHO 09/26/23: EF 60 to 65%, mild LVH more prominent at basal septum, mild to moderate MR, MAC, aortic sclerosis, mild AR, mild TR, PAP 20 to 25 mmHg, no significant change compared to prior from 05/2022
Plan:
She presented with change in mental status, right facial droop and right lower extremity weakness. She was diagnosed with acute left CVA and was diagnosed with significant left internal carotid artery stenosis felt to be the etiology of her stroke.
- Left CEA by vascular 09/28/2023 and neurologically recovering well
Paroxysmal atrial fibrillation diagnosed on October 01, 2023, initially with rapid ventricular rates treated with intravenous Cardizem subsequently spontaneously converting to sinus rhythm. [id number] score of 7 for age, female, HTN, CVA, vascular
disease.
Discussed with vascular surgery as well as neurology and primary service regarding anticoagulation strategy
- Eliquis 2.5 mg twice daily (dose adjusted for age and weight) was initiated October 01, 2023 and she is also maintained on aspirin 81 mg daily
She had a fall the evening of 09/28 with clinical mild concussion. She underwent head CT on 09/29 which did not show acute findings.
As an outpatient patient expressed possible statin intolerance and there was discussion regarding consideration for PCSK9 inhibitor. However present she has been initiated on rosuvastatin 20 mg daily and is tolerating thus far.
-Continue statin and if she develops an intolerance strong consideration for moving towards PCSK9 inhibitor
Hypertension
-On treatment as an outpatient. Continue current treatment and adjust as needed.
Progress Note - Hydrate Thickener Operator
Subjective
Date of Service: October 03, 2023
Denies chest pain, palpitations. She is worried about her health status.
Objective
Labs:
10/02/23 05:16
10/02/23 05:16
Labs
Hgb 10.3 g/dL (12.0-16.0) L 10/02/23 05:16
Hct 30.4 % (37.0-47.0) L 10/02/23 05:16
Plt Count 166 10^3/uL (130-400) 10/02/23 05:16
PT 14.4 Sec (11.4-14.6) 09/29/23 03:16
INR 1.11 09/29/23 03:16
APTT 27.3 Sec (23.4-35.0) 09/29/23 03:16
Sodium 134 mmol/L (135-145) L 10/02/23 05:16
Potassium 3.8 mmol/L (3.5-5.1) 10/02/23 05:16
BUN 13 mg/dl (7-17) 10/02/23 05:16
Creatinine 0.7 mg/dL (0.6-1.0) 10/02/23 05:16
Glucose 106 mg/dl (70-99) H 10/02/23 05:16
Vital Signs and I&O:
Vital Signs
Temp Pulse Resp BP Pulse Ox
98.6 F 66 27 150/71 97
10/03/23 07:24 10/03/23 08:00 10/03/23 08:00 10/03/23 08:00 10/03/23 08:00
Vital Signs
Temp Pulse Resp BP Pulse Ox
98.6 F 66 27 150/71 97
10/03/23 07:24 10/03/23 08:00 10/03/23 08:00 10/03/23 08:00 10/03/23 08:00
Intake & Output
10/01/23 10/02/23 10/03/23 10/04/23
06:59 06:59 06:59 06:59
Intake Total 100 / 100 240 / 240
Output Total 1100 / 1100 600 / 600 625 / 625
Balance -1000 / -1000 -360 / -360 -625 / -625
Physical Exam
Physical Exam
General: Well developed, well nourished in NAD.
Heart: Non displaced PMI, RRR, no murmurs, No S3, S4, no rubs.
Lungs: Clear to auscultation anteriorly bilaterally, no wheeze, rhonchi, rubs bilaterally,
Extremities: No clubbing, cyanosis or edema bilaterally.
Neuro:, Right facial droop
--- NOTE | 2023-10-03 14:38 | CM ---
CM following rte: discharge planning.
Reviewed pt's chart, met with pt. Pt's and daughter Chiquita at bedside.
PT and OT continue to recommend acute rehab.
[facility] following.
[facility]
Dr. King
D/C plan: [facility]. Pt will need an auth from [facility]
CM will follow to assist pt with discharge to [facility].
--- NOTE | 2023-10-03 17:01 | W.PN.REHAB ---
Addendum entered and electronically signed by Truman King MD 10/04/23 09:49:
Discharge plan: acute inpatient rehabilitation.
Original Note:
Today's Communication / Plan
-
CVA: Continue aspirin and Eliquis (for recent A-fib. (SBP less than 180 and diastolic less than 100 to participate with therapy for ischemic stroke). Continue to monitor neurologic status.
Right dominant hemiparesis, apraxia: High risk for falls and sliding out of chair/bed. Safety reinforced.
- Avoid using affected arm to help lift or pull patient as this will cause trauma to the shoulder.
Right Neglect: makes patient at increased risk for falls.� Will need therapy to work on scanning of environment for safe navigation.
Dysphagia: speech, oral care protocol, aspiration precautions.� Advanced to regular diet.
Dysarthria: speech
Aphasia: speech
Pain: acetaminophen as needed. Would stop oxycodone with recent concussion and stroke which can make cognition worse.
Assessment/Function
-
Assessment:
General Appearance/Observation: Well-developed, well-nourished female in no apparent distress.
Pain/Comfort Assessment: Denies
Mood/Affect: Slightly flat
Integumentary/Operative Site: Multiple bruises over arms and legs. Left CEA incision healing well with no erythema or drainage. Mild ecchymosis over left neck.
�� Pressure Ulcer Evaluation: absent over heels.
Eyes: Conjunctiva/Lids: normal ��� Pupils: pupils equal round and reactive to light and Accommodation
Ears/Nose/Throat: oral mucosa moist,� throat clear.������������ Lips/Teeth/Gums: normal
Neck: No muscle spasm or tenderness
Cardiovascular: Heart: regular, no murmur
Pulses: dorsalis pedis 2+ bilaterally
Respiratory: Respiratory Effort/Chest Expansion: normal ������ Auscultation: Clear to auscultation bilaterally
Gastrointestinal: abdomen not tender, no distension, normal abdominal bowel sounds
Genitourinary: No Hubbard
Extremities: Edema: None Cyanosis: None Trophic changes: None
Neurology Exam:
Orientation: Alert, Oriented to self, hospital, 2023 but not month or day of the week. Unable to name the president. 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
Memory: Impaired
Repetition: Intact
Comprehension: Intact
Two step command: Impaired
Naming: Intact
-Able to read correct time on the analog clock across the room.
-Inattention to the right
Cranial Nerves:
�� CNII: Pupillary light reflex: Intact��� Visual Field: Intact
�� CN III, IV, : Extraocular muscles: Intact
�� CN V: Facial Sensation at Forehead: Intact, Maxilla: Intact, Mandible: Intact
�� CN VII: Facial movement: Decreased on right
�� CN VIII: Hearing: Normal
�� CN IX/X: Speech & swallow: Expressive aphasia, mild dysarthria position of Uvula: Midline
�� CN XI: Shoulder shrug: Decreased on right
�� CN XII: Tongue protrusion: Midline
Sensory:
�� Light touch: Intact in bilateral upper and lower extremities, extinction to double simultaneous stimulation on the right
Reflexes:
�� Biceps: 2+ bilaterally
�� Brachioradialis: 2+ bilaterally
�� Triceps: 2+ bilaterally
�� Patellar: 2+ bilaterally
�� Achilles: 2+ bilaterally
�� Babinski: Down going bilaterally
�� Clonus: None
�� Martir: Negative bilaterally
Cerebellar: Dysmetria/Ataxia: None on the left, difficult on the right with not tracking past midline/inattention on the right
Musculoskeletal:Motor: (Manual muscle scale 0-5)
Muscle SA EF WE EE FF FA HF KE DF EHL PF
Right� 3+ 2+ 4 4 4 4 2+ 5 4 4 4
Left 4 5 5 5 5 5 4 5 5 5 5
Tone: Normal in all extremities
Range of Motion: Passively within normal limits in all extremities
Function:
Bed Mobility: Min assist
Transfers: Mod assist
Ambulation: Max assist ambulating 20 feet x 1
Steps:
ADL's: Mod assist
Plan
-
Assessment
83-year-old right-handed woman with PMH of ( hypertension, depression, anxiety, hypothyroidism presented to hospital as a stroke alert due to right-sided arm and face weakness along with aphasia. She was outside the time window for thrombolytic
symptoms.MRI of brain shows -a focal nonhemorrhagic acute infarct in the left denson radiata. Carotid ultrasound: 50 to 69% stenosis on the left and less than 50% on the right. Right carotid endarterectomy (09/28/2023). Patient had a fall with
change in mental status with negative repeat CT scans. Possible postconcussive symptoms. Had swallow evaluation and some dysphagia requiring adjusted diet. Developed A-fib with RVR and started on Eliquis.
Plan
PT/OT to increase independence with ADLs, improve balance, coordination, endurance, strength, mobility, community reintegration, decreased burden of care on others and family education.
CVA: Continue aspirin and Eliquis (for recent A-fib. (SBP less than 180 and diastolic less than 100 to participate with therapy for ischemic stroke). Continue to monitor neurologic status.
Right dominant hemiparesis, apraxia: High risk for falls and sliding out of chair/bed. Safety reinforced.
- Avoid using affected arm to help lift or pull patient as this will cause trauma to the shoulder.
Right Neglect: makes patient at increased risk for falls.� Will need therapy to work on scanning of environment for safe navigation.
Dysphagia: speech, oral care protocol, aspiration precautions.� Advanced to regular diet.
Dysarthria: speech
Aphasia: speech
HTN: Metoprolol, Losartan 100 mg. monitor closely
HLD: Rosuvastatin
A-fib with RVR: Eliquis, metoprolol rate control.
Hypothyroidism: levothyroxine 50 mcg and 12.5mg
Psych: Psychology consult.�Celexa 20 mg daily. Monitor mood, adjust medications as needed.
Skin: monitor for pressure sores/rashes/lesions.
Pain: acetaminophen as needed. Would stop oxycodone with recent concussion and stroke which can make cognition worse.
Bowel: Colace and Senna, PRN bisacodyl.
Bladder: Time void, PVRs, PRN straight cath.
Alcohol use--patient drinks 1 drink per day
DVT Prophylaxis: Mechanical
Pulmonary: Incentive spirometry
Safety: Continue to reinforce assistance with all transfers.
Code Status:� Full code
Dispo (date/plan/equipment needs): Home with family care.� Social history reviewed.
A total of 50 minutes were spent with the patient preparing for the evaluation, obtaining history, performing examination and evaluation, counseling, data review, case management, care coordination, parts order and stock clerk, and EMR documentation.
Subjective
-
Date of Service: October 03, 2023
Patient Complaints: Patient seen and examined today. Overall continues to make progress. Still having some difficulty getting out words. Still having trouble with walking. Denies any vision concerns, difficulty swallowing, numbness or tingling.
Denies any fevers, chills, chest pain, shortness of breath, nausea, vomiting, abdominal pain, difficulty urinating, or bowel concerns. Tolerating therapy.
Vital Signs / Labs
-
Vital Signs and Labs:
Temp Pulse Resp BP Pulse Ox
97.4 F 63 16 153/69 96
10/03/23 16:58 10/03/23 16:58 10/03/23 16:58 10/03/23 16:58 10/03/23 16:58
10/02/23 05:16
10/02/23 05:16
[2023-10-03] MEDS: CRESTOR 20 MG PO (17:11)
--- NOTE | 2023-10-03 17:47 | PTCARENOTE ---
Received patient at 1645 from ICU. Patient AAOx3, with mild garbled speech and slow response. Bed alarm maintained, family at bedside, call polk in reach.
[2023-10-04] VITALS (10 sets, daily range): BP systolic 99–172; BP diastolic 61–84; PULSE 64–91; O2SAT 96
[2023-10-04] MEDS: SYNTHROID 12.5 MCG PO (06:26)
[2023-10-04] MEDS: SYNTHROID 50 MCG PO (06:26)
[2023-10-04 06:58] LABS: Hematocrit 29.8 % (37.0-47.0); Hemoglobin 10.4 g/dL (12.0-16.0); Mean Corp Hgb Conc. 34.9 g/dL (33.0-37.0); Mean Corpuscular Hgb 30.5 pg (27.0-31.0); Mean Corpuscular Volume 87.4 fL (81.0-99.0); Mean Platelet Volume 9.9 fL (7.4-10.4); Platelet Count 230 10^3/uL (130-400); Red Blood Cell Count 3.41 10^6/uL (4.20-5.40); Red Cell Dist. Width 12.5 % (11.5-14.5)
[2023-10-04 07:21] LABS: Blood Urea Nitrogen 13 mg/dl (7-17); Calcium 9.1 mg/dl (8.4-10.2); Carbon Dioxide 26 mmol/L (22-30); Chloride 104 mmol/L (98-107); Estimated Creatinine Clearance 55 ml/min; Glucose 98 mg/dl (70-99); Magnesium 1.9 mg/dl (1.6-2.3); Potassium 3.9 mmol/L (3.5-5.1); Sodium 132 mmol/L (135-145); eGFR > 60.00
[2023-10-04] MEDS: LOW STRENGTH ASPIRIN 81 MG PO (09:45)
[2023-10-04] MEDS: ELIQUIS 2.5 MG PO ×2 (09:46→21:08)
[2023-10-04] MEDS: CELEXA 20 MG PO (09:48)
[2023-10-04] MEDS: COLACE 100 MG PO ×2 (09:48→21:08)
[2023-10-04] MEDS: TOPROL XL 25 MG PO ×2 (09:49→21:08)
[2023-10-04] MEDS: COZAAR 100 MG PO (09:51)
--- NOTE | 2023-10-04 10:29 | W.PN.HOSP.TC ---
Today's Communication/Plan
-
d/c to [facility] when auth available
Assessment / Plan
Assessment / Plan
Patient is an 83-year-old female
Acute CVA--presenting as right facial droop and complaints of right leg trouble along with a 70% left proximal internal carotid artery stenosis--apprec neuro/vascular--s/p left CEA--MRI focal nonhemorrhagic acute infarct in the left denson
radiata--apprec PM&R--cont PT/OT--cont crestor (describes prior statin induced myalgias)--medically stable for [facility]
s/p left carotid endarterectomy/September 27 for symptomatic left internal carotid stenosis and left-sided infarct/appreciate-- vascular surgery input--Left forearm ecchymosis presumed from arterial line placement/distal pulses noted/no signs of bleeding
or pseudoaneurysm on arterial Doppler imaging--Encourage incentive spirometry--Postop urine retention had Hubbard catheter inserted with postvoid residuals of 700 cc --eventual void trial
Paroxysmal atrial fibrillation/morning of September 30--Placed on diltiazem drip>> back in sinus rhythm that evening--Dual antiplatelet therapy discontinued in favor of anticoagulation with apixaban--Metoprolol XL dose increased to 25 mg twice daily--Had
episode of unresponsiveness while in RVR and presumed from hypotension and diltiazem infusion now off
Dysphagia--Initial question of aspiration component--Video swallow eval did show mild penetration with thin liquids--No significant dyspnea or respiratory congestion--Transition from IDDSI 6 to regular diet
Night of September 28 had Fall trying to get off commode/mild concussion clinically/resolving--Mild head trauma and elbow (skin tear from fall)--No evidence of any intracranial bleed or skull fracture on CT imaging X2--Evidence of cytotoxic edema from
prior denson radiata ischemic infarct noted--third CT of the head showed late vs acute nonhemorrhagic infarct
Hypothyroidism--continue 62.5 mg of Synthroid
Essential hypertension-- states blood pressure usually runs 120s over 70s or 80s--continue losartan and metoprolol--keep systolic blood pressure less than 180
Depression/anxiety--continue Celexa--May also be exhibiting some signs and symptoms of ICU delirium/lack of sleep
Alcohol use--patient drinks 1 drink per day--watch for DTs
DVT prophylaxis--sequential teds
CODE STATUS--full code
Anticipated Discharge: Today
Subjective/Interval History
-
Date of Service: October 04, 2023
pt without c/o
Objective Data
-
Labs:
Laboratory Results
10/04/23
05:54
WBC 8.0
Hgb 10.4 L
Hct 29.8 L
Plt Count 230 D
Sodium 132 L
Potassium 3.9
Chloride 104
Carbon Dioxide 26
BUN 13
Creatinine 0.7
Glucose 98
Calcium 9.1
Vital Signs:
max temp for 24 hours
10/04/23
07:05
Temp 99 F
Vital Signs
Temp Pulse Resp BP Pulse Ox
99 F 66 16 141/69 96
10/04/23 07:05 10/04/23 09:49 10/04/23 07:05 10/04/23 09:49 10/04/23 07:05
I&O
10/03/23 10/04/23 10/05/23
06:59 06:59 06:59
Intake Total 580 / 580
Output Total 625 / 625
Balance -625 / -625 580 / 580
Review of Systems
-
All other systems: Reviewed and negative
Physical Exam
-
General: Well Developed, Well Nourished and No Apparent Distress
HEENT: Normocephalic, Atraumatic and Other (left neck (carotid) bruising)
Respiratory: Clear to Auscultation; Negative Wheezes or Rhonchi
Cardiac: Regular Rhythm and S1/S2; Negative Murmur
GI: Soft, Nontender, Nondistended and Normal Bowel Sounds
Musculoskeletal: No Clubbing, No Cyanosis and No Edema
Neuro: Awake and Facial Droop
[2023-10-04] MEDS: DULCOLAX 10 MG RECTAL (14:08)
--- NOTE | 2023-10-04 14:16 | W.PN.UPDATE ---
Update Note
Progress Note Update
tele overnight reviewed. remains in SR without recurrences of afib. continue toprol 25mg BID, asa 81mg daily, and eliquis 2.5mg BID. plan for [facility] when auth acquired. OP cardiac follow up arranged. will sign off, please call with questions.
--- NOTE | 2023-10-04 15:26 | CM ---
Discharge Plan of Care: Therapy recommendation for Acute Rehab. [facility] has accepted. Will need insurance auth with [facility].
[2023-10-04] MEDS: CRESTOR 20 MG PO (17:33)
[2023-10-05] VITALS (8 sets, daily range): BP systolic 94–153; BP diastolic 56–77; PULSE 65–85; O2SAT 96
[2023-10-05 05:46] LABS: Hematocrit 31.2 % (37.0-47.0); Hemoglobin 10.6 g/dL (12.0-16.0); Mean Corpuscular Hgb 29.9 pg (27.0-31.0); Mean Corpuscular Volume 87.9 fL (81.0-99.0); Mean Platelet Volume 9.5 fL (7.4-10.4); Platelet Count 221 10^3/uL (130-400); Red Blood Cell Count 3.55 10^6/uL (4.20-5.40); Red Cell Dist. Width 12.5 % (11.5-14.5); White Blood Cell Count 10.2 10^3/uL (4.8-10.8)
[2023-10-05 06:11] LABS: Blood Urea Nitrogen 14 mg/dl (7-17); Calcium 9.2 mg/dl (8.4-10.2); Carbon Dioxide 26 mmol/L (22-30); Chloride 104 mmol/L (98-107); Estimated Creatinine Clearance 55 ml/min; Glucose 101 mg/dl (70-99); Potassium 3.8 mmol/L (3.5-5.1); Sodium 131 mmol/L (135-145); eGFR > 60.00
[2023-10-05] MEDS: SYNTHROID 12.5 MCG PO (06:31)
[2023-10-05] MEDS: SYNTHROID 50 MCG PO (06:31)
--- NOTE | 2023-10-05 08:51 | W.PN.HOSP.TC ---
Today's Communication/Plan
-
stable for [facility]
Assessment / Plan
Assessment / Plan
Patient is an 83-year-old female
Acute CVA--presenting as right facial droop and complaints of right leg trouble along with a 70% left proximal internal carotid artery stenosis--apprec neuro/vascular--s/p left CEA--MRI focal nonhemorrhagic acute infarct in the left denson
radiata--apprec PM&R--cont PT/OT--cont crestor (describes prior statin induced myalgias)--medically stable for [facility] rehab
symptomatic orthostatics--PT checking again today--may need med adjustment
s/p left carotid endarterectomy/September 27 for symptomatic left internal carotid stenosis and left-sided infarct/appreciate-- vascular surgery input--Left forearm ecchymosis presumed from arterial line placement/distal pulses noted/no signs of bleeding
or pseudoaneurysm on arterial Doppler imaging--Encourage incentive spirometry--Postop urine retention had Hubbard catheter inserted with postvoid residuals of 700 cc --eventual void trial
Paroxysmal atrial fibrillation/morning of September 30--Placed on diltiazem drip>> back in sinus rhythm that evening--Dual antiplatelet therapy discontinued in favor of anticoagulation with apixaban/asa--Metoprolol XL dose increased to 25 mg twice
daily--Had episode of unresponsiveness while in RVR and presumed from hypotension and diltiazem infusion now off
Dysphagia--Initial question of aspiration component--Video swallow eval did show mild penetration with thin liquids--No significant dyspnea or respiratory congestion--Transition from IDDSI 6 to regular diet
Night of September 28 had Fall trying to get off commode/mild concussion clinically/resolving--Mild head trauma and elbow (skin tear from fall)--No evidence of any intracranial bleed or skull fracture on CT imaging X2--Evidence of cytotoxic edema from
prior denson radiata ischemic infarct noted--third CT of the head showed late vs acute nonhemorrhagic infarct
Hypothyroidism--continue 62.5 mg of Synthroid
Essential hypertension-- states blood pressure usually runs 120s over 70s or 80s--continue losartan and metoprolol--keep systolic blood pressure less than 180
Depression/anxiety--continue Celexa--May also be exhibiting some signs and symptoms of ICU delirium/lack of sleep
Alcohol use--patient drinks 1 drink per day--watch for DTs
DVT prophylaxis--sequential teds
CODE STATUS--full code
Anticipated Discharge: Today
Subjective/Interval History
-
Date of Service: October 05, 2023
pt working with PT/OT/speech
PT notified me that pt was orthostatic yesterday
Objective Data
-
Labs:
Laboratory Results
10/05/23
05:30
WBC 10.2
Hgb 10.6 L
Hct 31.2 L
Plt Count 221
Sodium 131 L
Potassium 3.8
Chloride 104
Carbon Dioxide 26
BUN 14
Creatinine 0.7
Glucose 101 H
Calcium 9.2
Vital Signs:
max temp for 24 hours
10/04/23
23:00
Temp 99.6 F
Vital Signs
Temp Pulse Resp BP Pulse Ox
98.4 F 70 18 151/74 98
10/05/23 07:05 10/05/23 07:05 10/05/23 07:05 10/05/23 07:05 10/05/23 07:05
I&O
10/04/23 10/05/23 10/06/23
06:59 06:59 06:59
Intake Total 580 / 580 1020 / 1020
Balance 580 / 580 1020 / 1020
Review of Systems
-
All other systems: Reviewed and negative
Physical Exam
-
General: Well Developed, Well Nourished and No Apparent Distress
HEENT: Normocephalic; Negative Atraumatic (left neck s/p CEA)
Respiratory: Clear to Auscultation; Negative Wheezes or Rhonchi
Cardiac: Regular Rhythm and S1/S2; Negative Murmur
GI: Soft, Nontender, Nondistended and Normal Bowel Sounds
Musculoskeletal: No Clubbing, No Cyanosis and No Edema
Neuro: Awake
--- NOTE | 2023-10-05 09:16 | W.PN.UPDATE ---
Update Note
Progress Note Update
Seen and examined. Patient doing well, no events noted. Patient is without complaints. Left neck incision is clean dry and intact. No hematoma. Neurologically improved right upper and lower extremity weakness. Ability to raise right arm to the
level of head spontaneously improved. Speech is actually more fluent.
Plan/stable neurologically. PT/OT/placement. Will sign off. Please call with questions. Can follow-up in the office as scheduled.
[2023-10-05] MEDS: LOW STRENGTH ASPIRIN 81 MG PO (09:22)
[2023-10-05] MEDS: ELIQUIS 2.5 MG PO ×2 (09:22→20:16)
[2023-10-05] MEDS: CELEXA 20 MG PO (09:22)
[2023-10-05] MEDS: TOPROL XL 25 MG PO ×2 (09:22→20:17)
[2023-10-05] MEDS: COLACE 100 MG PO ×2 (09:22→20:17)
[2023-10-05] MEDS: COZAAR PO (09:27)
[2023-10-05] MEDS: COZAAR 50 MG PO (10:09)
--- NOTE | 2023-10-05 10:33 | CM ---
Received [employer] insurance pending Case # [id number]. Requested documents faxed to [phone].
[2023-10-05] MEDS: CRESTOR 20 MG PO (17:09)
[2023-10-06 03:24] VITALS: BP 147/65
[2023-10-06] MEDS: SYNTHROID 12.5 MCG PO (05:51)
[2023-10-06] MEDS: SYNTHROID 50 MCG PO (05:52)
[2023-10-06 07:10] VITALS: BP 156/73
--- NOTE | 2023-10-06 08:15 | W.PN.HOSP.TC ---
Today's Communication/Plan
-
waiting for d/c
Assessment / Plan
Assessment / Plan
Patient is an 83-year-old female
Acute CVA--presenting as right facial droop and complaints of right leg trouble along with a 70% left proximal internal carotid artery stenosis--apprec neuro/vascular--s/p left CEA--MRI focal nonhemorrhagic acute infarct in the left denson
radiata--apprec PM&R--cont PT/OT--cont crestor (describes prior statin induced myalgias)--medically stable for [facility]
symptomatic orthostatics--cut losartan in 05/31--recheck
s/p left carotid endarterectomy/September 27 for symptomatic left internal carotid stenosis and left-sided infarct/appreciate-- vascular surgery input--Left forearm ecchymosis presumed from arterial line placement/distal pulses noted/no signs of bleeding
or pseudoaneurysm on arterial Doppler imaging--Encourage incentive spirometry--Postop urine retention had Hubbard catheter inserted with postvoid residuals of 700 cc --eventual void trial
Paroxysmal atrial fibrillation/morning of September 30--Placed on diltiazem drip>> back in sinus rhythm that evening--Dual antiplatelet therapy discontinued in favor of anticoagulation with apixaban/asa--Metoprolol XL dose increased to 25 mg twice
daily--Had episode of unresponsiveness while in [facility] and presumed from hypotension and diltiazem infusion now off
Dysphagia--Initial question of aspiration component--Video swallow eval did show mild penetration with thin liquids--No significant dyspnea or respiratory congestion--Transition from IDDSI 6 to regular diet
Night of September 28 had Fall trying to get off commode/mild concussion clinically/resolving--Mild head trauma and elbow (skin tear from fall)--No evidence of any intracranial bleed or skull fracture on CT imaging X2--Evidence of cytotoxic edema from
prior denson radiata ischemic infarct noted--third CT of the head showed late vs acute nonhemorrhagic infarct
Hypothyroidism--continue 62.5 mg of Synthroid
Essential hypertension-- states blood pressure usually runs 120s over 70s or 80s--continue losartan and metoprolol--keep systolic blood pressure less than 180
Depression/anxiety--continue Celexa--May also be exhibiting some signs and symptoms of ICU delirium/lack of sleep
Alcohol use--patient drinks 1 drink per day--watch for DTs
DVT prophylaxis--sequential teds
CODE STATUS--full code
Anticipated Discharge: Today
Subjective/Interval History
-
Date of Service: October 06, 2023
pt waiting for insurance auth to approve [facility]
Objective Data
-
Vital Signs:
max temp for 24 hours
10/05/23
23:32
Temp 98.5 F
Vital Signs
Temp Pulse Resp BP Pulse Ox
98.5 F 63 16 156/73 97
10/06/23 07:10 10/06/23 07:10 10/06/23 07:10 10/06/23 07:10 10/06/23 07:10
I&O
10/05/23 10/06/23 10/07/23
06:59 06:59 06:59
Intake Total 1020 / 1020 960 / 960
Balance 1020 / 1020 960 / 960
Review of Systems
-
All other systems: Reviewed and negative
Physical Exam
-
General: Well Developed, Well Nourished and No Apparent Distress
HEENT: Normocephalic and Atraumatic
Respiratory: Clear to Auscultation; Negative Wheezes or Rhonchi
Cardiac: Regular Rhythm and S1/S2; Negative Murmur
GI: Soft, Nontender, Nondistended and Normal Bowel Sounds
Musculoskeletal: No Clubbing, No Cyanosis and No Edema
Neuro: Awake, Alert and Other (residual stroke effects)
[2023-10-06] MEDS: ELIQUIS 2.5 MG PO (09:41)
[2023-10-06] MEDS: LOW STRENGTH ASPIRIN 81 MG PO (09:42)
[2023-10-06] MEDS: TOPROL XL 25 MG PO (09:42)
[2023-10-06] MEDS: COLACE 100 MG PO (09:42)
[2023-10-06] MEDS: CELEXA 20 MG PO (09:42)
[2023-10-06] MEDS: COZAAR 50 MG PO (09:42)
[2023-10-06 10:59] VITALS: BP 121/66; BP 130/67; BP 131/63; BP 138/71; PULSE 64; PULSE 66; PULSE 74; O2SAT 98
[2023-10-06 11:14] VITALS: BP 121/66; BP 130/74; BP 131/63; BP 138/71; PULSE 64; PULSE 66; PULSE 74; O2SAT 98
[2023-10-06 11:40] VITALS: BP 113/68; BP 114/72; BP 131/65; PULSE 65; PULSE 70; PULSE 81
--- NOTE | 2023-10-06 14:25 | CM ---
Patient has been medically cleared for discharge to [facility] inpatient rehab. t insurance auth required. Per Rupal from [employer]: Auth has been approved from 10/06/23 through to and including 10/17/23, NRD 10/18/23, Auth reference # [id number].
Staff will transport to [place].
NURSE TO NURSE # [phone]
FAX # [phone]
[2023-10-06 15:00] VITALS: BP 136/72
--- NOTE | 2023-10-06 15:43 | W.DCSUMMARY ---
Discharge Summary
Discharge Data
Date of Admission: 09/25/23
Date of Discharge: 10/06/23
-
Pending Results: No
Hospital Course
Primary care physician : Brunilda Childress
Principal Discharge diagnosis : Acute stroke, symptomatic orthostatic, symptomatic left carotid stenosis status post left carotid endarterectomy, paroxysmal atrial fibrillation, fall
Chronic Discharge diagnosis : Essential hypertension, depression/anxiety, alcohol use, hypothyroidism
Hospital Course : Patient was an 83-year-old female who could not move her right leg earlier on the day of admission. Her gave her 2 Tylenol and Job wrap the leg thinking that she had pain as she does have chronic issues with that leg. She
had no issues with swallowing but he kept her in bed. Around 11:30 in the morning patient went upstairs and found her on the floor in the bathroom. He stated she was sitting on her butt but trying to scoot out to the bathroom. She told him that
she had trouble getting up from the toilet. He then noticed a facial droop at that time. She was brought into the emergency department and patient was admitted.
Problem #1: Acute stroke. Patient was admitted and had usual stroke workup. MRI was positive for focal nonhemorrhagic acute infarct in the left denson radiata. Head and neck CTAs were done which showed a 70% left proximal internal artery stenosis
and 50% distal left common carotid stenosis. Vascular surgery was consulted and the patient underwent left carotid endarterectomy on September 27. Physical therapy, Occupational Therapy, speech therapy were all consulted. Physical medicine rehab was
also consulted and the patient does qualify for therapy at [facility]. Patient was initially started on aspirin and Plavix.
Problem #2: Symptomatic orthostasis. This happened on the day or 2 prior to discharge to [facility]. Patient was working with physical therapy and was noted to be orthostatic and symptomatic. Losartan was cut from 100 mg to 50 mg. Patient is no longer
orthostatic nor symptomatic.
Problem #3: Symptomatic left carotid stenosis status post left carotid endarterectomy. This was thought likely to be the cause of the acute stroke. Patient underwent carotid endarterectomy on September 27. No complications were noted.
Problem #4: Paroxysmal atrial fibrillation. On the morning of September 30, patient went into rapid atrial fibrillation. She was placed on a Cardizem drip and converted back to sinus. Because of this, cardiology was consulted and it was recommended that
the dual antiplatelet therapy with aspirin and Plavix was discontinued in favor of starting Eliquis and aspirin. She was eventually weaned off of the Cardizem drip and converted to oral Cardizem and metoprolol.
Problem #5: Fall. On the night of September 28, the patient actually fell trying to get off the commode and had mild head trauma with a concussion. There was no evidence of any bleeding, or skull fracture.
Problem #6: All other medical issues. These include Essential hypertension, depression/anxiety, alcohol use, hypothyroidism. These medical issues were stable during her hospitalization. Medications were continued as able. Patient did not undergo
any DTs from her alcohol use while in the hospital.
Patient is stable to go to [facility] at this time. If there are any questions regarding this dictation or her hospital stay, please not hesitate to call. Our office number is [phone].
Important imaging findings :
MRI BRAIN IMPRESSION:
There is a focal nonhemorrhagic acute infarct in the left desnon radiata.
Mild diffuse volume loss. Mild to moderate leukoaraiosis.
HEAD and NECK CTA IMPRESSION:
No evidence of M1 nor M2 occlusion. No carotid dissection.
70% left proximal internal carotid artery stenosis.
50% distal left common carotid artery stenosis.
Procedure findings :
Pre Op Diagnosis: carotid stenosis
Post Op Diagnosis: carotid stenosis
Procedure Performed: Left carotid endarterectomy with bovine pericardial patch angioplasty and eeg monitoring
Primary Surgeon: Abdifatah
Assist: Jonathan GOFF
Anesthesia: general
Estimated Blood Loss: 200cc
Fluids: see anesthesia flow sheet
Drains/Shunts: none
Specimens/Cultures: carotid plaque
Doppler/Duplex/Angio (Y/N): Y
Complications: none
Discharge Plan
-
Patient Disposition: Acute Rehab Facility
Discharge Diagnosis/Procedures: Acute stroke, symptomatic with systolic, status post left carotid endarterectomy on September 27 for symptomatic left internal carotid stenosis, paroxysmal atrial fibrillation, dysphagia, fall, hypothyroidism, essential
hypertension, depression/anxiety, alcohol use
Condition: Good
Diet: As tolerated
Activity: No strenuous activity
Driving Restrictions: Not until seen by your Dr
Bathing Restrictions: OK to Shower
Activity Restrictions/Additional Instructions:
If you experience severe constant headache, weakness to an arm or leg, change in vision, trouble speaking or any stroke-like symptom, call 911 immediately
If you experience swelling, increased bruising, drainage from neck site, or fever, please call the office
Stand Alone Forms: DC Instr - Vascular OR
Referrals:
Janny Esquivel PA-C [Specified Professional Personl] - 10/28/23 10:40 am (You have a cardiology follow up appointment at the [place] office with Dr. Buck's physician business support assistant, Janny. Please call with questions. )
Sonya Duran PA-C [Specified Professional Personl] - 10/13/23 10:30 am (Vascular follow up)
Brunilda Childress DO [Family Provider] - in less than 1 week
Prescriptions:
New
Eliquis 2.5 mg Tablet
2.5 mg PO BID Qty: 0 0RF
acetaminophen 325 mg Tablet
650 mg PO Q4HPRN PRN (Reason: JOSEPH, mild pain, or temp >100.4F) Qty: 0 0RF
metoprolol succinate 25 mg Tablet Extended Release 24 Hr
25 mg PO BID Qty: 1 0RF
losartan 100 mg Tablet
50 mg PO DAILY Qty: 0 0RF
rosuvastatin 20 mg Tablet
20 mg PO QPM Qty: 1 0RF
aspirin [Children's Aspirin] 81 mg Tablet,Chewable
81 mg PO DAILY Qty: 0 0RF
bisacodyl 10 mg Suppository
10 mg PA DAILYPRN PRN (Reason: constipation) Qty: 0 0RF
docusate sodium 100 mg Capsule
100 mg PO BID Qty: 0 0RF
levothyroxine 25 mcg Tablet
12.5 mcg PO DAILY @ 0600 Qty: 1 0RF
Continued
citalopram [Celexa] 20 mg Tablet
20 mg PO DAILY
levothyroxine [Synthroid] 50 mcg Tablet
50 mcg PO DAILY
Discontinued
metoprolol succinate [Toprol XL] 25 mg Tablet Extended Release 24 Hr
25 mg PO DAILY
losartan 100 mg Tablet
100 mg PO DAILY
acetaminophen [Tylenol] 325 mg Tablet
650 mg PO Q4HPRN PRN (Reason: knee pains)
Discharge Orders:
Discharge Patient (As Directed); Ordered 10/05/23
Ordered By: Rena Campos
Discharge Date and Time
Print Language: BELARUSIAN
== END 2023-10-06 16:07 | DRG 37 ==
LOC: 2 NORTH 16:30
PROVIDERS: Internal Medicine; Nurse Practitioner Acute Care; ADMITTING PHYSICIAN Internal Medicine; CONSULT PHYSICIAN Internal Medicine Cardiovascular Disease; CONSULT PHYSICIAN Physical Medicine & Rehabilitation; CONSULT PHYSICIAN Student in an Organized Health Care Education/Training Program; CONSULT PHYSICIAN Surgery Vascular Surgery; EMERGENCY PHYSICIAN Emergency Medicine; FAMILY PHYSICIAN Family Medicine; OTHER PHYSICIAN Internal Medicine Critical Care Medicine
PROC: 03UL0JZ Supplement Left Internal Carotid Artery with Synthetic Substitute, Open Approach (ICD-10-PCS; 2023-09-28)
PROC: 03CL0ZZ Extirpation of Matter from Left Internal Carotid Artery, Open Approach (ICD-10-PCS; 2023-09-28)
DX: I63.81 Other cerebral infarction due to occlusion or stenosis of small artery (principal); G93.6 Cerebral edema; S06.0XAA Concussion with loss of consciousness status unknown, initial encounter; I65.22 Occlusion and stenosis of left carotid artery; I48.0 Paroxysmal atrial fibrillation; E03.9 Hypothyroidism, unspecified; I10 Essential (primary) hypertension; F32.A Depression, unspecified; F41.9 Anxiety disorder, unspecified; R29.810 Facial weakness; W18.11XA Fall from or off toilet without subsequent striking against object, initial encounter; Y92.231 Patient bathroom in hospital as the place of occurrence of the external cause; F10.90 Alcohol use, unspecified, uncomplicated
CPT/HCPCS: 88304; 88311; 35301; 70450; 70496; 70498; 70551; 74230; 80048; 80053; 80061; 82607; 82728; 82746; 82962; 83036; 83735; 84443; 84484; 85025; 85027; 85610; 85730; 86850; 86900; 86901; 86920; 92507; 92523; 92526; 92610; 92611; 93005; 93306; 93880; 93931; 95938; 95941; 97112; 97116; 97163; 97167; 97530; 97535; 99291; Q9967

== ENCOUNTER → 2023-11-17 12:58 | Outpatient (REF) | payer OTHER, SELFPAY ==
[2023-11-17 13:57] LABS: % Basophils 1.5 % (0-2); % Immature Granulocytes 0.3 % (0-0.5); % Lymphocytes 22.7 % (20.5-51.1); % Monocytes 9.8 % (1.7-9.3); % Neutrophils 57.7 % (42.2-75.2); Absolute Basophils 0.1 10^3/uL (0-0.2); Absolute Eosinophils 0.5 10^3/uL (0-0.7); Absolute Lymphocytes 1.4 10^3/uL (1.2-3.4); Absolute Monocytes 0.6 10^3/uL (0.1-0.6); Absolute Neutrophils 3.5 10^3/uL (1.4-6.5); Hematocrit 34.3 % (37.0-47.0); Hemoglobin 11.3 g/dL (12.0-16.0); Mean Corp Hgb Conc. 32.9 g/dL (33.0-37.0); Mean Corpuscular Hgb 28.4 pg (27.0-31.0); Mean Corpuscular Volume 86.2 fL (81.0-99.0); Mean Platelet Volume 9.2 fL (7.4-10.4); Nucleated Red Blood Cells % 0 %; Platelet Count 198 10^3/uL (130-400); Red Blood Cell Count 3.98 10^6/uL (4.20-5.40); Red Cell Dist. Width 15.3 % (11.5-14.5); White Blood Cell Count 6.1 10^3/uL (4.8-10.8)
[2023-11-17 14:32] LABS: ALT (SGPT) 21 U/L (0-35); AST (SGOT) 36 U/L (14-36); Albumin 3.9 g/dl (3.5-5.0); Alkaline Phosphatase 52 U/L (38-126); Blood Urea Nitrogen 16 mg/dl (7-17); Calcium 9.9 mg/dl (8.4-10.2); Carbon Dioxide 29 mmol/L (22-30); Chloride 100 mmol/L (98-107); Glucose 153 mg/dl (70-99); Iron 54 ug/dl (37-170); Sodium 134 mmol/L (135-145); Total Bilirubin 0.6 mg/dl (0.2-1.3); Total Protein 6.1 g/dl (6.3-8.2); eGFR > 60.00
[2023-11-17 14:38] LABS: IgA 248 mg/dl (70-400)
[2023-11-17 14:42] LABS: Percent Saturation 21 % (20-50); Total Iron Binding Capacity 253 ug/dl (265-497)
[2023-11-17 15:19] LABS: Vitamin B12 585 pg/ml (239-931)
[2023-11-17 16:34] LABS: Folate 11.9 ng/ml (2.76-20)
== END ==
LOC: REG 12:58
PROVIDERS: ATTENDING PHYSICIAN Internal Medicine Gastroenterology; FAMILY PHYSICIAN Family Medicine
DX: R19.7 Diarrhea, unspecified (principal)
CPT/HCPCS: 36415; 80053; 82607; 82728; 82746; 82784; 83540; 83550; 85025

== ENCOUNTER 2023-11-24 12:15 | Outpatient (RCR) | payer OTHER, SELFPAY | END 2023-11-24 23:59 | disposition home or self-care (01) | LOC: RPT 12:15 | PROVIDERS: ATTENDING PHYSICIAN Physical Medicine & Rehabilitation; FAMILY PHYSICIAN Family Medicine | DX: I69.322 Dysarthria following cerebral infarction (principal); I69.390 Apraxia following cerebral infarction; I69.351 Hemiplegia and hemiparesis following cerebral infarction affecting right dominant side; I69.320 Aphasia following cerebral infarction; Z73.6 Limitation of activities due to disability | CPT/HCPCS: 92507; 92523; 97110; 97112; 97116; 97163; 97167; 97530; 97535 ==

== ENCOUNTER 2023-12-28 11:17 | Outpatient (RCR) | payer OTHER, SELFPAY | END 2023-12-28 23:59 | disposition home or self-care (01) | LOC: RPT 11:17 | PROVIDERS: ATTENDING PHYSICIAN Physical Medicine & Rehabilitation; FAMILY PHYSICIAN Family Medicine | DX: I69.351 Hemiplegia and hemiparesis following cerebral infarction affecting right dominant side (principal); Z73.6 Limitation of activities due to disability; I69.398 Other sequelae of cerebral infarction; I69.328 Other speech and language deficits following cerebral infarction; I69.319 Unspecified symptoms and signs involving cognitive functions following cerebral infarction; R53.1 Weakness | CPT/HCPCS: 92507; 96125; 97010; 97014; 97110; 97112; 97116; 97140; 97530; 97535 ==

== ENCOUNTER 2024-01-26 10:42 | Outpatient (RCR) | payer OTHER, SELFPAY | END 2024-01-26 23:59 | disposition home or self-care (01) | LOC: RPT 10:42 | PROVIDERS: ATTENDING PHYSICIAN Family Medicine; FAMILY PHYSICIAN Family Medicine | DX: I69.328 Other speech and language deficits following cerebral infarction (principal); I69.351 Hemiplegia and hemiparesis following cerebral infarction affecting right dominant side; I69.319 Unspecified symptoms and signs involving cognitive functions following cerebral infarction; I69.398 Other sequelae of cerebral infarction; Z73.6 Limitation of activities due to disability | CPT/HCPCS: 92507; 97110; 97112; 97116; 97129; 97130; 97530; 97535 ==

== ENCOUNTER 2024-02-27 11:04 | Outpatient (RCR) | payer OTHER, SELFPAY | END 2024-02-27 23:59 | disposition home or self-care (01) | LOC: RPT 11:04 | PROVIDERS: ATTENDING PHYSICIAN Family Medicine; FAMILY PHYSICIAN Family Medicine | DX: I69.322 Dysarthria following cerebral infarction (principal); I69.398 Other sequelae of cerebral infarction; I69.390 Apraxia following cerebral infarction; I69.328 Other speech and language deficits following cerebral infarction; I69.351 Hemiplegia and hemiparesis following cerebral infarction affecting right dominant side; I69.319 Unspecified symptoms and signs involving cognitive functions following cerebral infarction; I69.320 Aphasia following cerebral infarction; R26.89 Other abnormalities of gait and mobility; R53.1 Weakness; Z73.6 Limitation of activities due to disability | CPT/HCPCS: 97110; 97112; 97116; 97129; 97130; 97530; 97535 ==

== ENCOUNTER 2024-03-28 11:19 | Outpatient (RCR) | payer OTHER, SELFPAY | END 2024-03-29 06:32 | disposition home or self-care (01) | LOC: RPT 11:19 | PROVIDERS: ATTENDING PHYSICIAN Family Medicine; FAMILY PHYSICIAN Family Medicine | DX: I69.30 Unspecified sequelae of cerebral infarction (principal); I69.322 Dysarthria following cerebral infarction (principal); I69.398 Other sequelae of cerebral infarction; I69.390 Apraxia following cerebral infarction; G81.91 Hemiplegia, unspecified affecting right dominant side; I69.351 Hemiplegia and hemiparesis following cerebral infarction affecting right dominant side; I69.320 Aphasia following cerebral infarction; Z73.6 Limitation of activities due to disability; R53.1 Weakness; R49.0 Dysphonia; I69.319 Unspecified symptoms and signs involving cognitive functions following cerebral infarction; J38.01 Paralysis of vocal cords and larynx, unilateral; I69.328 Other speech and language deficits following cerebral infarction | CPT/HCPCS: 92507; 92524; 97110; 97112; 97116; 97129; 97130; 97530; 97535 ==

== ENCOUNTER → 2024-05-18 11:23 | Outpatient (REF) | payer OTHER, SELFPAY | LOC: DHVS 11:23 | PROVIDERS: ATTENDING PHYSICIAN Surgery Vascular Surgery; FAMILY PHYSICIAN Family Medicine | DX: I65.29 Occlusion and stenosis of unspecified carotid artery (principal) | CPT/HCPCS: 93880 ==

== ENCOUNTER → 2024-12-14 11:22 | Outpatient (REF) | payer OTHER, SELFPAY | LOC: DHVS 11:22 | PROVIDERS: ATTENDING PHYSICIAN Surgery Vascular Surgery; FAMILY PHYSICIAN Family Medicine | DX: I65.29 Occlusion and stenosis of unspecified carotid artery (principal) | CPT/HCPCS: 93880 ==

== ENCOUNTER → 2025-03-28 14:34 | Outpatient (REF) | payer OTHER, SELFPAY | LOC: RCS 14:34 | PROVIDERS: ATTENDING PHYSICIAN Internal Medicine Cardiovascular Disease; FAMILY PHYSICIAN Family Medicine | DX: I44.7 Left bundle-branch block, unspecified (principal); I34.0 Nonrheumatic mitral (valve) insufficiency | CPT/HCPCS: 93306 ==